=== PATIENT | male | born 1945 | race Caucasian/White ===

== ENCOUNTER → 2017-08-17 11:29 | Outpatient (CLI) | payer MEDICARE, MEDICAID, SELFPAY ==
--- NOTE | 2017-08-17 11:40 | XR_ITS ---
XR foot RT min 3V HISTORY: ITS.REASON: RT FOOT PAIN ORDERING PHYSICIAN: David Seymour MD PATIENT AGE: 72 years COMPARISON: None FINDINGS: There is moderate hallux valgus with first metatarsophalangeal angle of 33 degrees. Osteoarthritic changes are present at the first metatarsophalangeal joint with bony hypertrophic changes of the distal first metatarsal. Flexion deformity involves the second and third toes with mild hypertrophic changes of the distal aspect of the second metatarsal. No fracture or dislocation. No lytic or blastic change. IMPRESSION: 1. Hallux valgus with bunion formation and mild osteoarthritis. 2. Flexion deformity second and third toes
== END ==
PROVIDERS: PCP Internal Medicine Adolescent Medicine; Visit Provider Internal Medicine Adolescent Medicine
DX: M79.671 Pain in right foot (principal)
CPT/HCPCS: 73630

== ENCOUNTER 2017-08-26 13:37 | Outpatient (RCR) | payer MEDICARE, MEDICAID, SELFPAY | END 2017-08-26 14:24 | disposition home or self-care (01) | LOC: PT 13:37 | PROVIDERS: Family Provider Internal Medicine Adolescent Medicine; PCP Internal Medicine Adolescent Medicine; Visit Provider Internal Medicine Adolescent Medicine | DX: M79.671 Pain in right foot (principal) | CPT/HCPCS: 97760 ==

== ENCOUNTER → 2017-10-07 12:42 | Outpatient (CLI) | payer MEDICARE, MEDICAID, SELFPAY ==
--- NOTE | 2017-10-07 12:47 | CA_ITS ---
PROCEDURE: 2-D M-mode and color Doppler study INDICATIONS FOR THE TEST: Chest pain COPD Heart Murmur Tobacco Smoking Palpitations Fatigue Syncope Edema HypertensionXDiabetes MellitusX Rheumatic Fever SOBXDOEXObesityXXHyperlipidemiaX Family History HD Additional History H/O AF,CAD,CABG,STENTS PATIENT INFORMATION HEIGHT: 69 WEIGHT:270 GENDER: Male B/P:130/70 2-D/M-MODE INTERPRETATION: 2-D MEASUREMENTS OBSERVED VALUES IN CMS Right Ventricular Dimension (RVDd) 3.8 Interventricular Septum (Thickness)(IVsd) 1.2 Left Ventricular Internal Dimensions(LVIDd) 5.4 Left Ventricular Posterior Wall (Thickness)(LVPWd) 1.1 Aortic Root 3.4 Aortic Cusp Separation 1.3 Left Atrial Dimensions (LAD) 4.7 2D 1. Technically difficult study because of the patient's factor and poor acoustic windows, repeat study with Definity contrast is recommended. 2. The left atrium is mildly enlarged, left ventricle is normal size, mild concentric left ventricular hypertrophy, visually estimated ejection fraction is approximately 40%, endocardial surface of poorly visualized, there appears to be marked hypokinesis involving the basal septum and inferior wall. A repeat study with definitely contrast is recommended. 3. The aortic valve is thickened and calcified with restriction the leaflet mobility. 4. The mitral and tricuspid valve leaflets are minimally thickened. 5. The pulmonic valve is poorly visualized. 6. No significant pericardial effusion noted. DOPPLER INTERROGATION: Doppler interrogation of the aortic, mitral and tricuspid valvular presence of May gradient across aortic valve of 11 mmHg represents mild aortic stenosis, there is no aortic insufficiency. There is mild mitral and tricuspid regurgitation, diastolic parameters are inconclusive. Tricuspid regurgitant jet velocity insufficient for calculation of the right ventricular systolic pressure. CONCLUSION: 1. Technically difficult study because of the patient's factor and poor acoustic windows 2. Mildly enlarged left atrium, normal left ventricular size, mild concentric left ventricular hypertrophy, estimated ejection fraction 40% with segmental wall motion abnormality described above, repeat study with Definity contrast is recommended. Diastolic parameters are inconclusive. 3. Thickened and calcified aortic valve with mean gradient across valve of 11 mmHg represents mild aortic stenosis, there is no aortic insufficiency. 4. Mild mitral and tricuspid regurgitation 5. No significant pericardial effusion noted.
--- NOTE | 2017-10-07 12:47 | CI_ITS ---
Cerebrovascular Exam Indications: 780.4 Dizziness and giddiness. 785.9 Bruit. IMPRESSIONS 1. The bilateral vertebral arteries are patent with normal antegrade flow. 2. Study suggests 20-49% stenosis involving the right internal carotid artery. 3. Study suggests 20-49%(UPPER END OF SCALE)stenosis involving the left internal carotid artery. History: Coronary artery disease. Stroke. Risk factors: Hypertension. Hyperlipidemia. Carotid duplex study. Complete study and Doppler flow study including spectral analysis, color and alanis scale imaging. Height: Height: 175.3cm. Height: 69in. Weight: Weight: 122.5kg. Weight: 269.4lb. Body mass index: BMI: 39.9kg/m^2. Body surface area: BSA: 2.5m^2. Location: Vascular laboratory. Patient status: Outpatient. Tables: Arterial flow: + +--------+--------+ Location V sys V ed + +--------+--------+ Right CCA - proximal 57.4cm/s 15.7cm/s + +--------+--------+ Right CCA - distal 66cm/s 18.1cm/s + +--------+--------+ Right ECA 112cm/s -------- + +--------+--------+ Right ICA - proximal 64.1cm/s 27cm/s + +--------+--------+ Right ICA - mid 62.9cm/s 30.8cm/s + +--------+--------+ Right ICA - distal 58.5cm/s 23.9cm/s + +--------+--------+ Right vertebral 28.9cm/s -------- + +--------+--------+ Left CCA - proximal 79.2cm/s 13.2cm/s + +--------+--------+ Left CCA - distal 89.3cm/s 20.7cm/s + +--------+--------+ Left ECA 136cm/s -------- + +--------+--------+ Left ICA - proximal 112cm/s 33.5cm/s + +--------+--------+ Left ICA - mid 113cm/s 30cm/s + +--------+--------+ Left ICA - distal 113cm/s 36.3cm/s + +--------+--------+ Left vertebral 30.7cm/s -------- + +--------+--------+ Velocity ratios: + + + + + + Right, V sys Right, V ed Left, V sys Left, V ed + + + + + + Max ICA/dist CCA 0.97 1.7 1.27 1.75 + + + + + + (Report amended ) Electronically signed by: Devonte Salguero [id number]
== END ==
PROVIDERS: Family Provider Internal Medicine Adolescent Medicine; PCP Internal Medicine Adolescent Medicine; Visit Provider Nurse Practitioner Family
DX: R42 Dizziness and giddiness (principal); R09.89 Other specified symptoms and signs involving the circulatory and respiratory systems; I48.0 Paroxysmal atrial fibrillation
CPT/HCPCS: 93225; 93226; 93306; 93880

== ENCOUNTER 2018-02-26 11:45 | Observation (INO) ==
--- NOTE | 2018-02-26 12:17 | Emergency Department Note ---
ED Disposition Clinical Impression: GI bleed Qualifiers: GI bleed type/associated pathology: unspecified gastrointestinal hemorrhage type Qualified Code(s): K92.2 - Gastrointestinal hemorrhage, unspecified Disposition: Still a Patient Condition on Discharge: Good Referrals: David Seymour MD [Primary Care Provider] - - Critical Care Critical Care Time: No Attestation: On , the high probability of a clinically significant, sudden or life threatenin g deterioration of the following system(s) required my full and direct attention, intervention and personal management. The time I documented below is in addition to time spent performing reported procedures but includes the following listed in this critical care notation. Medical Decision Making - Alonso Inquiry Pt receiving controlled substance: No Vital Signs: 02/26/18 11:55 02/26/18 12:29 02/26/18 12:56 Temperature 98.6 F Temperature Source Oral Pulse Rate [Left Radial] 67 66 63 Respiratory Rate 20 Blood Pressure [Right Arm] 130/68 101/58 L 109/54 L Blood Pressure Mean [Right Arm] 88 72 72 Blood Pressure Source [Right Arm] Automatic Cuff Automatic Cuff Blood Pressure Position [Right Arm] Sitting Sitting 02 Sat by Pulse Oximetry 97 99 96 Oxygen Delivery Method Room Air - Lab Data Lab Results 02/26/18 12:10: WBC 10.1, RBC 4.05 L, Hgb 12.3 L, Hct 38.3 L, MCV 94.6 H, MCH 30.3, MCHC 32.0, RDW 14.6, Plt Count 230, MPV 7.8, Neut % (Auto) 60.8, Lymph % (Auto) 29.2, Scott % (Auto) 5.2, Eos % (Auto) 4.3, Baso % (Auto) 0.4, Neut # (Auto) 6.2, Lymph # (Auto) 3.0, Scott # (Auto) 0.5, Eos # (Auto) 0.4, Baso # (Auto) 0.0 02/26/18 12:10: Sodium 139, Potassium 4.3, Chloride 102, Carbon Dioxide 25, Anion Gap 16.3 H, BUN 22 H, Creatinine 1.28, Estimated Creat Clear 51, Estimated GFR 55 L, Est GFR ( Amer) 66, Glucose 98, Calcium 9.3, Total Bilirubin 0.3, AST 15, ALT 30, Alkaline Phosphatase 59, Total Protein 7.3, Albumin 3.4, Globulin 3.9 H, Albumin/Globulin Ratio 0.9 L 02/26/18 12:10: PT 10.4, INR 1.01 02/26/18 12:20: Stool Occult Blood Positive A Result diagrams: 02/26/18 12:10 02/26/18 12:10 Orders (Tests/Meds): ED MEDICATIONS Generic Name Dose Route Start Last Admin Trade Name Freq PRN Reason Stop Dose Admin Sodium Chloride 1,000 mls @ 100 mls/hr 02/26/18 12:30 02/26/18 12:24 Sod Chlor 0.9% 1000ml Bag IV 03/28/18 12:29 100 mls/hr .Q10H YORDY Administration ORDERS Category Date Time Status Occult Blood,Stool Stat Lab 02/26/18 12:20 Ordered - Physician Consults Physician Consulted: Avinash Seymour Time: 12:57 Reason -: Admission Comment/Response: Agrees to admit the patient to the hospital. We discussed the patient's clinical information, including history, exam, laboratory and radiology results and ED course. Per hospital procedure, I will write temporary bridge inpatient orders on the patient. Specific orders requested by the admitting physician: Hold Eliquis and aspirin. They will get a surgery or GI consult in the morning. Additional Consult: Alicia Time: 13:10 Reason -: Surgical Eval/Care Comment/Response: NPO after midnight General Adult HPI - General Chief complaint: GI Bleed Stated complaint: Passing blood through bowels Time Seen by Provider: 02/26/18 12:17 Mode of Arrival: Ambulatory Limitations: No Limitations Description of Symptoms (Recalled from ER Triage Doc. by RN): Pt states that he has been bleeding alot since 0900 Tuesday night, States the blood is bright red and black mixed together. States it had decreased some but still has alot of back. Denies any abdomen pain. - History of Present Illness HPI narrative: Approximately 10 episodes of passing blood per rectum. States that has been orestes th red and black at different times. This morning it was black. No abdominal pain, rectal pain, hematemesis. No history of gastrointestinal bleeding except a small amounts from hemorrhoids. He is on Eliquis for atrial fibrillation and on 81 mg aspirin. He is not nondrinker, quit drinking alcohol 12 years ago. He does not regularly take any other nonsteroidal anti-inflammatories. He says he has had a colonoscopy less than a year ago that was unremarkable. He does not recall whether he has had an EGD in the past. - Related Data Home Medications Medication Instructions Recorded Confirmed Apixaban [Eliquis] 5 mg PO BID 02/26/18 02/26/18 Aspirin 81 mg PO DAILY 02/26/18 02/26/18 Bisoprolol Fumarate [Bisoprolol 10 mg PO BID 02/26/18 02/26/18 10mg Tablet] Cetirizine HCl [Zyrtec] 10 mg PO DAILY 02/26/18 02/26/18 Fluticasone Propionate [Flovent 50 mcg IH DAILY 02/26/18 02/26/18 Diskus] Furosemide [Furosemide 40MG tAB] 20 mg PO DAILY 02/26/18 02/26/18 Insulin Aspart [Novolog Flexpen] 60 unit SQ BID 02/26/18 02/26/18 Lisinopril [Lisinopril 20mg Tab] 20 mg PO DAILY 02/26/18 02/26/18 Metformin HCl [Fortamet] 1,000 mg PO BID 02/26/18 02/26/18 Umeclidinium Brm/Vilanterol Tr 1 each IH DAILY 02/26/18 02/26/18 [Anoro Ellipta 62.5-25 Mcg INH] dilTIAZem HCl [Diltiazem 240mg 240 mg PO BID 02/26/18 02/26/18 24Hr ER Cap] Allergies Allergy/AdvReac Type Severity Reaction Status Date / Time Vydvegl-Hpo-Gdw Reductase Allergy Unknown MUSCLE Verified 02/26/18 12:23 Inhibitor WEAKNESS [[id number]-[id number]-MNX REDUCTASE INHIBITOR] [facility] History I have reviewed the patient's past medical history: Yes Medical History: Reports:: Diabetes Mellitus Type 2 Denies:: Diabetes Mellitus Type 1 - Social History Alcohol Intake: never - Psychiatric History Expresses thoughts of harming self/others: None Suicide Plan Description: No Plan ROS Obtained: Yes All systems reviewed & no additional complaints - Constitutional Constitutional: Denies fever(s) - Cardiovascular Cardiovascular: Denies chest pain - Respiratory Respiratory: No dyspnea - Gastrointestinal Gastrointestingal: Reports: bright red blood in stools, black, tarry stools. Denies: abdominal pain, vomiting blood, vomiting Physical Exam - General General appearance: alert, in no apparent distress - Head Head exam: atraumatic, normocephalic - Eye Eye exam: Present: normal appearance, PERRL, EOMI - ENT ENT exam: Present: mucous membranes moist - Neck Neck exam: Present: normal inspection - Chest Chest inspection: Present: normal inspection, symmetric chest wall rise - Respiratory Respiratory exam: Present: normal lung sounds bilaterally. Absent: respiratory distress - Cardiovascular Cardiovascular exam: Present: regular rate, normal heart sounds - Abdominal Exam Abdominal exam: Present: soft. Absent: distention, tenderness, guarding, rebound - Rectal Exam Rectal exam: Present: hemorrhoids (External), other (Red blood present in the rectum). Absent: fecal impaction, mass, tenderness - Extremities Exam Extremities exam: Present: normal inspection - Neurological Exam Neurological exam: Present: alert, oriented X3, CN II-XII intact. Absent: motor sensory deficit - Psychiatric Psychiatric exam: Present: normal affect, normal mood - Skin Skin exam: Present: warm, dry, normal color. Absent: pallor
[2018-02-26 12:19] LABS: Basophils % 0.4 % (0.1-2.0); Eosinophils # 0.4 K/mm3 (0.0-0.4); Eosinophils % 4.3 % (0.1-12.0); Hematocrit 38.3 % (42.0-52.0); Hemoglobin 12.3 g/dL (14.1-18.0); Lymphocytes % 29.2 K/mm3 (10-50); Mean Corpuscular Hemoglobin 30.3 pg (27.0-31.2); Mean Corpuscular Volume 94.6 fl (80-94); Mean Platelet Volume 7.8 fl (7.4-10.4); Monocytes # 0.5 K/mm3 (0.1-1.0); Monocytes % 5.2 % (1.7-9.3); Neutrophils # 6.2 K/mm3 (1.8-7.8); Neutrophils % 60.8 % (37.0-80.0); Platelet Count 230 K/mm3 (142-424); Red Blood Count 4.05 M/mm3 (4.60-6.20); Red Cell Distribution Width 14.6 % (11.5-17.5); White Blood Count 10.1 K/mm3 (4.8-10.8)
[2018-02-26 12:28] LABS: INR 1.01 (0.9-1.1); Prothrombin Time 10.4 seconds (9.4-11.8)
[2018-02-26 12:32] LABS: Albumin Level 3.4 gm/dL (3.4-5.0); Albumin/Globulin Ratio 0.9 (1.1-1.8); Anion Gap 16.3 mEq/L (5-15); Bilirubin,Total 0.3 mg/dL (0.2-1.0); Calcium 9.3 mg/dL (8.5-10.1); Globulin 3.9 gm/dl (1.3-3.2); Potassium 4.3 mmoL/L (3.5-5.1); Total Protein,Serum 7.3 gm/dL (6.4-8.2)
--- NOTE | 2018-02-26 14:21 | Pharmacy Consult Notes ---
[facility] Pharmacy VTE Monitoring - Patient Demographics Admission date: 02/26/18 Report Date: 02/26/18 Time: 14:21 Allergies/Adverse Reactions: Patient Allergies Fplhbfu-Qdi-Wez Reductase Inhibitor [ZEWCDFO-NIM-XCL REDUCTASE INHIBITOR] Allergy (Unknown, Verified 02/26/18 12:23) MUSCLE WEAKNESS Height: 1.75 m Weight: 127.006 kg Patient Problems: Current Active Problems GI bleed (Acute) - VTE Risk Labs: VTE Related Lab Results Hgb 12.3 g/dL (14.1-18.0) L 02/26/18 12:10 Hct 38.3 % (42.0-52.0) L 02/26/18 12:10 Plt Count 230 K/mm3 (142-424) 02/26/18 12:10 PT 10.4 seconds (9.4-11.8) 02/26/18 12:10 INR 1.01 (0.9-1.1) 02/26/18 12:10 BUN 22 mg/dL (7-18) H 02/26/18 12:10 Creatinine 1.28 mg/dL (0.70-1.30) 02/26/18 12:10 Estimated Creat Clear 51 mL/min (0-300) 02/26/18 12:10 - Prophylaxis Types of VTE Prophylaxis: TEDS Knee High Location of Applied Device: Bilateral Lower Extremeties (DELILAH HOSE ORDERED)
--- NOTE | 2018-02-26 15:48 | History & Physical Report ---
*Admission Date: 02/26/18 *Chief complaint: Bright red blood per rectum *History of present illness: Mr. Leblanc is a 72-year-old male with significant cardiac history status post CABGx5 and stent placement, atrial fibrillation on Eliquis and aspirin, hypertension, morbid obesity, ALICIA, BPH who presents with multiple episodes of bright red blood per rectum. He states that he has had approximately 10 episodes of red blood and black stool since Abelardo evening. He has had a history of some blood over the past several years but nothing as brisk or frequent as this episode. He denies any abdominal pain, rectal pain, hematemesis, nausea or vomiting with his current symptoms. Does not recall history of ever having a colonoscopy or EGD. No known history of diverticulosis. Interestingly per ER documentation patient stated at that time that he had had a colonoscopy less than a year ago that was unremarkable however daughter at bedside does not recall him ever having one to her knowledge and he is unclear at this time once getting to the floor if he is ever had a C scope. Presented to the ER due to his symptoms, patient was admitted for further management. Currently hemodynamically stable, mild anemia compared to baseline of normal hemoglobin. Additionally patient reports that he has had vertigo that waxes and wanes for many years. His daughter is concerned that this may be related to his heart problems. He denies any active worsening dyspnea with exertion, orthopnea, lower extremity edema, uptake [facility] History I have reviewed the patient's past medical history: Yes Medical History: Reports:: Atrial Fibrillation, Diabetes Mellitus Type 2, Hypertension, Myocardial Infarction Denies:: Cancer, Diabetes Mellitus Type 1, MRSA Other Medical History: Reports: Arthritis, Sinus Problems Other Surgeries: Yes: Cardiac Catheterization, Cardiac Surgery, Colonoscopy, Sinus Surgery Amputation: No Fractures: No - *Social History Educational Level: Attended High School Alcohol Intake: never Occupational Status: disabled Housing: house Household Members: none - Psychiatric History Expresses thoughts of harming self/others: None Suicide Plan Description: No Plan Review of Systems - Review of Systems Review of systems:: pertinent systems reviewed and negative unless documented below Meds Home Medications Medication Instructions Recorded Confirmed Type Apixaban [Eliquis] 5 mg PO BID 02/26/18 02/26/18 History Aspirin 81 mg PO DAILY 02/26/18 02/26/18 History Bisoprolol Fumarate [Bisoprolol 5 mg PO BID 02/26/18 02/26/18 History 10mg Tablet] Cetirizine HCl [Zyrtec] 10 mg PO DAILY 02/26/18 02/26/18 History Fluticasone Propionate [Flovent 50 mcg IH DAILY 02/26/18 02/26/18 History Diskus] Furosemide [Furosemide 40MG tAB] 20 mg PO DAILY 02/26/18 02/26/18 History Insulin Aspart [Novolog Flexpen] 0 units SQ ACHS 02/26/18 02/26/18 History Lisinopril [Lisinopril 20mg Tab] 20 mg PO DAILY 02/26/18 02/26/18 History Metformin HCl [Fortamet] 1,000 mg PO BID 02/26/18 02/26/18 History Umeclidinium Brm/Vilanterol Tr 1 each IH DAILY 02/26/18 02/26/18 History [Anoro Ellipta 62.5-25 Mcg INH] dilTIAZem HCl [Diltiazem 240mg 240 mg PO BID 02/26/18 02/26/18 History 24Hr ER Cap] Allergies Allergy/AdvReac Type Severity Reaction Status Date / Time Pjzfvio-Mqe-Hyy Reductase Allergy Unknown MUSCLE Verified 02/26/18 12:23 Inhibitor WEAKNESS [WJNMDIN-VTQ-NSF REDUCTASE INHIBITOR] Exam Vital signs and Labs for Last 24 Hours: Temp Pulse Resp BP Pulse Ox 97.3 F L 67 17 138/63 99 02/26/18 14:45 02/26/18 14:45 02/26/18 14:45 02/26/18 14:45 02/26/18 14:45 Laboratory Results - last 24 hr 02/26/18 12:10: WBC 10.1, RBC 4.05 L, Hgb 12.3 L, Hct 38.3 L, MCV 94.6 H, MCH 30.3, MCHC 32.0, RDW 14.6, Plt Count 230, MPV 7.8, Neut % (Auto) 60.8, Lymph % (Auto) 29.2, Maverick % (Auto) 5.2, Eos % (Auto) 4.3, Baso % (Auto) 0.4, Neut # (Auto) 6.2, Lymph # (Auto) 3.0, Maverick # (Auto) 0.5, Eos # (Auto) 0.4, Baso # (Auto) 0.0 02/26/18 12:10: Sodium 139, Potassium 4.3, Chloride 102, Carbon Dioxide 25, Anion Gap 16.3 H, BUN 22 H, Creatinine 1.28, Estimated Creat Clear 51, Estimated GFR 55 L, Est GFR ( Amer) 66, Glucose 98, Calcium 9.3, Total Bilirubin 0.3, AST 15, ALT 30, Alkaline Phosphatase 59, Total Protein 7.3, Albumin 3.4, Globulin 3.9 H, Albumin/Globulin Ratio 0.9 L 02/26/18 12:10: PT 10.4, INR 1.01 02/26/18 12:20: Stool Occult Blood Positive A I & O for Last 24 hours: Intake & Output 02/23/18 02/24/18 02/25/18 02/26/18 23:59 23:59 23:59 22:59 Weight 124.426 kg - *Routine HEENT Exam Head: Present: normocephalic, atraumatic Eye: Present: EOMI, PERRL ENT: Present: mucous membranes moist - *Routine Neck Exam Present: supple. Absent: JVD - *Routine Respiratory Exam Present: CTA bilaterally. Absent: prolonged expiratory phase, wheezes, crackles - *Routine Cardiovascular Exam Present: Normal S2, murmur, irregular rhythm Comments: Distant heart sounds - *Routine Abdominal Exam Present: soft, normoactive bowel sounds. Absent: tenderness Comments: Protuberant - *Routine Rectal Exam Patient deferred: visual exam - *Routine Exam Patient deferred: penile exam - *Routine Extremities Exam Present: edema. Absent: cyanosis, clubbing - *Routine Skin Exam Present: intact. Absent: cyanosis, erythema - *Routine Neurological Exam Present: alert, oriented X3, CN II-XII intact. Absent: altered mental status, normal speech hearing impairment Assessment and Plan (1) Heart failure with reduced ejection fraction, NYHA class II Current visit: Yes Status: Chronic Category: Medical Code(s): I50.20 - Unspecified systolic (congestive) heart failure Last echo performed in September with EF 40% -Continue home medications -Consider cardiology consult if symptoms worsen -Continues lisinopril for hypertension (2) A-fib Current visit: Yes Status: Chronic Category: Medical Code(s): I48.91 - Unspecified atrial fibrillation On Eliquis and aspirin, hold in setting of GI bleed -Rate controlled at this time diltiazem, continue home medication (3) Anemia Current visit: Yes Status: Acute Qualifiers: Anemia type: other cause Other causes of anemia: acute posthemorrhagic Qualified Code(s): D62 - Acute posthemorrhagic anemia Category: Medical Code(s): D64.9 - Anemia, unspecified Due to GI bleed -Monitor for further bleed -Transfusion goal greater than 7 if has further bleeding -Repeat CBC in the morning, or as needed if has brisk bleed (4) Class 3 severe obesity due to excess calories in adult Current visit: Yes Status: Chronic Qualifiers: Serious obesity comorbidity presence: with serious comorbidity Category: Medical Code(s): E66.01 - Morbid (severe) obesity due to excess calories Complicates all aspects of care (5) Obstructive sleep apnea Current visit: Yes Status: Chronic Category: Medical Code(s): G47.33 - Obstructive sleep apnea (adult) (pediatric) Wears CPAP at home, declined wearing CPAP in the hospital, will take precautions with elevating head of bed and supplemental oxygen if needed if symptomatic in the hospital (6) GI bleed Current visit: Yes Status: Acute Qualifiers: GI bleed type/associated pathology: unspecified gastrointestinal hemorrhage type Qualified Code(s): K92.2 - Gastrointestinal hemorrhage, unspecified Category: Medical Code(s): K92.2 - Gastrointestinal hemorrhage, unspecified Due to suspected reticulosis, hemorrhoids, upper GI bleed, AVMs, cancer. At this time differential is broad given no history of screening colonoscopies. Continue to monitor for further bleeding -Consult surgery for scope in the morning -Holding anti-coag -N.p.o. at midnight with maintenance fluids beginning at that time
[2018-02-26 20:19] LABS: Basophils % 0.4 % (0.1-2.0); Eosinophils # 0.4 K/mm3 (0.0-0.4); Eosinophils % 4.7 % (0.1-12.0); Hemoglobin 11.2 g/dL (14.1-18.0); Lymphocytes # 3.1 K/mm3 (0.7-4.5); Lymphocytes % 33.5 K/mm3 (10-50); Mean Corpuscular HGB Conc 31.8 g/dL (31.8-35.4); Mean Corpuscular Hemoglobin 29.9 pg (27.0-31.2); Mean Corpuscular Volume 93.9 fl (80-94); Mean Platelet Volume 7.5 fl (7.4-10.4); Monocytes # 0.5 K/mm3 (0.1-1.0); Monocytes % 4.9 % (1.7-9.3); Neutrophils # 5.2 K/mm3 (1.8-7.8); Neutrophils % 56.5 % (37.0-80.0); Platelet Count 224 K/mm3 (142-424); Red Blood Count 3.73 M/mm3 (4.60-6.20); Red Cell Distribution Width 14.6 % (11.5-17.5); White Blood Count 9.2 K/mm3 (4.8-10.8)
[2018-02-27 06:45] LABS: Basophils % 0.3 % (0.1-2.0); Eosinophils # 0.5 K/mm3 (0.0-0.4); Eosinophils % 5.8 % (0.1-12.0); Hematocrit 35.9 % (42.0-52.0); Hemoglobin 11.3 g/dL (14.1-18.0); Lymphocytes # 2.9 K/mm3 (0.7-4.5); Lymphocytes % 35.6 K/mm3 (10-50); Mean Corpuscular HGB Conc 31.5 g/dL (31.8-35.4); Mean Corpuscular Hemoglobin 29.8 pg (27.0-31.2); Mean Corpuscular Volume 94.7 fl (80-94); Mean Platelet Volume 7.8 fl (7.4-10.4); Monocytes # 0.4 K/mm3 (0.1-1.0); Monocytes % 4.9 % (1.7-9.3); Neutrophils # 4.4 K/mm3 (1.8-7.8); Neutrophils % 53.5 % (37.0-80.0); Platelet Count 221 K/mm3 (142-424); Red Blood Count 3.79 M/mm3 (4.60-6.20); Red Cell Distribution Width 14.8 % (11.5-17.5); White Blood Count 8.1 K/mm3 (4.8-10.8)
[2018-02-27 06:53] LABS: Anion Gap 12.1 mEq/L (5-15); Potassium 4.1 mmoL/L (3.5-5.1)
--- NOTE | 2018-02-27 08:27 | Progress Note ---
Internal Medicine - PN: Farhad *Date: 02/27/18 *Time: 08:26 Interval history: Overall patient feels fairly well. He has had some gas and a small bowel movement without any blood. He reports no abdominal pain. Reports no vomiting. Exam Vital signs and Labs for Last 24 Hours: Temp Pulse Resp BP Pulse Ox 98.2 F 65 18 118/59 L 97 02/27/18 07:38 02/27/18 07:38 02/27/18 07:38 02/27/18 07:38 02/27/18 07:38 Laboratory Results - last 24 hr 02/26/18 12:10: WBC 10.1, RBC 4.05 L, Hgb 12.3 L, Hct 38.3 L, MCV 94.6 H, MCH 30.3, MCHC 32.0, RDW 14.6, Plt Count 230, MPV 7.8, Neut % (Auto) 60.8, Lymph % (Auto) 29.2, [place] % (Auto) 5.2, Eos % (Auto) 4.3, Baso % (Auto) 0.4, Neut # (Auto) 6.2, Lymph # (Auto) 3.0, [place] # (Auto) 0.5, Eos # (Auto) 0.4, Baso # (Auto) 0.0 02/26/18 12:10: Sodium 139, Potassium 4.3, Chloride 102, Carbon Dioxide 25, Anion Gap 16.3 H, BUN 22 H, Creatinine 1.28, Estimated Creat Clear 51, Estimated GFR 55 L, Est GFR ( Amer) 66, Glucose 98, Calcium 9.3, Total Bilirubin 0.3, AST 15, ALT 30, Alkaline Phosphatase 59, Total Protein 7.3, Albumin 3.4, Globulin 3.9 H, Albumin/Globulin Ratio 0.9 L 02/26/18 12:10: PT 10.4, INR 1.01 02/26/18 12:20: Stool Occult Blood Positive A 02/26/18 16:30: POC Glucose 170 H 02/26/18 20:01: WBC 9.2, RBC 3.73 L, Hgb 11.2 L, Hct 35.0 L, MCV 93.9, MCH 29.9, MCHC 31.8, RDW 14.6, Plt Count 224, MPV 7.5, Neut % (Auto) 56.5, Lymph % (Auto) 33.5, [place] % (Auto) 4.9, Eos % (Auto) 4.7, Baso % (Auto) 0.4, Neut # (Auto) 5.2, Lymph # (Auto) 3.1, [place] # (Auto) 0.5, Eos # (Auto) 0.4, Baso # (Auto) 0.0 02/26/18 20:45: POC Glucose 184 H 02/27/18 05:49: WBC 8.1, RBC 3.79 L, Hgb 11.3 L, Hct 35.9 L, MCV 94.7 H, MCH 29.8, MCHC 31.5 L, RDW 14.8, Plt Count 221, MPV 7.8, Neut % (Auto) 53.5, Lymph % (Auto) 35.6, [place] % (Auto) 4.9, Eos % (Auto) 5.8, Baso % (Auto) 0.3, Neut # (Auto) 4.4, Lymph # (Auto) 2.9, [place] # (Auto) 0.4, Eos # (Auto) 0.5 H, Baso # (Auto) 0.0 02/27/18 05:49: Sodium 139, Potassium 4.1, Chloride 104, Carbon Dioxide 27, Anion Gap 12.1, BUN 15 D, Creatinine 1.04, Estimated Creat Clear 60, Estimated GFR 70, Est GFR ( Amer) 84 D, Glucose 171 H D, Calcium 9.0 02/27/18 06:03: POC Glucose 180 H I & O for Last 24 hours: Intake & Output 02/24/18 02/25/18 02/26/18 02/27/18 12:59 12:59 11:59 11:59 Intake Total 1542 / 1542 Output Total 2300 / 2300 Balance -758 / -758 Weight 275 lb 2 oz Narrative: Patient is awake, alert, oropharynx clear, no JVD. Heart rate rate controlled with occasional ectopic beats. Lungs are clear. Abdomen is soft and nontender. I reviewed labs showing no significant decrease in hemoglobin. Assessment and Plan (1) Heart failure with reduced ejection fraction, NYHA class II Current visit: Yes Status: Chronic Category: Medical Code(s): I50.20 - Unspecified systolic (congestive) heart failure (2) A-fib Current visit: Yes Status: Chronic Category: Medical Code(s): I48.91 - Unspecified atrial fibrillation (3) Anemia Current visit: Yes Status: Acute Qualifiers: Anemia type: other cause Other causes of anemia: acute posthemorrhagic Qualified Code(s): D62 - Acute posthemorrhagic anemia Category: Medical Code(s): D64.9 - Anemia, unspecified (4) Class 3 severe obesity due to excess calories in adult Current visit: Yes Status: Chronic Qualifiers: Serious obesity comorbidity presence: with serious comorbidity Category: Medical Code(s): E66.01 - Morbid (severe) obesity due to excess calories (5) Obstructive sleep apnea Current visit: Yes Status: Chronic Category: Medical Code(s): G47.33 - Obstructive sleep apnea (adult) (pediatric) (6) GI bleed Current visit: Yes Status: Acute Qualifiers: GI bleed type/associated pathology: unspecified gastrointestinal hemorrhage type Qualified Code(s): K92.2 - Gastrointestinal hemorrhage, unspecified Category: Medical Code(s): K92.2 - Gastrointestinal hemorrhage, unspecified - Assessment and plan all Dx Assessment and Plan for all problems:: Patient's heart failure and A. fib are stable. Continue to hold anticoagulation therapy. Patient reports that his bleeding started after he loaded some wood in his fireplace Tuesday night. This sounds to me like hemorrhoidal bleeding. Surgical evaluation to schedule endoscopy. I think patient is safe to discharge while holding anticoagulation after surgical evaluation.
--- NOTE | 2018-02-27 11:28 | Consult Report ---
*Admission Date: 02/26/18 *Chief complaint: Blood in stools *History of present illness: Patient is a pleasant 72-year-old white male on Eliquis for atrial fibrillation. He states that Tuesday he began noticing some passage of bright red blood per rectum. He states that this was mixed in his stools of darker blood. He had multiple bloody bowel movements over the next couple of days and then presented to the emergency department yesterday afternoon. Patient was admitted for inpatient management of GI bleed. Initially it was felt that the patient had a colonoscopy within the past year but it is apparent more likely that he has never had prior colonoscopy or upper endoscopy. He was admitted and had remained stable with essentially stable hemoglobin. Surgical consultation was obtained. Review of Systems - Review of Systems Review of systems:: pertinent systems reviewed and negative unless documented below [facility] History Medical History: Reports:: Atrial Fibrillation, Diabetes Mellitus Type 2, Hypertension, Myocardial Infarction Denies:: Cancer, Diabetes Mellitus Type 1, MRSA Other Medical History: Reports: Arthritis, Sinus Problems Other Surgeries: Yes: Cardiac Catheterization, Cardiac Surgery, Colonoscopy, Sinus Surgery Amputation: No Fractures: No - *Social History Educational Level: Attended High School Alcohol Intake: never Occupational Status: disabled Housing: house Household Members: none - Psychiatric History Expresses thoughts of harming self/others: None Suicide Plan Description: No Plan Meds Home Medications Medication Instructions Recorded Confirmed Type Apixaban [Eliquis] 5 mg PO BID 02/26/18 02/26/18 History Aspirin 81 mg PO DAILY 02/26/18 02/26/18 History Bisoprolol Fumarate [Bisoprolol 5 mg PO BID 02/26/18 02/26/18 History 10mg Tablet] Cetirizine HCl [Zyrtec] 10 mg PO DAILY 02/26/18 02/26/18 History Fluticasone Propionate [Flovent 50 mcg IH DAILY 02/26/18 02/26/18 History Diskus] Furosemide [Furosemide 40MG tAB] 20 mg PO DAILY 02/26/18 02/26/18 History Insulin Aspart [Novolog Flexpen] 0 units SQ ACHS 02/26/18 02/26/18 History Lisinopril [Lisinopril 20mg Tab] 20 mg PO DAILY 02/26/18 02/26/18 History Metformin HCl [Fortamet] 1,000 mg PO BID 02/26/18 02/26/18 History Umeclidinium Brm/Vilanterol Tr 1 each IH DAILY 02/26/18 02/26/18 History [Anoro Ellipta 62.5-25 Mcg INH] dilTIAZem HCl [Diltiazem 240mg 240 mg PO BID 02/26/18 02/26/18 History 24Hr ER Cap] Allergies Allergy/AdvReac Type Severity Reaction Status Date / Time [id number]-Qsb-Kfd Reductase Allergy Unknown MUSCLE Verified 02/26/18 12:23 Inhibitor WEAKNESS [[id number] REDUCTASE INHIBITOR] Exam Vital signs and Labs for Last 24 Hours: Temp Pulse Resp BP Pulse Ox 98.2 F 65 18 118/59 L 97 02/27/18 07:38 02/27/18 09:53 02/27/18 09:53 02/27/18 07:38 02/27/18 09:53 Laboratory Results - last 24 hr 02/26/18 12:10: WBC 10.1, RBC 4.05 L, Hgb 12.3 L, Hct 38.3 L, MCV 94.6 H, MCH 30.3, MCHC 32.0, RDW 14.6, Plt Count 230, MPV 7.8, Neut % (Auto) 60.8, Lymph % (Auto) 29.2, [place] % (Auto) 5.2, Eos % (Auto) 4.3, Baso % (Auto) 0.4, Neut # (Auto) 6.2, Lymph # (Auto) 3.0, [place] # (Auto) 0.5, Eos # (Auto) 0.4, Baso # (Auto) 0.0 02/26/18 12:10: Sodium 139, Potassium 4.3, Chloride 102, Carbon Dioxide 25, Anion Gap 16.3 H, BUN 22 H, Creatinine 1.28, Estimated Creat Clear 51, Estimated GFR 55 L, Est GFR ( Amer) 66, Glucose 98, Calcium 9.3, Total Bilirubin 0.3, AST 15, ALT 30, Alkaline Phosphatase 59, Total Protein 7.3, Albumin 3.4, Globulin 3.9 H, Albumin/Globulin Ratio 0.9 L 02/26/18 12:10: PT 10.4, INR 1.01 02/26/18 12:20: Stool Occult Blood Positive A 02/26/18 16:30: POC Glucose 170 H 02/26/18 20:01: WBC 9.2, RBC 3.73 L, Hgb 11.2 L, Hct 35.0 L, MCV 93.9, MCH 29.9, MCHC 31.8, RDW 14.6, Plt Count 224, MPV 7.5, Neut % (Auto) 56.5, Lymph % (Auto) 33.5, [place] % (Auto) 4.9, Eos % (Auto) 4.7, Baso % (Auto) 0.4, Neut # (Auto) 5.2, Lymph # (Auto) 3.1, [place] # (Auto) 0.5, Eos # (Auto) 0.4, Baso # (Auto) 0.0 02/26/18 20:45: POC Glucose 184 H 02/27/18 05:49: WBC 8.1, RBC 3.79 L, Hgb 11.3 L, Hct 35.9 L, MCV 94.7 H, MCH 29.8, MCHC 31.5 L, RDW 14.8, Plt Count 221, MPV 7.8, Neut % (Auto) 53.5, Lymph % (Auto) 35.6, [place] % (Auto) 4.9, Eos % (Auto) 5.8, Baso % (Auto) 0.3, Neut # (Auto) 4.4, Lymph # (Auto) 2.9, [place] # (Auto) 0.4, Eos # (Auto) 0.5 H, Baso # (Auto) 0.0 02/27/18 05:49: Sodium 139, Potassium 4.1, Chloride 104, Carbon Dioxide 27, Anion Gap 12.1, BUN 15 D, Creatinine 1.04, Estimated Creat Clear 60, Estimated GFR 70, Est GFR ( Amer) 84 D, Glucose 171 H D, Calcium 9.0 02/27/18 06:03: POC Glucose 180 H I & O for Last 24 hours: Intake & Output 02/24/18 02/25/18 02/26/18 02/27/18 12:59 12:59 11:59 11:59 Intake Total 1542 / 1542 Output Total 2300 / 2300 Balance -758 / -758 Weight 275 lb 2 oz - Constitutional no acute distress - *Routine Respiratory Exam Present: CTA bilaterally - *Routine Cardiovascular Exam Present: Normal S1, Normal S2 - *Routine Abdominal Exam Present: soft Results - Labs 02/27/18 05:49 02/27/18 05:49 Laboratory Results - last 24 hr 02/26/18 12:10: WBC 10.1, RBC 4.05 L, Hgb 12.3 L, Hct 38.3 L, MCV 94.6 H, MCH 30.3, MCHC 32.0, RDW 14.6, Plt Count 230, MPV 7.8, Neut % (Auto) 60.8, Lymph % (Auto) 29.2, [place] % (Auto) 5.2, Eos % (Auto) 4.3, Baso % (Auto) 0.4, Neut # (Auto) 6.2, Lymph # (Auto) 3.0, [place] # (Auto) 0.5, Eos # (Auto) 0.4, Baso # (Auto) 0.0 02/26/18 12:10: Sodium 139, Potassium 4.3, Chloride 102, Carbon Dioxide 25, Anion Gap 16.3 H, BUN 22 H, Creatinine 1.28, Estimated Creat Clear 51, Estimated GFR 55 L, Est GFR ( Amer) 66, Glucose 98, Calcium 9.3, Total Bilirubin 0.3, AST 15, ALT 30, Alkaline Phosphatase 59, Total Protein 7.3, Albumin 3.4, Globulin 3.9 H, Albumin/Globulin Ratio 0.9 L 02/26/18 12:10: PT 10.4, INR 1.01 02/26/18 12:20: Stool Occult Blood Positive A 02/26/18 16:30: POC Glucose 170 H 02/26/18 20:01: WBC 9.2, RBC 3.73 L, Hgb 11.2 L, Hct 35.0 L, MCV 93.9, MCH 29.9, MCHC 31.8, RDW 14.6, Plt Count 224, MPV 7.5, Neut % (Auto) 56.5, Lymph % (Auto) 33.5, [place] % (Auto) 4.9, Eos % (Auto) 4.7, Baso % (Auto) 0.4, Neut # (Auto) 5.2, Lymph # (Auto) 3.1, [place] # (Auto) 0.5, Eos # (Auto) 0.4, Baso # (Auto) 0.0 02/26/18 20:45: POC Glucose 184 H 02/27/18 05:49: WBC 8.1, RBC 3.79 L, Hgb 11.3 L, Hct 35.9 L, MCV 94.7 H, MCH 29.8, MCHC 31.5 L, RDW 14.8, Plt Count 221, MPV 7.8, Neut % (Auto) 53.5, Lymph % (Auto) 35.6, [place] % (Auto) 4.9, Eos % (Auto) 5.8, Baso % (Auto) 0.3, Neut # (Auto) 4.4, Lymph # (Auto) 2.9, [place] # (Auto) 0.4, Eos # (Auto) 0.5 H, Baso # (Auto) 0.0 02/27/18 05:49: Sodium 139, Potassium 4.1, Chloride 104, Carbon Dioxide 27, Anion Gap 12.1, BUN 15 D, Creatinine 1.04, Estimated Creat Clear 60, Estimated GFR 70, Est GFR ( Amer) 84 D, Glucose 171 H D, Calcium 9.0 02/27/18 06:03: POC Glucose 180 H Assessment and Plan (1) Heart failure with reduced ejection fraction, NYHA class II Current visit: Yes Status: Chronic Category: Medical Code(s): I50.20 - Unspecified systolic (congestive) heart failure (2) A-fib Current visit: Yes Status: Chronic Category: Medical Code(s): I48.91 - Unspecified atrial fibrillation (3) Anemia Current visit: Yes Status: Acute Qualifiers: Anemia type: other cause Other causes of anemia: acute posthemorrhagic Qualified Code(s): D62 - Acute posthemorrhagic anemia Category: Medical Code(s): D64.9 - Anemia, unspecified (4) Class 3 severe obesity due to excess calories in adult Current visit: Yes Status: Chronic Qualifiers: Serious obesity comorbidity presence: with serious comorbidity Category: Medical Code(s): E66.01 - Morbid (severe) obesity due to excess calories (5) Obstructive sleep apnea Current visit: Yes Status: Chronic Category: Medical Code(s): G47.33 - Obstructive sleep apnea (adult) (pediatric) (6) GI bleed Current visit: Yes Status: Acute Qualifiers: GI bleed type/associated pathology: unspecified gastrointestinal hemorrhage type Qualified Code(s): K92.2 - Gastrointestinal hemorrhage, unspecified Category: Medical Code(s): K92.2 - Gastrointestinal hemorrhage, unspecified - Assessment and plan all Dx Assessment and Plan for all problems:: Clinically this seems to be more of a lower allergy. However, I would advocate upper endoscopy prior to discharge to rule out upper GI source. This will be for diagnostic purposes. If this is unremarkable he may be able to be disc harged and follow-up as an outpatient for scheduling of colonoscopy.
--- NOTE | 2018-02-27 15:05 | Progress Note ---
[facility] Anesthesia Checklist - Patient Identification Patient Identification: Arm Band - Structural Data Admitted From: Home Planned Operative Procedure/s: egd Consent for Planned Operative Procedure(s) Verified: Yes Verified Documents: Surgical Consent, History and Physical - NPO Status Verified Time NPO: 00:00 - Additional verifications Anesthesia Reactions: No - Airway Assessment C-Spine Mobility Assessed: Yes (mp3) TMJ Mobility Assessed: Yes Dentition: Good Dentition - Neurological Assessment Level of Consciousness: Awake, Alert - Anesthesia Plan Anesthesia Risk discussed: Yes Anesthesia Plan: Verified ASA Class: III Anesthesia Type: [facility] History I have reviewed the patient's past medical history: Yes Medical History: Reports:: Atrial Fibrillation, Coronary Artery Disease, Diabetes Mellitus Type 2, Hyperlipidemia, Hypertension, Myocardial Infarction Denies:: Cancer, Diabetes Mellitus Type 1, MRSA Other Medical History: Reports: Arthritis, Sinus Problems Other Surgeries: Yes: Cardiac Catheterization, Cardiac Surgery, Colonoscopy, Sinus Surgery Amputation: No Fractures: No - *Social History Educational Level: Attended High School Alcohol Intake: never Occupational Status: disabled Housing: house Household Members: none - Psychiatric History Expresses thoughts of harming self/others: None Suicide Plan Description: No Plan
--- NOTE | 2018-02-27 15:08 | Procedure Note ---
- Procedure: Date: 02/27/18 Procedure Performed:: Esophagogastroduodenoscopy Indications:: Patient is a 72-year-old white male on Eliquis for atrial fibrillation. He had several days what he describes as bloody bowel movements. The mostly bright fresh blood but occasionally dark and characterized as "black". He presented to the emergency department yesterday afternoon and was admitted for inpatient management. His hemoglobin did remain stable. Surgical consultation was obtained for outpatient colonoscopy. It was felt that this was most likely a self-limited lower GI source. However, prior to discharge, plan was made for upper endoscopy to evaluate for potential upper GI etiology which could rebleed. Performing Provider:: Hemal Vargas MD Referring Provider:: David Seymour MD Sedation:: Propofol Procedure:: Consent was obtained and patient was taken to endoscopy procedure room. He was positioned in a lateral decubitus position. Adequate intravenous sedation was achieved. Olympus endoscope was inserted via the oropharynx and advanced through the esophagus. There was some minor findings of chronic nonerosive esophagitis. At the gastroesophageal junction there were the beginnings of a Schatzki's ring. Biopsies were not performed due to the patient being on Eliquis until yesterday. Stomach was cannulated and insufflated. Retroflexion revealed a moderate sliding hiatal hernia. There is very minor nonerosive diffuse gastritis. Pylorus was traversed. Duodenal bulb and duodenal sweep appeared unremarkable. There was no evidence of any appreciable source for GI blood loss on this upper endoscopy. Stomach was desufflated and the endoscope was withdrawn. Findings:: Hiatal hernia Beginnings of Schatzki's ring Scant nonerosive gastritis Recommendations:: Patient may be able to be discharged home to follow-up as an outpatient to schedule colonoscopy. Complications:: None Estimated blood obtained (mL): 0
--- NOTE | 2018-02-27 16:20 | Discharge Summary ---
General - General Admission date:: 02/26/18 Discharge date: 02/27/18 HPI HPI: Mr. Leblanc is a 72-year-old male with significant cardiac history status post CABGx5 and stent placement, atrial fibrillation on Eliquis and aspirin, hypertension, morbid obesity, ALICIA, BPH who presents with multiple episodes of bright red blood per rectum. He states that he has had approximately 10 episodes of red blood and black stool since Tuesday evening. He has had a history of some blood over the past several years but nothing as brisk or frequent as this episode. He denies any abdominal pain, rectal pain, hematemesis, nausea or vomiting with his current symptoms. Does not recall history of ever having a colonoscopy or EGD. No known history of diverticulosis. Interestingly per ER documentation patient stated at that time that he had had a colonoscopy less than a year ago that was unremarkable however daughter at bedside does not recall him ever having one to her knowledge and he is unclear at this time once getting to the floor if he is ever had a C scope. Presented to the ER due to his symptoms, patient was admitted for further management. Currently hemodynamically stable, mild anemia compared to baseline of normal hemoglobin. Additionally patient reports that he has had vertigo that waxes and wanes for many years. His daughter is concerned that this may be related to his heart problems. He denies any active worsening dyspnea with exertion, orthopnea, lower extremity edema, uptake Hospital Course Hospital Course: Patient was admitted. Serial H/H levels remained stable. Patient underwent endoscopy - results and recs copied and pasted as below: "Procedure:: Consent was obtained and patient was taken to endoscopy procedure room. He was positioned in a lateral decubitus position. Adequate intravenous sedation was achieved. Olympus endoscope was inserted via the oropharynx and advanced through the esophagus. There was some minor findings of chronic nonerosive esophagitis. At the gastroesophageal junction there were the beginnings of a Schatzki's ring. Biopsies were not performed due to the patient being on Eliquis until yesterday. Stomach was cannulated and insufflated. Retroflexion revealed a moderate sliding hiatal hernia. There is very minor nonerosive diffuse gastritis. Pylorus was traversed. Duodenal bulb and duodenal sweep appeared unremarkable. There was no evidence of any appreciable source for GI blood loss on this upper endoscopy. Stomach was desufflated and the endoscope was withdrawn. Findings:: Hiatal hernia Beginnings of Schatzki's ring Scant nonerosive gastritis Recommendations:: Patient may be able to be discharged home to follow-up as an outpatient to sched ule colonoscopy. Complications:: None Patient ate well after the procedure.... He'll be dcd home to f/u as an outpatient. Hold NOAC until that visit. Objective Vital signs: Temp Pulse Resp BP Pulse Ox 99 F 68 16 136/74 97 02/27/18 15:20 02/27/18 15:44 02/27/18 15:44 02/27/18 15:44 02/27/18 15:44 Narrative: See progress note from earlier today. Results Labs on day of discharge: Labs from last 24 hours 02/27/18 02/27/18 02/27/18 11:30 06:03 05:49 WBC RBC Hgb Hct MCV MCH MCHC RDW Plt Count MPV Neut % (Auto) Lymph % (Auto) [place] % (Auto) Eos % (Auto) Baso % (Auto) Neut # (Auto) Lymph # (Auto) [place] # (Auto) Eos # (Auto) Baso # (Auto) Sodium 139 Potassium 4.1 Chloride 104 Carbon Dioxide 27 Anion Gap 12.1 BUN 15 D Creatinine 1.04 Estimated Creat Clear 60 Estimated GFR 70 Est GFR ( Amer) 84 D Glucose 171 H D POC Glucose 231 H 180 H Calcium 9.0 02/27/18 02/26/18 02/26/18 05:49 20:45 20:01 WBC 8.1 9.2 RBC 3.79 L 3.73 L Hgb 11.3 L 11.2 L Hct 35.9 L 35.0 L MCV 94.7 H 93.9 MCH 29.8 29.9 MCHC 31.5 L 31.8 RDW 14.8 14.6 Plt Count 221 224 MPV 7.8 7.5 Neut % (Auto) 53.5 56.5 Lymph % (Auto) 35.6 33.5 [place] % (Auto) 4.9 4.9 Eos % (Auto) 5.8 4.7 Baso % (Auto) 0.3 0.4 Neut # (Auto) 4.4 5.2 Lymph # (Auto) 2.9 3.1 [place] # (Auto) 0.4 0.5 Eos # (Auto) 0.5 H 0.4 Baso # (Auto) 0.0 0.0 Sodium Potassium Chloride Carbon Dioxide Anion Gap BUN Creatinine Estimated Creat Clear Estimated GFR Est GFR ( Amer) Glucose POC Glucose 184 H Calcium 02/26/18 16:30 WBC RBC Hgb Hct MCV MCH MCHC RDW Plt Count MPV Neut % (Auto) Lymph % (Auto) [place] % (Auto) Eos % (Auto) Baso % (Auto) Neut # (Auto) Lymph # (Auto) [place] # (Auto) Eos # (Auto) Baso # (Auto) Sodium Potassium Chloride Carbon Dioxide Anion Gap BUN Creatinine Estimated Creat Clear Estimated GFR Est GFR ( Amer) Glucose POC Glucose 170 H Calcium DS: Diagnosis - Discharge Diagnosis (1) Heart failure with reduced ejection fraction, NYHA class II Status: Chronic (2) A-fib Status: Chronic (3) Anemia Status: Ruled-out (4) Class 3 severe obesity due to excess calories in adult Status: Chronic (5) Obstructive sleep apnea Status: Chronic (6) GI bleed Status: Resolved Discharge Plan - Patient Discharge Instructions ACTIVITY: Continue current activity Patient Instructions: Gastrointestinal Bleeding - Follow up Plan Follow up with: Juan Pablo Da Silva MD [Staff Physician] - 03/02/18 Hemal Vargas MD [Staff Physician] - 1 week Disposition: Home, Self-Nursing Home Medications: Home Medications Medication Instructions Recorded Confirmed Type Apixaban [Eliquis] 5 mg PO BID 02/26/18 02/26/18 History Aspirin 81 mg PO DAILY 02/26/18 02/26/18 History Bisoprolol Fumarate [Bisoprolol 5 mg PO BID 02/26/18 02/26/18 History 10mg Tablet] Cetirizine HCl [Zyrtec] 10 mg PO DAILY 02/26/18 02/26/18 History Fluticasone Propionate [Flovent 50 mcg IH DAILY 02/26/18 02/26/18 History Diskus] Furosemide [Furosemide 40MG tAB] 20 mg PO DAILY 02/26/18 02/26/18 History Insulin Aspart [Novolog Flexpen] 0 units SQ ACHS 02/26/18 02/26/18 History Lisinopril [Lisinopril 20mg Tab] 20 mg PO DAILY 02/26/18 02/26/18 History Metformin HCl [Fortamet] 1,000 mg PO BID 02/26/18 02/26/18 History Umeclidinium Brm/Vilanterol Tr 1 each IH DAILY 02/26/18 02/26/18 History [Anoro Ellipta 62.5-25 Mcg INH] dilTIAZem HCl [Diltiazem 240mg 240 mg PO BID 02/26/18 02/26/18 History 24Hr ER Cap] Prescriptions/Medication Reconciliation: Continue Fluticasone Propionate [Flovent Diskus] 50 mcg IH DAILY Umeclidinium Brm/Vilanterol Tr [Anoro Ellipta 62.5-25 Mcg INH] 1 each IH DAILY Cetirizine HCl [Zyrtec] 10 mg PO DAILY Aspirin 81 mg PO DAILY Lisinopril [Lisinopril 20mg Tab] 20 mg PO DAILY Furosemide [Furosemide 40MG tAB] 20 mg PO DAILY Metformin HCl [Fortamet] 1,000 mg PO BID Bisoprolol Fumarate [Bisoprolol 10mg Tablet] 5 mg PO BID dilTIAZem HCl [Diltiazem 240mg 24Hr ER Cap] 240 mg PO BID Insulin Aspart [Novolog Flexpen] 0 units SQ ACHS Discontinued Apixaban [Eliquis] 5 mg PO BID
[2018-02-27 17:04] VITALS: BP 145/67
== END 2018-02-27 17:10 | disposition home or self-care (01) ==
LOC: 2ND 11:45 → ER 11:45 → 2ND 14:36
PROVIDERS: ADMIT Internal Medicine Adolescent Medicine; ATTEND Internal Medicine Adolescent Medicine
CPT/HCPCS: 36415; 80048; 80053; 82272; 82962; 85025; 85610; 94640; 96365; 99284; G0328; G0378

== ENCOUNTER → 2018-03-31 12:11 | Outpatient (CLI) | payer MEDICARE, SELFPAY ==
--- NOTE | 2018-03-31 12:17 | XR_ITS ---
XR chest 2V HISTORY: Right-sided chest pain when breathing, previous smoker ITS.REASON: PLEURISY,RESP. TRACT INFECTION ORDERING PHYSICIAN: Liane Barnett PATIENT AGE: 72 years COMPARISON: None FINDINGS: Unremarkable heart size. There has been a prior median sternotomy. Consolidation is present in the right upper lobe and right lower lobe pneumonia. The left lung is clear. No acute bony anomalies. IMPRESSION: Right upper and right lower lobe pneumonia
== END ==
PROVIDERS: PCP Internal Medicine Adolescent Medicine; Visit Provider Nurse Practitioner Family
DX: J22 Unspecified acute lower respiratory infection (principal); R09.1 Pleurisy
CPT/HCPCS: 71046

== ENCOUNTER → 2018-04-20 10:16 | Outpatient (CLI) | payer MEDICARE, SELFPAY ==
--- NOTE | 2018-04-20 10:20 | XR_ITS ---
XR chest 2V HISTORY: Follow-up pneumonia ITS.REASON: SOB ORDERING PHYSICIAN: Juan Pablo Da Silva MD PATIENT AGE: 73 years COMPARISON: PA and lateral chest 03/31/2018 FINDINGS: The cardiomediastinal silhouette and pulmonary vascularity are within normal limits. Sternal wire sutures and surgical clips are seen from previous CABG. There is been slight and partial resolution of the ill-defined right upper lobe pneumonia, minimal ill-defined opacities remains at the right base and there may be some minimal transbronchial spread to left lower lobe. There Is no pleural fluid. No acute bony abnormalities. IMPRESSION: Slowly resolving right upper lobe pneumonia with minimal bilateral basilar infiltrate remaining
== END ==
PROVIDERS: PCP Internal Medicine Adolescent Medicine; Visit Provider Internal Medicine Adolescent Medicine
DX: R06.02 Shortness of breath (principal)
CPT/HCPCS: 71046

== ENCOUNTER → 2018-05-16 15:30 | Outpatient (CLI) | payer MEDICARE, SELFPAY ==
--- NOTE | 2018-05-16 | NVE_ITS ---
Venous Exam Indications: 729.5 Pain in limb. Eliqus and ASA was stopped in February due to bleeding. IMPRESSIONS Deep vein thrombosis involving the right common femoral vein, right femoral vein, right popliteal vein, right posterior tib, right gastrocnemius, and right soleal Right lower extremity venous duplex evaluation. Doppler flow study including spectral analysis, color and alanis scale imaging. Location: Vascular laboratory. Patient status: Outpatient. CRITICAL FINDINGS - Reported to: Dr. Seymour - Read back and verified. - 05/16/18 - 1600 - + DVT CFV, SFV,POP, PT Tables: Venous flow and imaging: + + + + + Location Overall Flow properties Comments + + + + + Right common Likely Absent; not femoral occluded spontaneous; no augmentation; noncompressible + + + + + Right Likely Compressible saphenofemoral occluded junction + + + + + Right profunda Likely Compressible femoral occluded + + + + + Right femoral Likely Absent; not occluded spontaneous; no augmentation; noncompressible + + + + + Right greater Likely absent Harvested saphenous + + + + + Right popliteal Likely Absent; not occluded spontaneous ; no augmentation; noncompressible + + + + + Right posterior Likely Noncompressible tibial occluded + + + + + Right peroneal Not visualized Not visualized. + + + + + Right gastrocnemius Likely Noncompressible occluded + + + + + Right soleal Likely Noncompressible occluded + + + + + (Report amended ) Electronically signed by: Devonte Salguero [id number]
--- NOTE | 2018-05-16 16:08 | XR_ITS ---
XR chest 2V HISTORY: Shortness of breath ITS.REASON: COMMUNITY ACQUIRED PNEUMONIA ORDERING PHYSICIAN: David Seymour MD PATIENT AGE: 73 years COMPARISON: 04/20/2018 FINDINGS: Prior CABG. Normal heart size.. Right upper lobe consolidation once again noted showing slight continued improvement. Suggest follow-up until clear. Patchy infiltrate in the left upper lobe slightly improved. No effusions. No acute bony anomalies. IMPRESSION: Persistent but improving bilateral upper lobe pneumonia. Suggest follow-up until clear
== END ==
PROVIDERS: PCP Internal Medicine Adolescent Medicine; Visit Provider Internal Medicine Adolescent Medicine
DX: M25.571 Pain in right ankle and joints of right foot (principal); R60.0 Localized edema; J18.9 Pneumonia, unspecified organism
CPT/HCPCS: 71046; 93971

== ENCOUNTER → 2018-09-08 13:49 | Outpatient (CLI) | payer MEDICARE, SELFPAY ==
--- NOTE | 2018-09-08 13:59 | XR_ITS ---
XR chest 2V HISTORY: Cough Follow-up abnormal chest x-ray ITS.REASON: ABN CXR ORDERING PHYSICIAN: Tami Cueva APRN PATIENT AGE: 73 years COMPARISON: 05/16/2018 FINDINGS: Cardiomegaly without failure. Prior CABG. No change in the opacification in the right upper lobe. Patchy infiltrate in the left upper lobe no longer apparent. There are chronic changes in the lung bases. IMPRESSION: Persistent opacification in the right upper lobe which may be due to chronic infiltrate, scarring, or subtle mass. Consider chest CT for further evaluation..
== END ==
PROVIDERS: PCP Internal Medicine Adolescent Medicine; Visit Provider Nurse Practitioner Family
DX: R93.89 Abnormal findings on diagnostic imaging of other specified body structures (principal)
CPT/HCPCS: 71046

== ENCOUNTER 2018-12-27 19:05 | Observation (INO) ==
--- NOTE | 2018-12-27 19:42 | Emergency Department Note ---
ED Disposition Clinical Impression: Near syncope, Sick sinus syndrome Disposition: Admitted as Observation Condition on Discharge: Good Referrals: David Seymour MD [Primary Care Provider] - Time of Disposition: 21:24 - Critical Care Critical Care Time: No Attestation: On 12/27/18, the high probability of a clinically significant, sudden or life threatening deterioration of the following system(s) required my full and direct attention, intervention and personal management. The time I documented below is in addition to time spent performing reported procedures but includes the following listed in this critical care notation. Medical Decision Making - Medical Records Medical records reviewed: Yes: I reviewed the patient's medical records. - Alonso Inquiry Pt receiving controlled substance: No Alonso was queried for this patient: No Vital Signs: 12/27/18 19:16 12/27/18 20:36 Temperature 98.1 F Temperature Source Oral Pulse Rate [Right] 45 L 63 Respiratory Rate 24 18 Blood Pressure [Right Arm] 132/55 L 119/61 Blood Pressure Mean [Right Arm] 80 80 02 Sat by Pulse Oximetry 98 97 Oxygen Delivery Method Room Air - Lab Data Lab results reviewed: Yes: I reviewed the patient's lab results. Lab Results 12/27/18 19:20: WBC 10.4, RBC 4.63, Hgb 14.1, Hct 43.3, MCV 93.6, MCH 30.4, MCHC 32.4, RDW 14.5, Plt Count 263, MPV 7.4, Neut % (Auto) 60.6, Lymph % (Auto) 32.4, Starr % (Auto) 5.1, Eos % (Auto) 1.6, Baso % (Auto) 0.3, Neut # (Auto) 6.3, Lymph # (Auto) 3.4, Starr # (Auto) 0.5, Eos # (Auto) 0.2, Baso # (Auto) 0.0 12/27/18 19:20: Sodium 139, Potassium 4.6, Chloride 102, Carbon Dioxide 23, Anion Gap 18.6 H, BUN 22 H, Creatinine 1.75 H, Estimated Creat Clear 35, Estimated GFR 38 L, Est GFR ( Amer) 46 L, Glucose 218 H, Calcium 9.1, Total Bilirubin 0.3, AST 19, ALT 38, Alkaline Phosphatase 65, Troponin I < 0.02, C-Reactive Protein 0.9, Total Protein 7.2, Albumin 3.4, Globulin 3.8 H, Albumin/Globulin Ratio 0.9 L 12/27/18 19:20: Lactate 4.3 H 12/27/18 19:20: ESR 54 H Result diagrams: 12/27/18 19:20 12/27/18 19:20 Orders (Tests/Meds): ED MEDICATIONS Generic Name Dose Route Start Last Admin Trade Name Freq PRN Reason Stop Dose Admin Sodium Chloride 1,000 mls @ 999 mls/hr 12/27/18 20:30 12/27/18 20:25 Sod Chlor 0.9% 1000ml Bag IV 12/27/18 21:30 999 mls/hr .Q1H1M YORDY Administration Discontinued Medications Generic Name Dose Route Start Last Admin Trade Name Freq PRN Reason Stop Dose Admin Glucagon 1 mg 12/27/18 19:38 12/27/18 19:42 Glucagen 1mg/Ml Vial IV 12/27/18 19:39 1 mg ONCE ONE Administration ORDERS Category Date Time Status Blood Culture Stat Micro 12/27/18 19:20 Received ECG Request by /Gael Stat Y 12/27/18 19:23 Ordered - Physician Consults Physician Consulted: geremias Time: 21:25 Reason -: Admission, Pt condition Additional Consult: mehrdad Time: 21:25 Reason -: Pt condition, Cardiology Eval/Care Comment/Response: will see patient in am General Adult HPI - General Chief complaint: Arrhythmia/Palpitations Stated complaint: SOB,Heart Rate Drop Time Seen by Provider: 12/27/18 19:42 Mode of Arrival: Wheelchair Limitations: No Limitations Description of Symptoms (Recalled from ER Triage Doc. by RN): Pt states this evening when he went to take his b/p medications he took his heart rate and it was 42 on his portable pulse ox. Pt states he has also has been increasingly soa than normally and has had a cough. - Related Data Home Medications Medication Instructions Recorded Confirmed Bisoprolol Fumarate [Bisoprolol 10 mg PO BID 02/26/18 12/27/18 10mg Tablet] Furosemide [Furosemide 40MG tAB] 40 mg PO DAILY 02/26/18 12/27/18 Insulin Aspart [Novolog Flexpen] 0 units SQ ACHS 02/26/18 12/27/18 Lisinopril [Lisinopril 20mg Tab] 20 mg PO DAILY 02/26/18 12/27/18 Metformin HCl [Fortamet] 1,000 mg PO BID 02/26/18 12/27/18 Umeclidinium Brm/Vilanterol Tr 1 each IH DAILY 02/26/18 12/27/18 [Anoro Ellipta 62.5-25 Mcg INH] Montelukast Sodium [Montelukast 10 mg PO DAILY 09/13/18 12/27/18 10mg Tab] Rivaroxaban [Xarelto 20mg Tablet] 20 mg PO DAILY 09/13/18 12/27/18 dilTIAZem HCl [Dilt-Xr] 240 mg PO BID 09/13/18 12/27/18 Allergies Allergy/AdvReac Type Severity Reaction Status Date / Time Clgutnm-Ous-Gql Reductase Allergy Unknown MUSCLE Verified 02/26/18 12:23 Inhibitor WEAKNESS [[id number]-JBZ-FXJ REDUCTASE INHIBITOR] [facility] History - Hepatitis A Screen Drug use history?: No High risk sexual behaviors?: No History of sexually transmitted infection?: No Currently employed?: No Childcare worker?: No Do you have indoor plumbing?: Yes Do you have electricity?: Yes Attestation statement:: This patient has been screened for Hepatitis A risk factors. I have reviewed the patient's past medical history: Yes Medical History: Reports:: Atrial Fibrillation, Coronary Artery Disease, Diabetes Mellitus Type 2, Hyperlipidemia, Hypertension, Myocardial Infarction Denies:: Cancer, Diabetes Mellitus Type 1, MRSA Other Medical History: Reports: Arthritis, Sinus Problems Other Surgeries: Yes: Cardiac Catheterization, Cardiac Surgery, Colonoscopy, Sinus Surgery Amputation: No Fractures: No - Social History Smoking Status: Former smoker Alcohol Intake: never Occupational Status: disabled Housing: house Household Members: none ROS Obtained: Yes All systems reviewed & no additional complaints - Cardiovascular Cardiovascular: Reports diaphoresis, Reports lightheadedness, Reports palpitations - Respiratory Respiratory: Yes chest congestion, Yes cough - Gastrointestinal Gastrointestingal: Denies: abdominal pain - Genitourinary Male Genitourinary: Reports hematuria - Musculoskeletal Musculoskeletal: Denies joint stiffness, Denies joint swelling, Denies limited range of motion - Neurologic Neurologic: Reports weakness, Reports other (near syncope) - Hematologic/Lymphatic Henatologic/Lymphatic: Denies easy bleeding, Denies easy bruising Physical Exam - General General appearance: alert, in no apparent distress - Head Head exam: atraumatic, normocephalic, normal inspection - Eye Eye exam: Present: normal appearance, PERRL, EOMI - ENT ENT exam: Present: normal exam, normal oropharynx, mucous membranes moist, TM's normal bilaterally, normal external ear exam - Neck Neck exam: Present: normal inspection, full ROM, trachea midline. Absent: menin gismus, lymphadenopathy - Chest Chest inspection: Present: normal inspection, symmetric chest wall rise. Absent: tenderness - Respiratory Respiratory exam: Present: normal lung sounds bilaterally. Absent: respiratory distress - Cardiovascular Cardiovascular exam: Present: regular rate, normal rhythm. Absent: JVD - Abdominal Exam Abdominal exam: Present: soft, normal bowel sounds. Absent: distention, tenderness, guarding - Extremities Exam Extremities exam: Present: normal inspection, full ROM, normal capillary refill. Absent: calf tenderness - Back Exam Back exam: Present: normal inspection. Absent: tenderness - Neurological Exam Neurological exam: Present: alert, oriented X3 - Psychiatric Psychiatric exam: Present: normal affect, normal mood - Skin Skin exam: Present: warm, dry, intact, normal color
[2018-12-27 19:51] LABS: Basophils % 0.3 % (0.1-2.0); Eosinophils # 0.2 K/mm3 (0.0-0.4); Eosinophils % 1.6 % (0.1-12.0); Hematocrit 43.3 % (42.0-52.0); Hemoglobin 14.1 g/dL (14.1-18.0); Lymphocytes # 3.4 K/mm3 (0.7-4.5); Lymphocytes % 32.4 % (10-50); Mean Corpuscular HGB Conc 32.4 g/dL (31.8-35.4); Mean Corpuscular Volume 93.6 fl (80-94); Mean Platelet Volume 7.4 fl (7.4-10.4); Monocytes # 0.5 K/mm3 (0.1-1.0); Monocytes % 5.1 % (1.7-9.3); Neutrophils # 6.3 K/mm3 (1.8-7.8); Neutrophils % 60.6 % (37.0-80.0); Platelet Count 263 K/mm3 (142-424); Red Blood Count 4.63 M/mm3 (4.60-6.20); Red Cell Distribution Width 14.5 % (11.5-17.5); White Blood Count 10.4 K/mm3 (4.8-10.8)
[2018-12-27 20:08] LABS: Alanine Aminotransferase 38 U/L (12-78); Albumin Level 3.4 gm/dL (3.4-5.0); Albumin/Globulin Ratio 0.9 (1.1-1.8); Alkaline Phosphatase 65 U/L (46-116); Anion Gap 18.6 mEq/L (5-15); Aspartate Amino Transferase 19 U/L (15-37); Bilirubin,Total 0.3 mg/dL (0.2-1.0); Blood Urea Nitrogen 22 mg/dL (7-18); C-Reactive Protein 0.9 mg/dL (0.0-0.9); Calcium 9.1 mg/dL (8.5-10.1); Carbon Dioxide 23 mmol/L (21.0-32.0); Chloride 102 mmol/L (98-107); Globulin 3.8 gm/dl (1.3-3.2); Glucose 218 mg/dL (74-106); Sodium 139 mmol/L (136-145); Total Protein,Serum 7.2 gm/dL (6.4-8.2)
[2018-12-28 04:38] LABS: Anion Gap 15.9 mEq/L (5-15); Basophils % 0.3 % (0.1-2.0); Calcium 8.9 mg/dL (8.5-10.1); Eosinophils # 0.2 K/mm3 (0.0-0.4); Eosinophils % 1.9 % (0.1-12.0); Hematocrit 43.3 % (42.0-52.0); Hemoglobin 14.1 g/dL (14.1-18.0); Lymphocytes # 3.1 K/mm3 (0.7-4.5); Lymphocytes % 31.6 % (10-50); Mean Corpuscular HGB Conc 32.5 g/dL (31.8-35.4); Mean Corpuscular Volume 92.7 fl (80-94); Mean Platelet Volume 7.5 fl (7.4-10.4); Monocytes # 0.6 K/mm3 (0.1-1.0); Monocytes % 5.9 % (1.7-9.3); Neutrophils # 5.9 K/mm3 (1.8-7.8); Neutrophils % 60.3 % (37.0-80.0); Platelet Count 246 K/mm3 (142-424); Red Blood Count 4.67 M/mm3 (4.60-6.20); Red Cell Distribution Width 14.3 % (11.5-17.5); White Blood Count 9.8 K/mm3 (4.8-10.8)
--- NOTE | 2018-12-28 07:38 | Pharmacy Consult Notes ---
[facility] Pharmacy VTE Monitoring - Patient Demographics Admission date: 12/27/18 Report Date: 12/28/18 Time: 07:38 Allergies/Adverse Reactions: Patient Allergies Erospbp-Ldh-Jde Reductase Inhibitor [ZTMTEOZ-PAT-HWD REDUCTASE INHIBITOR] Allergy (Unknown, Verified 02/26/18 12:23) MUSCLE WEAKNESS Height: 1.73 m Weight: 127.063 kg Patient Problems: Current Active Problems Near syncope (Acute) Sick sinus syndrome (Acute) - VTE Risk Labs: VTE Related Lab Results Hgb 14.1 g/dL (14.1-18.0) 12/28/18 03:50 Hct 43.3 % (42.0-52.0) 12/28/18 03:50 Plt Count 246 K/mm3 (142-424) 12/28/18 03:50 BUN 19 mg/dL (7-18) H 12/28/18 03:50 Creatinine 1.12 mg/dL (0.70-1.30) D 12/28/18 03:50 Estimated Creat Clear 55 mL/min (50-200) 12/28/18 03:50 Was VTE Risk Assessment Performed: Yes VTE Score: 6 VTE Risk Level: Moderate Risk - Prophylaxis VTE Prophylaxis Ordered?: Yes Types of VTE Prophylaxis: Pharmacological Pharmacologic Type: Other (XARELTO) - VTE Diagnosis Confirmed Treatment or plan recommended: Continue Current Treatment
--- NOTE | 2018-12-28 07:49 | History & Physical Report ---
*Admission Date: 12/27/18 *Chief complaint: Bradycardia, shortness of breath *History of present illness: Kevon is a pleasant 73-year-old male with history of CABG, CAD, obesity, chronic sinusitis, hearing impairment who presents with symptomatic bradycardia. Patient states that his heart rate yesterday was in the 40s and he was feeling short of breath. He did not take his nighttime medications which include bisoprolol 5 mg and diltiazem 240 mg extended release. He is on an aggressive regimen of calcium channel blockade and beta-blockade consisting of bisoprolol 5 twice daily and diltiazem XR 240 mg twice daily. He states his heart rate usually does pretty well and is in the 60s but had noticed worsening symptoms over the past 24 hours. It concerned him and so he came to the emergency room. Denies mikey syncope, nausea or vomiting, chest pain. Does complain of some worsening lower extremity edema. Was recently diagnosed with a recurrent blood clot in his right lower extremity and restarted on blood thinners. Patient otherwise at baseline. Admitted to medicine for further management Overnight received IV fluids with aggressive rehydration due to an BALDO on admission. Labs show improvement in kidney function this morning. Of note patient did not wear his CPAP last night while admitted. Otherwise states today he is feeling better, heart rate improved with holding of medications [facility] History I have reviewed the patient's past medical history: Yes Medical History: Reports:: Atrial Fibrillation, Coronary Artery Disease, Diabetes Mellitus Type 2, Hyperlipidemia, Hypertension, Myocardial Infarction Denies:: Cancer, Diabetes Mellitus Type 1, MRSA *Have you ever received a pneumonia vaccine?: Yes *Have you received a flu vaccine this season?: No Other Medical History: Reports: Arthritis, Sinus Problems Other Surgeries: Yes: Cardiac Catheterization, Cardiac Surgery, Colonoscopy, Coronary Stent, Open Heart Surgery, Sinus Surgery Amputation: No Fractures: No - *Social History Educational Level: Attended High School Smoking Status: Former smoker Tobacco Type: cigarettes # Packs/Day (cigarettes): 2 #Yrs smoked (if former smoker): 15 Alcohol Intake: never *Occupational Status:: retired, disabled Housing: house Household Members: none *Travel in the last 8 weeks: None Family Hx:: Coronary Artery Disease, Diabetes Review of Systems - Review of Systems Review of systems:: pertinent systems reviewed and negative unless documented below - *Neurologic Reports weakness, Reports other (near syncope) Meds Home Medications Medication Instructions Recorded Confirmed Type Bisoprolol Fumarate [Bisoprolol 10 mg PO BID 02/26/18 12/28/18 History 10mg Tablet] Furosemide [Furosemide 40MG tAB] 40 mg PO DAILY 02/26/18 12/28/18 History Insulin Aspart [Novolog Flexpen] 0 units SQ ACHS 02/26/18 12/28/18 History Lisinopril [Lisinopril 20mg Tab] 20 mg PO DAILY 02/26/18 12/28/18 History Metformin HCl [Fortamet] 1,000 mg PO BID 02/26/18 12/28/18 History Umeclidinium Brm/Vilanterol Tr 1 each IH DAILY 02/26/18 12/27/18 History [Anoro Ellipta 62.5-25 Mcg INH] Montelukast Sodium [Montelukast 10 mg PO DAILY 09/13/18 12/28/18 History 10mg Tab] Rivaroxaban [Xarelto 20mg Tablet] 20 mg PO DAILY 09/13/18 12/28/18 History dilTIAZem HCl [Dilt-Xr] 240 mg PO BID 09/13/18 12/28/18 History Allergies Allergy/AdvReac Type Severity Reaction Status Date / Time Htrwuci-Voj-Gpu Reductase Allergy Unknown MUSCLE Verified 02/26/18 12:23 Inhibitor WEAKNESS [MVSEBRZ-OXD-UXO REDUCTASE INHIBITOR] Exam Vital signs and Labs for Last 24 Hours: Temp Pulse Resp BP Pulse Ox 97.7 F 62 20 126/61 96 12/28/18 04:00 12/28/18 04:00 12/28/18 04:00 12/28/18 04:00 12/28/18 04:00 Laboratory Results - last 24 hr 12/27/18 19:20: WBC 10.4, RBC 4.63, Hgb 14.1, Hct 43.3, MCV 93.6, MCH 30.4, MCHC 32.4, RDW 14.5, Plt Count 263, MPV 7.4, Neut % (Auto) 60.6, Lymph % (Auto) 32.4, Riley % (Auto) 5.1, Eos % (Auto) 1.6, Baso % (Auto) 0.3, Neut # (Auto) 6.3, Lymph # (Auto) 3.4, Riley # (Auto) 0.5, Eos # (Auto) 0.2, Baso # (Auto) 0.0 12/27/18 19:20: Sodium 139, Potassium 4.6, Chloride 102, Carbon Dioxide 23, Anion Gap 18.6 H, BUN 22 H, Creatinine 1.75 H, Estimated Creat Clear 35, Brit mated GFR 38 L, Est GFR ( Amer) 46 L, Glucose 218 H, Calcium 9.1, Total Bilirubin 0.3, AST 19, ALT 38, Alkaline Phosphatase 65, Troponin I < 0.02, C- Reactive Protein 0.9, Total Protein 7.2, Albumin 3.4, Globulin 3.8 H, Albumin/Globulin Ratio 0.9 L 12/27/18 19:20: Lactate 4.3 H 12/27/18 19:20: ESR 54 H 12/27/18 23:30: Lactate 2.7 H 12/28/18 01:10: Troponin I < 0.02 12/28/18 01:10: Lactate 2.4 H 12/28/18 03:50: Troponin I < 0.02 12/28/18 03:50: WBC 9.8, RBC 4.67, Hgb 14.1, Hct 43.3, MCV 92.7, MCH 30.2, MCHC 32.5, RDW 14.3, Plt Count 246, MPV 7.5, Neut % (Auto) 60.3, Lymph % (Auto) 31.6, Riley % (Auto) 5.9, Eos % (Auto) 1.9, Baso % (Auto) 0.3, Neut # (Auto) 5.9, Lymph # (Auto) 3.1, Riley # (Auto) 0.6, Eos # (Auto) 0.2, Baso # (Auto) 0.0 12/28/18 03:50: Sodium 140, Potassium 3.9, Chloride 104, Carbon Dioxide 24, Anion Gap 15.9 H, BUN 19 H, Creatinine 1.12 D, Estimated Creat Clear 55, Estimated GFR 64, Est GFR ( Amer) 77 D, Glucose 81 D, Calcium 8.9 12/28/18 06:36: POC Glucose 157 H I & O for Last 24 hours: Intake & Output 12/25/18 12/26/18 12/27/18 12/28/18 23:59 23:59 23:59 23:59 Intake Total 1000 / 1000 1401 / 1401 Output Total 1600 / 1600 Balance 1000 / 1000 -199 / -199 Weight 127.148 kg 127.063 kg - Constitutional no acute distress, morbidly obese - *Routine HEENT Exam Head: Present: normocephalic, atraumatic Eye: Present: EOMI, PERRL ENT: Present: mucous membranes moist Comments: Hearing aids bilaterally, nasally voice due to chronic sinusitis - *Routine Neck Exam Present: supple. Absent: JVD - *Routine Respiratory Exam Present: CTA bilaterally. Absent: prolonged expiratory phase, crackles - *Routine Cardiovascular Exam Present: RRR, bradycardia. Absent: murmur - *Routine Abdominal Exam Present: soft, normoactive bowel sounds Comments: Protuberant - *Routine Rectal Exam Patient deferred: visual exam - *Routine Exam Patient deferred: penile exam - *Routine Extremities Exam Present: edema (2+ bilaterally to knees). Absent: cyanosis, clubbing - *Routine Skin Exam Present: intact, pallor. Absent: cyanosis, erythema Comments: Scabs right lower leg on scar from saphenous vein harvest. 2 cm blister right anterior jovel clear fluid-filled - *Routine Neurological Exam Present: alert, oriented X3. Absent: altered mental status Assessment and Plan (1) BALDO (acute kidney injury) Current visit: Yes Status: Acute Category: Medical Code(s): N17.9 - Acute kidney failure, unspecified Improved after fluid resuscitation. (2) Sick sinus syndrome Current visit: Yes Status: Acute Category: Medical Code(s): I49.5 - Sick sinus syndrome Currently on 240 mg diltiazem extended release twice daily and bisoprolol 5 mg twice daily. Suspect bradycardia related to medication over administration. Patient has been on this regimen to some degree for greater than 6 months. Consult cardiology. Potential for pacemaker however heart rate better with holding medications. (3) A-fib Current visit: No Status: Chronic Qualifiers: Atrial fibrillation type: chronic Qualified Code(s): I48.2 - Chronic atrial fibrillation Category: Medical Code(s): I48.91 - Unspecified atrial fibrillation Intended to monitor heart rate. Holding jaleesa blockade medications at this time. Continue anticoagulation. (4) Class 3 severe obesity due to excess calories in adult Current visit: No Status: Chronic Qualifiers: Serious obesity comorbidity presence: with serious comorbidity Body mass index: BMI 40.0-44.9 Qualified Code(s): E66.01 - Morbid (severe) obesity due to excess calories; Z68.41 - Body mass index (BMI) 40.0-44.9, adult Category: Medical Code(s): E66.01 - Morbid (severe) obesity due to excess calories Complicates all aspects of his care (5) Heart failure with reduced ejection fraction, NYHA class II Current visit: No Status: Chronic Category: Medical Code(s): I50.20 - Unspecified systolic (congestive) heart failure (6) Obstructive sleep apnea Current visit: No Status: Chronic Category: Medical Code(s): G47.33 - Obstructive sleep apnea (adult) (pediatric) Resume CPAP - Assessment and plan all Dx Assessment and Plan for all problems:: 73-year-old with symptom medic bradycardia. Suspect medication overdose blocking jaleesa transmission. Pending cardiology consult. Patient continues to require inpatient management at this time.
--- NOTE | 2018-12-28 10:22 | Consult Report ---
History of Present Illness Consult date: 12/28/18 Requesting physician: David Seymour Consult reason: shortness of breath Chief complaint: Shortness of breath Additional Medical History:: 1. Coronary artery disease 2. Atrial fibrillation 3. Diabetes mellitus 4. Hypertension 5. Hyperlipidemia 6. Myocardial infarction History of present illness: Mr. jennifer Mistry is a 73-year-old white male who presented to the emergency department with complaints of shortness of breath and bradycardia. He does have a known history of coronary artery disease with CABG, atrial fibrillation, obesity, diabetes, hypertension and hyperlipidemia. The patient states that for about approximately 24 hours prior to his arrival to the emergency department he had not felt well. The patient reports that he was bradycardic with a heart rate around 41. He states when his heart rate dropped he got profoundly short of breath. He denies any dizziness, weakness or syncope. He states that he is always somewhat fatigued and this did not worsen. The patient states that when his heart rate was in the 40s he was profoundly short of breath. This is worse with exertion. Nothing was really helping to improve his shortness of breath. The patient states that he did not take his nighttime dose of bisoprolol or diltiazem because of the bradycardia. It did not improve and decided to come into the emergency department. He denies any chest pain or pressure. He denies any syncope. He denies any fever, chills, nausea, vomiting, diarrhea, PND or orthopnea. The patient was recently diagnosed with a recurrent blood clot in his right lower extremity and was restarted on blood thinners. The patient was also found to have an acute kidney injury for which he has been getting fluids. This morning the patient states that he does feel much better. His heart rate is now in the 80s after stopping his bisoprolol and diltiazem. [facility] History I have reviewed the patient's past medical history: Yes Medical History: Reports:: Atrial Fibrillation, Coronary Artery Disease, Diabetes Mellitus Type 2, Hyperlipidemia, Hypertension, Myocardial Infarction Denies:: Cancer, Diabetes Mellitus Type 1, MRSA *Have you ever received a pneumonia vaccine?: Yes *Have you received a flu vaccine this season?: No Other Medical History: Reports: Arthritis, Sinus Problems Other Surgeries: Yes: Cardiac Catheterization, Cardiac Surgery, Colonoscopy, Coronary Stent, Open Heart Surgery, Sinus Surgery Amputation: No Fractures: No - *Social History Educational Level: Attended High School Smoking Status: Former smoker Tobacco Type: cigarettes # Packs/Day (cigarettes): 2 #Yrs smoked (if former smoker): 15 Alcohol Intake: never *Occupational Status:: retired, disabled Housing: house Household Members: none *Travel in the last 8 weeks: None Family Hx:: Coronary Artery Disease, Diabetes Meds Home Medications Medication Instructions Recorded Confirmed Type Furosemide [Furosemide 40MG tAB] 20 mg PO DAILY 02/26/18 12/28/18 History Insulin Aspart [Novolog Flexpen] 0 units SQ ACHS 02/26/18 12/28/18 History Lisinopril [Lisinopril 20mg Tab] 20 mg PO DAILY 02/26/18 12/28/18 History Metformin HCl [Fortamet] 1,000 mg PO BID 02/26/18 12/28/18 History Umeclidinium Brm/Vilanterol Tr 1 each IH DAILY 02/26/18 12/27/18 History [Anoro Ellipta 62.5-25 Mcg INH] Montelukast Sodium [Montelukast 10 mg PO DAILY 09/13/18 12/28/18 History 10mg Tab] Rivaroxaban [Xarelto 20mg Tablet] 20 mg PO DAILY 09/13/18 12/28/18 History dilTIAZem HCl [Dilt-Xr] 240 mg PO BID 09/13/18 12/28/18 History Bisoprolol Fumarate [Bisoprolol 5 mg PO BID 12/28/18 12/28/18 History 5mg Tablet] Allergies Allergy/AdvReac Type Severity Reaction Status Date / Time Kvfaleq-Qve-Mua Reductase Allergy Unknown MUSCLE Verified 02/26/18 12:23 Inhibitor WEAKNESS [[id number] REDUCTASE INHIBITOR] Review of Systems - Review of Systems Review of systems:: pertinent systems reviewed and negative unless documented below - Constitutional Reports lack of energy, Reports weakness - *Respiratory Reports shortness of breath, Reports shortness of breath with activity - *Neurologic Reports weakness Exam Vital signs and Labs for Last 24 Hours: Temp Pulse Resp BP Pulse Ox 98.2 F 69 17 154/76 H 96 12/28/18 08:00 12/28/18 08:00 12/28/18 08:00 12/28/18 08:00 12/28/18 04:00 Laboratory Results - last 24 hr 12/27/18 19:20: WBC 10.4, RBC 4.63, Hgb 14.1, Hct 43.3, MCV 93.6, MCH 30.4, MCHC 32.4, RDW 14.5, Plt Count 263, MPV 7.4, Neut % (Auto) 60.6, Lymph % (Auto) 32.4, [place] % (Auto) 5.1, Eos % (Auto) 1.6, Baso % (Auto) 0.3, Neut # (Auto) 6.3, Lymph # (Auto) 3.4, [place] # (Auto) 0.5, Eos # (Auto) 0.2, Baso # (Auto) 0.0 12/27/18 19:20: Sodium 139, Potassium 4.6, Chloride 102, Carbon Dioxide 23, Anion Gap 18.6 H, BUN 22 H, Creatinine 1.75 H, Estimated Creat Clear 35, Estimated GFR 38 L, Est GFR ( Amer) 46 L, Glucose 218 H, Calcium 9.1, Total Bilirubin 0.3, AST 19, ALT 38, Alkaline Phosphatase 65, Troponin I < 0.02, C-Reactive Protein 0.9, Total Protein 7.2, Albumin 3.4, Globulin 3.8 H, Albumin/Globulin Ratio 0.9 L 12/27/18 19:20: Lactate 4.3 H 12/27/18 19:20: ESR 54 H 12/27/18 23:30: Lactate 2.7 H 12/28/18 01:10: Troponin I < 0.02 12/28/18 01:10: Lactate 2.4 H 12/28/18 03:50: Troponin I < 0.02 12/28/18 03:50: WBC 9.8, RBC 4.67, Hgb 14.1, Hct 43.3, MCV 92.7, MCH 30.2, MCHC 32.5, RDW 14.3, Plt Count 246, MPV 7.5, Neut % (Auto) 60.3, Lymph % (Auto) 31.6, [place] % (Auto) 5.9, Eos % (Auto) 1.9, Baso % (Auto) 0.3, Neut # (Auto) 5.9, Lymph # (Auto) 3.1, [place] # (Auto) 0.6, Eos # (Auto) 0.2, Baso # (Auto) 0.0 12/28/18 03:50: Sodium 140, Potassium 3.9, Chloride 104, Carbon Dioxide 24, Anion Gap 15.9 H, BUN 19 H, Creatinine 1.12 D, Estimated Creat Clear 55, Estimated GFR 64, Est GFR ( Amer) 77 D, Glucose 81 D, Calcium 8.9 12/28/18 06:36: POC Glucose 157 H I & O for Last 24 hours: Intake & Output 12/25/18 12/26/18 12/27/18 12/28/18 23:59 23:59 23:59 23:59 Intake Total 1000 / 1000 1401 / 1401 Output Total 1600 / 1600 Balance 1000 / 1000 -199 / -199 Weight 280 lb 5 oz 280 lb 2 oz Narrative: His EKG is atrial fibrillation with a rate of 57 and right bundle branch block. - Constitutional no acute distress, obese - *Routine HEENT Exam Head: Present: normocephalic, atraumatic Eye: Present: EOMI, PERRL ENT: Present: mucous membranes moist - *Routine Neck Exam Present: supple, full ROM, normal carotid upstroke. Absent: JVD, carotid bruit, lymphadenopathy - *Routine Respiratory Exam Present: CTA bilaterally - *Routine Cardiovascular Exam Present: Normal S1, Normal S2, irregularly irregular - *Routine Abdominal Exam Present: soft, normoactive bowel sounds. Absent: tenderness, distended - *Routine Extremities Exam Present: full ROM, pulses intact, normal capillary refill. Absent: cyanosis, clubbing, edema - *Routine Skin Exam Present: intact, warm. Absent: erythema, rash - *Routine Neurological Exam Present: alert, oriented X3, CN II-XII intact. Absent: sensory deficit, motor deficit - Routine Psychiatric Exam Present: normal affect, normal thought process - Detailed Eye Exam Eyelids: Left normal inspection Assessment and Plan (1) Symptomatic bradycardia Current visit: Yes Status: Acute Category: Medical Code(s): R00.1 - Bradycardia, unspecified (2) A-fib Current visit: No Status: Chronic Qualifiers: Atrial fibrillation type: chronic Qualified Code(s): I48.2 - Chronic atrial fibrillation Category: Medical Code(s): I48.91 - Unspecified atrial fibrillation (3) BALDO (acute kidney injury) Current visit: Yes Status: Acute Category: Medical Code(s): N17.9 - Acute kidney failure, unspecified (4) Class 3 severe obesity due to excess calories in adult Current visit: No Status: Chronic Qualifiers: Serious obesity comorbidity presence: with serious comorbidity Body mass index: BMI 40.0-44.9 Qualified Code(s): E66.01 - Morbid (severe) obesity due to excess calories; Z68.41 - Body mass index (BMI) 40.0-44.9, adult Category: Medical Code(s): E66.01 - Morbid (severe) obesity due to excess calories (5) Heart failure with reduced ejection fraction, NYHA class II Current visit: No Status: Chronic Category: Medical Code(s): I50.20 - Unspecified systolic (congestive) heart failure (6) Obstructive sleep apnea Current visit: No Status: Chronic Category: Medical Code(s): G47.33 - Obstructive sleep apnea (adult) (pediatric) (7) Coronary artery disease Current visit: Yes Status: Chronic Category: Medical Code(s): I25.10 - Atherosclerotic heart disease of [place] coronary artery without angina pectoris (8) Hypertension Current visit: Yes Status: Chronic Category: Medical Code(s): I10 - Essential (primary) hypertension (9) Hyperlipidemia Current visit: Yes Status: Chronic Category: Medical Code(s): E78.5 - Hyperlipidemia, unspecified (10) Diabetes Current visit: Yes Status: Chronic Category: Medical Code(s): E11.9 - Type 2 diabetes mellitus without complications - Assessment and plan all Dx Assessment and Plan for all problems:: Plan: 1. The patient was admitted to the hospital with shortness of breath and bradycardia. He states that he has been bradycardic for about 24 hours prior to admission. He states that when he became bradycardic with a heart rate around 41 bpm he became profoundly short of breath. The patient states that he held his nighttime dose of bisoprolol and diltiazem because of the bradycardia. He states that he was still really short of breath so he decided to come into the emergency department. Once here at the emergency department his heart rate was in the 50s. His diltiazem and bisoprolol have continued to be on hold. This morning his heart rate is around 83 and the patient remains in atrial fibrillation. 2. The patient was having symptomatic bradycardia. He was likely receiving too much of his beta-araseli and calcium channel araseli. These medications have been stopped and now his heart rate is back up to 83. Given his underlying atrial fibrillation he needs to be on some antiarrhythmic medication to prevent him going into atrial fibrillation with RVR. We will continue to hold his beta- araseli at this time. We will restart him on a lower dose of diltiazem CD at 180 mg once a day for her fibrillation. 3. He is on anticoagulation with Xarelto 20 mg daily. 4. The patient does have a history of coronary artery disease. He denies any chest pain or chest pressure. 5. His echocardiogram is currently pending. 6. His blood pressure is elevated this morning. The addition of the diltiazem will help to improve his blood pressure as well. 7. His LDL goal is less than 55. 8. He does have a history of diabetes. He does need aggressive control of his diabetes. Will defer management of this to his primary care provider. 9. No further recognitions at this time from a cardiovascular standpoint. As mentioned above we will restart the patient on a lower dose of diltiazem CD at 180 mg once daily. Patient can be discharged home from a cardiovascular standpoint whenever his primary care provider feels it is acceptable to discharge the patient. He does need to follow-up in 1 to 2 weeks on an outpatient basis. Thank you for the opportunity to help participate in the care of this patient.
--- NOTE | 2018-12-28 13:38 | Discharge Summary ---
General - General Admission date:: 12/27/18 Discharge date: 12/28/18 [facility] HPI: Kevon is a pleasant 73-year-old male with history of CABG, CAD, obesity, chronic sinusitis, hearing impairment who presents with symptomatic bradycardia. Patient states that his heart rate yesterday was in the 40s and he was feeling short of breath. He did not take his nighttime medications which include bisoprolol 5 mg and diltiazem 240 mg extended release. He is on an aggressive regimen of calcium channel blockade and beta-blockade consisting of bisoprolol 5 twice daily and diltiazem XR 240 mg twice daily. He states his heart rate usually does pretty well and is in the 60s but had noticed worsening symptoms over the past 24 hours. It concerned him and so he came to the emergency room. Denies mikey syncope, nausea or vomiting, chest pain. Does complain of some worsening lower extremity edema. Was recently diagnosed with a recurrent blood clot in his right lower extremity and restarted on blood thinners. Patient otherwise at baseline. Admitted to medicine for further management Overnight received IV fluids with aggressive rehydration due to an BALDO on admission. Labs show improvement in kidney function this morning. Of note patient did not wear his CPAP last night while admitted. Otherwise states today he is feeling better, heart rate improved with holding of medications Hospital Course Hospital Course: Admitted for symptom medic bradycardia and BALDO. Kidney injury resolved with fluid resuscitation. Patient's beta blockers and calcium channel blockers were held with improvement in his heart rate. Blood pressure was more elevated morning after admission so a lower dose of calcium channel araseli was restarted after cardiology consult. From cardiology standpoint, felt patient was over blocked and recommended only calcium channel araseli at this time at lower dose. Patient asymptomatic and feeling back to baseline. Medically stable for discharge home. Plan to have close follow-up next week. Counseled to call us over the weekend as I am clinical documentation specialist if he has tachyarrhythmias so we can make adjustments prior to follow-up next week. Patient stated understanding. Objective Vital signs: Temp Pulse Resp BP Pulse Ox 98.0 F 76 19 151/85 H 96 12/28/18 12:00 12/28/18 12:00 12/28/18 12:00 12/28/18 12:00 12/28/18 12:00 Narrative: See physical exam from [facility] as it was performed today Results Labs on day of discharge: Labs from last 24 hours 12/28/18 12/28/18 12/28/18 10:55 06:36 03:50 WBC RBC Hgb Hct MCV MCH MCHC RDW Plt Count MPV Neut % (Auto) Lymph % (Auto) [place] % (Auto) Eos % (Auto) Baso % (Auto) Neut # (Auto) Lymph # (Auto) [place] # (Auto) Eos # (Auto) Baso # (Auto) ESR Sodium 140 Potassium 3.9 Chloride 104 Carbon Dioxide 24 Anion Gap 15.9 H BUN 19 H Creatinine 1.12 D Estimated Creat Clear 55 Estimated GFR 64 Est GFR ( Amer) 77 D Glucose 81 D POC Glucose 213 H 157 H Lactate Calcium 8.9 Total Bilirubin AST ALT Alkaline Phosphatase Troponin I C-Reactive Protein Total Protein Albumin Globulin Albumin/Globulin Ratio 12/28/18 12/28/18 12/28/18 03:50 03:50 01:10 WBC 9.8 RBC 4.67 Hgb 14.1 Hct 43.3 MCV 92.7 MCH 30.2 MCHC 32.5 RDW 14.3 Plt Count 246 MPV 7.5 Neut % (Auto) 60.3 Lymph % (Auto) 31.6 [place] % (Auto) 5.9 Eos % (Auto) 1.9 Baso % (Auto) 0.3 Neut # (Auto) 5.9 Lymph # (Auto) 3.1 [place] # (Auto) 0.6 Eos # (Auto) 0.2 Baso # (Auto) 0.0 ESR Sodium Potassium Chloride Carbon Dioxide Anion Gap BUN Creatinine Estimated Creat Clear Estimated GFR Est GFR ( Amer) Glucose POC Glucose Lactate 2.4 H Calcium Total Bilirubin AST ALT Alkaline Phosphatase Troponin I < 0.02 C-Reactive Protein Total Protein Albumin Globulin Albumin/Globulin Ratio 12/28/18 12/27/18 12/27/18 01:10 23:30 19:20 WBC RBC Hgb Hct MCV MCH MCHC RDW Plt Count MPV Neut % (Auto) Lymph % (Auto) [place] % (Auto) Eos % (Auto) Baso % (Auto) Neut # (Auto) Lymph # (Auto) [place] # (Auto) Eos # (Auto) Baso # (Auto) ESR 54 H Sodium Potassium Chloride Carbon Dioxide Anion Gap BUN Creatinine Estimated Creat Clear Estimated GFR Est GFR ( Amer) Glucose POC Glucose Lactate 2.7 H Calcium Total Bilirubin AST ALT Alkaline Phosphatase Troponin I < 0.02 C-Reactive Protein Total Protein Albumin Globulin Albumin/Globulin Ratio 12/27/18 12/27/18 12/27/18 19:20 19:20 19:20 WBC 10.4 RBC 4.63 Hgb 14.1 Hct 43.3 MCV 93.6 MCH 30.4 MCHC 32.4 RDW 14.5 Plt Count 263 MPV 7.4 Neut % (Auto) 60.6 Lymph % (Auto) 32.4 [place] % (Auto) 5.1 Eos % (Auto) 1.6 Baso % (Auto) 0.3 Neut # (Auto) 6.3 Lymph # (Auto) 3.4 [place] # (Auto) 0.5 Eos # (Auto) 0.2 Baso # (Auto) 0.0 ESR Sodium 139 Potassium 4.6 Chloride 102 Carbon Dioxide 23 Anion Gap 18.6 H BUN 22 H Creatinine 1.75 H Estimated Creat Clear 35 Estimated GFR 38 L Est GFR ( Amer) 46 L Glucose 218 H POC Glucose Lactate 4.3 H Calcium 9.1 Total Bilirubin 0.3 AST 19 ALT 38 Alkaline Phosphatase 65 Troponin I < 0.02 C-Reactive Protein 0.9 Total Protein 7.2 Albumin 3.4 Globulin 3.8 H Albumin/Globulin Ratio 0.9 L DS: Diagnosis - Discharge Diagnosis (1) Symptomatic bradycardia Status: Resolved (2) A-fib Status: Chronic (3) BALDO (acute kidney injury) Status: Resolved (4) Class 3 severe obesity due to excess calories in adult Status: Chronic (5) Heart failure with reduced ejection fraction, NYHA class II Status: Chronic (6) Obstructive sleep apnea Status: Chronic (7) Coronary artery disease Status: Chronic (8) Hypertension Status: Chronic (9) Hyperlipidemia Status: Chronic (10) Diabetes Status: Chronic Discharge Plan - Patient Discharge Instructions ACTIVITY: Continue current activity DIET: continue same diet Patient Instructions: DI for Syncope in Adults (Fainting), Fainting, Sick Sinus Syndrome, DI for Sick Sinus Syndrome - Follow up Plan Follow up with: David Seymour MD [Primary Care Provider] - Disposition: Home, Self-Prison Medications: Home Medications Medication Instructions Recorded Confirmed Type Furosemide [Furosemide 40MG tAB] 20 mg PO DAILY 02/26/18 12/28/18 History Insulin Aspart [Novolog Flexpen] 0 units SQ ACHS 02/26/18 12/28/18 History Lisinopril [Lisinopril 20mg Tab] 20 mg PO DAILY 02/26/18 12/28/18 History Metformin HCl [Fortamet] 1,000 mg PO BID 02/26/18 12/28/18 History Umeclidinium Brm/Vilanterol Tr 1 each IH DAILY 02/26/18 12/27/18 History [Anoro Ellipta 62.5-25 Mcg INH] Montelukast Sodium [Montelukast 10 mg PO DAILY 09/13/18 12/28/18 History 10mg Tab] Rivaroxaban [Xarelto 20mg Tablet] 20 mg PO DAILY 09/13/18 12/28/18 History dilTIAZem HCl [Dilt-Xr] 240 mg PO BID 09/13/18 12/28/18 History Bisoprolol Fumarate [Bisoprolol 5 mg PO BID 12/28/18 12/28/18 History 5mg Tablet] dilTIAZem HCl [Cardizem 180mg ER 180 mg PO DAILY 30 Days #30 12/28/18 Rx Cap] capsule.er Prescriptions/Medication Reconciliation: New dilTIAZem HCl [Cardizem 180mg ER Cap] 180 mg PO DAILY 30 Days #30 capsule.er Continued Umeclidinium Brm/Vilanterol Tr [Anoro Ellipta 62.5-25 Mcg INH] 1 each IH DAILY Lisinopril [Lisinopril 20mg Tab] 20 mg PO DAILY Furosemide [Furosemide 40MG tAB] 20 mg PO DAILY Metformin HCl [Fortamet] 1,000 mg PO BID Montelukast Sodium [Montelukast 10mg Tab] 10 mg PO DAILY Insulin Aspart [Novolog Flexpen] 0 units SQ ACHS Rivaroxaban [Xarelto 20mg Tablet] 20 mg PO DAILY Discontinued dilTIAZem HCl [Dilt-Xr] 240 mg PO BID Bisoprolol Fumarate [Bisoprolol 5mg Tablet] 5 mg PO BID - Problem Reconciliation Problems Reviewed?: Yes
--- NOTE | 2018-12-28 18:06 | Electrocardiograph Report ---
APPROVED REPORT Exam: Resting ECG HR:57 bpm ECG Measurements Heart Rate 57 AXES QRSd 148 QRS 102 QT 480 T78 QTc 467 <Conclusion> Atrial fibrillation with slow ventricular response Right bundle branch block Abnormal ECG Electronically signed by : Vimal Gamboa, 12/28/2018 18:06:17
== END 2018-12-28 14:25 | disposition home or self-care (01) ==
LOC: 2ND 19:05 → ER 19:05 → 2ND 22:39
PROVIDERS: ADMIT Emergency Medicine; ATTEND Internal Medicine Adolescent Medicine
CPT/HCPCS: 36415; 71020; 71046; 80048; 80053; 82962; 83605; 84484; 85025; 85651; 86140; 87040; 93005; 96365; 96375; 99284; G0378; J1610

== ENCOUNTER 2019-04-11 09:31 | Observation (INO) ==
--- NOTE | 2019-04-11 09:40 | Emergency Department Note ---
ED Disposition Clinical Impression: Dehydration GI bleed Qualifiers: GI bleed type/associated pathology: unspecified gastrointestinal hemorrhage type Qualified Code(s): K92.2 - Gastrointestinal hemorrhage, unspecified Disposition: Admitted As Inpatient Condition on Discharge: Fair - Critical Care Critical Care Time: No Attestation: On , the high probability of a clinically significant, sudden or life threatening deterioration of the following system(s) required my full and direct attention, intervention and personal management. The time I documented below is in addition to time spent performing reported procedures but includes the following listed in this critical care notation. Medical Decision Making - Medical Records Medical records reviewed: Yes: I reviewed the patient's medical records. - Alonso Inquiry Pt receiving controlled substance: No Vital Signs: 04/11/19 09:38 Temperature 98.6 F Temperature Source Oral Pulse Rate [Right Brachial] 110 H Respiratory Rate 18 Blood Pressure [Right Arm] 117/65 Blood Pressure Mean [Right Arm] 82 02 Sat by Pulse Oximetry 97 Oxygen Delivery Method Room Air - Lab Data Lab Results 04/11/19 09:40: WBC 10.4, RBC 4.15 L, Hgb 12.9 L, Hct 40.0 L, MCV 96.5 H, MCH 31.1, MCHC 32.3, RDW 14.0, Plt Count 277, MPV 8.6, Neut % (Auto) 66.5, Lymph % (Auto) 27.0, [place] % (Auto) 4.5, Eos % (Auto) 1.7, Baso % (Auto) 0.2, Neut # (Auto) 7.0, Lymph # (Auto) 2.8, [place] # (Auto) 0.5, Eos # (Auto) 0.2, Baso # (Auto) 0.0 04/11/19 09:40: PT 12.5 H, INR 1.21 H, APTT 31.3 04/11/19 09:40: Sodium 137, Potassium 4.7, Chloride 102, Carbon Dioxide 20 L, Anion Gap 19.7 H, BUN 22 H, Creatinine 1.43 H, Estimated Creat Clear 77, Estimated GFR 48 L, Est GFR ( Amer) 58 L, Glucose 254 H, Calcium 8.9, Total Bilirubin 0.4, AST 14 L, ALT 32, Alkaline Phosphatase 66, Total Protein 6.8, Albumin 3.2 L, Globulin 3.6 H, Albumin/Globulin Ratio 0.9 L 04/11/19 09:55: Blood Type O Positive, Antibody Screen Negative Result diagrams: 04/11/19 09:40 04/11/19 09:40 Orders (Tests/Meds): ED MEDICATIONS Generic Name Dose Route Start Last Admin Trade Name Peyton PRN Reason Stop Dose Admin Sodium Chloride 1,000 mls @ 999 mls/hr 04/11/19 10:45 04/11/19 10:42 Sod Chlor 0.9% 1000ml Bag IV 04/11/19 11:45 999 mls/hr .Q1H1M YORDY Administration Medical Decision Narrative: Patient with melanotic stool He was able to provide a sample. Suspect this is secondary to his anticoagulant use which has happened before. He has no abdominal pain, no recent illnesses, fevers, vomiting. His hemoglobin is appropriate at this time, but I do fear that he will continue to drop given his pulse of 110. His blood pressures currently stable. Type and screen sent and hemoglobin will be repeated every 4 hours. He does have a significant anion gap, fluids are started as well. I discussed this case with Dr. Seymour who accepts the patient for further admission. GI Bleed HPI - General Stated complaint: blood in stool11 Time Seen by Provider: 04/11/19 09:40 Mode of Arrival: Ambulatory Source of Information: Patient Limitations: No Limitations - History of Present Illness HPI Narrative: This is a 73-year-old male with a past medical history significant for hypertension, hyperlipidemia, CVA, atrial fibrillation on Xarelto who presents to the emergency department for evaluation of GI bleed that started at 10:00 last night. He has not had any vomiting. He has had several bowel movements with dark red blood and black-colored blood. This happened to him before when he was on Eliquis. However when he was taken off the anticoagulant he had a DVT in the right leg, so was placed back on Xarelto 2 to 3 months ago. During his previous episode of GI bleed, a colonoscopy was unremarkable. He denies any abdominal pain, fevers. No exacerbating or alleviating factors. - Related Data Home Medications Medication Instructions Recorded Confirmed Furosemide [Furosemide 40MG tAB] 20 mg PO DAILY 02/26/18 12/28/18 Insulin Aspart [Novolog Flexpen] 0 units SQ ACHS 02/26/18 12/28/18 Metformin HCl [Fortamet] 1,000 mg PO BID 02/26/18 12/28/18 Umeclidinium Brm/Vilanterol Tr 1 each IH DAILY 02/26/18 12/27/18 [Anoro Ellipta 62.5-25 Mcg INH] lisinopriL [Lisinopril 20mg Tab] 20 mg PO DAILY 02/26/18 12/28/18 Montelukast Sodium [Montelukast 10 mg PO DAILY 09/13/18 12/28/18 10mg Tab] Rivaroxaban [Xarelto 20mg Tablet*] 20 mg PO DAILY 09/13/18 12/28/18 Previous Rx's Medication Instructions Recorded dilTIAZem HCL [Cardizem 180mg ER 180 mg PO DAILY 30 Days #30 12/28/18 Cap] capsule.er Allergies Allergy/AdvReac Type Severity Reaction Status Date / Time Hqaksrm-Lkp-Tfv Reductase Allergy Unknown MUSCLE Verified 04/11/19 09:42 Inhibitor WEAKNESS [LSZGOLH-QUU-SGK REDUCTASE INHIBITOR] atorvastatin [From Lipitor] Allergy Verified 04/11/19 09:42 [facility] History - Hepatitis A Screen Attestation statement:: This patient has been screened for Hepatitis A risk factors. I have reviewed the patient's past medical history: Yes Medical History: Reports:: Atrial Fibrillation, Coronary Artery Disease, Diabetes Mellitus Type 2, Hyperlipidemia, Hypertension, Myocardial Infarction Denies:: Cancer, Diabetes Mellitus Type 1, MRSA Other Medical History: Reports: Arthritis, Sinus Problems Other Surgeries: Yes: Cardiac Catheterization, Cardiac Surgery, Colonoscopy, Coronary Stent, Open Heart Surgery, Sinus Surgery Amputation: No Fractures: No - Social History Smoking Status: Former smoker Tobacco Type: cigarettes # Packs/Day (cigarettes): 2 #Yrs smoked (if former smoker): 15 Alcohol Intake: never Occupational Status: retired, disabled Housing: house Household Members: none Family Hx:: Coronary Artery Disease, Diabetes ROS Obtained: Yes All systems reviewed & no additional complaints Physical Exam - General General appearance: alert, in no apparent distress - Head Head exam: atraumatic, normocephalic - ENT ENT exam: Present: normal oropharynx, mucous membranes moist - Neck Neck exam: Present: normal inspection, full ROM, trachea midline - Chest Chest inspection: Present: normal inspection, symmetric chest wall rise. Absent: tenderness - Respiratory Respiratory exam: Present: normal lung sounds bilaterally. Absent: respiratory distress - Cardiovascular Cardiovascular exam: Present: regular rate, normal rhythm. Absent: JVD - Abdominal Exam Abdominal exam: Present: soft, normal bowel sounds. Absent: distention, tenderness, guarding - Neurological Exam Neurological exam: Present: alert, oriented X3 - Psychiatric Psychiatric exam: Present: normal affect, normal mood - Skin Skin exam: Present: warm, dry, intact, normal color
[2019-04-11 09:55] LABS: Basophils % 0.2 % (0.1-2.0); Eosinophils # 0.2 K/mm3 (0.0-0.4); Eosinophils % 1.7 % (0.1-12.0); Hemoglobin 12.9 g/dL (14.1-18.0); Lymphocytes # 2.8 K/mm3 (0.7-4.5); Mean Corpuscular HGB Conc 32.3 g/dL (31.8-35.4); Mean Corpuscular Volume 96.5 fl (80-94); Mean Platelet Volume 8.6 fl (7.4-10.4); Monocytes # 0.5 K/mm3 (0.1-1.0); Monocytes % 4.5 % (1.7-9.3); Neutrophils % 66.5 % (37.0-80.0); Platelet Count 277 K/mm3 (142-424); Red Blood Count 4.15 M/mm3 (4.60-6.20); White Blood Count 10.4 K/mm3 (4.8-10.8)
[2019-04-11 09:59] LABS: Activated Partial Thrombo Time 31.3 seconds (23.6-34.0); INR 1.21 (0.9-1.1); Prothrombin Time 12.5 seconds (9.4-11.8)
[2019-04-11 10:00] LABS: Albumin Level 3.2 gm/dL (3.4-5.0); Albumin/Globulin Ratio 0.9 (1.1-1.8); Anion Gap 19.7 mEq/L (5-15); Bilirubin,Total 0.4 mg/dL (0.2-1.0); Calcium 8.9 mg/dL (8.5-10.1); Globulin 3.6 gm/dl (1.3-3.2); Total Protein,Serum 6.8 gm/dL (6.4-8.2)
[2019-04-11 10:58] LABS: Microscopic, Urine URINE MICROSCOPIC (MICROSCOPIC)
[2019-04-11 11:01] LABS: Appearance,Urine CLEAR (Clear); Bilirubin,Urine Negative (Negative); Blood, Urine Negative (Negative); Color,Urine YELLOW (Yellow); Glucose,Urine (UA) 2+ (Negative); Ketones,Urine Negative (Negative); Leukocyte Esterase,Urine Negative (Negative); PH,Urine 5.5 (5.0-8.5); Protein,Urine Negative (Negative); Specific Gravity, Urine >= 1.030 (1.005-1.030); Urobilinogen,Urine 0.2 EU/dl (0.2)
[2019-04-11 11:26] LABS: Hematocrit 37.3 % (42.0-52.0); Hemoglobin 12.2 g/dL (14.1-18.0)
[2019-04-11 11:31] LABS: Bacteria,Urine 2+ /lpf; Mucus,Urine 2+ /lpf
--- NOTE | 2019-04-11 13:26 | Pharmacy Consult Notes ---
[facility] Pharmacy VTE Monitoring - Patient Demographics Admission date: 04/11/19 Report Date: 04/11/19 Time: 13:26 Allergies/Adverse Reactions: Patient Allergies Avkpqsk-Klb-Wso Reductase Inhibitor [OBLKAEA-YKH-FLB REDUCTASE INHIBITOR] Allergy (Unknown, Verified 04/11/19 09:42) MUSCLE WEAKNESS atorvastatin [From Lipitor] Allergy (Verified 04/11/19 09:42) Height: 1.75 m Weight: 126.184 kg Patient Problems: Current Active Problems GI bleed (Acute) Dehydration (Acute) - VTE Risk Labs: VTE Related Lab Results Hgb 12.2 g/dL (14.1-18.0) L 04/11/19 11:05 Hct 37.3 % (42.0-52.0) L 04/11/19 11:05 Plt Count 277 K/mm3 (142-424) 04/11/19 09:40 PT 12.5 seconds (9.4-11.8) H 04/11/19 09:40 INR 1.21 (0.9-1.1) H 04/11/19 09:40 APTT 31.3 seconds (23.6-34.0) 04/11/19 09:40 BUN 22 mg/dL (7-18) H 04/11/19 09:40 Creatinine 1.43 mg/dL (0.70-1.30) H 04/11/19 09:40 Estimated Creat Clear 77 mL/min (50-200) 04/11/19 09:40 VTE Score: 6 VTE Risk Level: Moderate Risk - Prophylaxis VTE Prophylaxis Ordered?: Yes Types of VTE Prophylaxis: TEDS Knee High Location of Applied Device: Bilateral Lower Extremeties
[2019-04-11 17:28] LABS: Hematocrit 33.8 % (42.0-52.0); Hemoglobin 11.1 g/dL (14.1-18.0)
--- NOTE | 2019-04-11 17:42 | History & Physical Report ---
*Admission Date: 04/11/19 *Chief complaint: Rectal bleeding *History of present illness: 73-year-old white male with extensive and complex past medical history including multiple myocardial infarctions with CABG procedure x2, most recently in 2016, complicated by CVA and stay at the [facility]. He was discharged home on Eliquis therapy and in February 2018 had bleeding from this therapy. He had EGD that was done, negative, and bleeding stopped, and it was decided to forego colonoscopy because of his extensive medical history and perform a Cologuard test which was unremarkable. Patient remains in atrial fibrillation but the decision was made to hold Eliquis at that time because of the bleeding. In April 2018 patient suffered a massive DVT from the femoral vein all the way down the leg, and Eliquis was restarted. He has done well since that time except for an admission in December 2018 for significant bradycardia that resolved after beta-blockers were stopped and he was placed on a lower dose of calcium channel araseli. He is done fairly well since that time until the last couple of days when he is noticed maroon-red clots in his bowel movements. Denies melena, denies bright red blood, and denies upper GI bleeding symptoms. In fact he is hungry, denies nausea or vomiting. Came to the emergency department. Hemoglobin stable, minimally tachycardic but blood pressure stable with no orthostasis. Continued to have maroon stools and was admitted to hospital for serial blood counts and further decision-making. [facility] History I have reviewed the patient's past medical history: Yes Medical History: Reports:: Atrial Fibrillation, Coronary Artery Disease, Diabetes Mellitus Type 2, Hyperlipidemia, Hypertension, Myocardial Infarction Denies:: Cancer, Diabetes Mellitus Type 1, MRSA *Have you ever received a pneumonia vaccine?: No *Have you received a flu vaccine this season?: No Other Medical History: Reports: Arthritis, Sinus Problems Other Surgeries: Yes: Cardiac Catheterization, Cardiac Surgery, Colonoscopy, Coronary Stent, Open Heart Surgery, Sinus Surgery Amputation: No Fractures: No - *Social History Educational Level: Attended High School Smoking Status: Former smoker Tobacco Type: cigarettes # Packs/Day (cigarettes): 2 #Yrs smoked (if former smoker): 15 Alcohol Intake: never *Occupational Status:: retired, disabled Housing: house Household Members: none *Travel in the last 8 weeks: None Family Hx:: Coronary Artery Disease, Diabetes Review of Systems - Review of Systems Review of systems:: pertinent systems reviewed and negative unless documented below - Constitutional Reports fatigue, Denies anorexia, Denies fever(s), Denies headache(s) - Eyes Denies blind spots, Denies blurry vision - ENT Reports dizziness, Denies abnormal hearing, Denies poor balance - *Cardiovascular Reports excessive sweating, Reports shortness of breath, Reports shortness of breath with activity, Reports irregular heart rhythm, Reports leg swelling, Denies chest pain - *Respiratory Denies change in phlegm color, Denies chest congestion, Denies shortness of breath with activity, Denies excessive phlegm production - *Gastrointestinal Reports change in stools, Denies abdominal pain, Denies coffee ground vomit, Denies constipation, Denies black, tarry stools - *Genitourinary Denies difficulty urinating, Denies painful urination - *Musculoskeletal Denies abnormal walking, Denies joint swelling - Integumentary/Breasts Denies acne, Denies hair loss - *Neurologic Reports dizziness, Denies abnormal walking, Denies behavioral changes, Denies unsteadiness Meds Home Medications Medication Instructions Recorded Confirmed Type Furosemide [Furosemide 40MG tAB] 20 mg PO DAILY 02/26/18 04/11/19 History Insulin Aspart [Novolog Flexpen] 0 units SQ ACHS 02/26/18 04/11/19 History Metformin HCl [Fortamet] 1,000 mg PO BID 02/26/18 04/11/19 History Umeclidinium Brm/Vilanterol Tr 1 each IH DAILY 02/26/18 04/11/19 History [Anoro Ellipta 62.5-25 Mcg INH] lisinopriL [Lisinopril 20mg Tab] 20 mg PO BID 02/26/18 04/11/19 History Montelukast Sodium [Montelukast 10 mg PO DAILY 09/13/18 04/11/19 History 10mg Tab] Rivaroxaban [Xarelto 20mg Tablet*] 20 mg PO HS 09/13/18 04/11/19 History dilTIAZem HCL [Cardizem 180mg ER 180 mg PO BID 04/11/19 04/11/19 History Cap] Allergies Allergy/AdvReac Type Severity Reaction Status Date / Time Ukvqybe-Lia-Iae Reductase Allergy Unknown MUSCLE Verified 04/11/19 09:42 Inhibitor WEAKNESS [UTRKCGP-TRL-MQP REDUCTASE INHIBITOR] atorvastatin [From Lipitor] Allergy Verified 04/11/19 09:42 Exam Vital signs and Labs for Last 24 Hours: Temp Pulse Resp BP Pulse Ox 98.1 F 77 19 127/72 99 04/11/19 15:34 04/11/19 15:34 04/11/19 15:34 04/11/19 15:34 04/11/19 15:34 Laboratory Results - last 24 hr 04/11/19 09:40: WBC 10.4, RBC 4.15 L, Hgb 12.9 L, Hct 40.0 L, MCV 96.5 H, MCH 31.1, MCHC 32.3, RDW 14.0, Plt Count 277, MPV 8.6, Neut % (Auto) 66.5, Lymph % (Auto) 27.0, [place] % (Auto) 4.5, Eos % (Auto) 1.7, Baso % (Auto) 0.2, Neut # (Auto) 7.0, Lymph # (Auto) 2.8, [place] # (Auto) 0.5, Eos # (Auto) 0.2, Baso # (Auto) 0.0 04/11/19 09:40: PT 12.5 H, INR 1.21 H, APTT 31.3 04/11/19 09:40: Sodium 137, Potassium 4.7, Chloride 102, Carbon Dioxide 20 L, Anion Gap 19.7 H, BUN 22 H, Creatinine 1.43 H, Estimated Creat Clear 77, Estimated GFR 48 L, Est GFR ( Amer) 58 L, Glucose 254 H, Calcium 8.9, Total Bilirubin 0.4, AST 14 L, ALT 32, Alkaline Phosphatase 66, Total Protein 6.8, Albumin 3.2 L, Globulin 3.6 H, Albumin/Globulin Ratio 0.9 L 04/11/19 09:55: Blood Type O Positive, Antibody Screen Negative 04/11/19 10:45: Urine Color Yellow, Urine Appearance Clear, Urine pH 5.5, Ur Specific [place] >= 1.030, Urine Protein Negative, Urine Glucose (UA) 2+, Urine Ketones Negative, Urine Blood Negative, Urine Nitrate Negative, Urine Bilirubin Negative, Urine Urobilinogen 0.2, Ur Leukocyte Esterase Negative, Urine WBC 3-5, Urine Bacteria 2+, Hyaline Casts 5-10, Urine Mucus 2+ 04/11/19 10:45: Stool Occult Blood Positive A 04/11/19 11:05: Hgb 12.2 L, Hct 37.3 L 04/11/19 13:57: POC Glucose 139 H 04/11/19 17:11: Hgb 11.1 L, Hct 33.8 L 04/11/19 17:12: POC Glucose 164 H I & O for Last 24 hours: Intake & Output 04/09/19 04/10/19 04/11/19 04/12/19 11:59 11:59 11:59 11:59 Weight 270 lb 278 lb 3 oz Narrative: Patient is talkative, oriented x3. Morbid obesity noted, complicates care and limits exam accuracy. Patient alert, sitting on the side of the bed. Lungs have diminished air entry secondary to obesity but otherwise clear. Heart rate irregular. Abdomen soft, obese. Wearing Moustapha hose. Some puffiness as previously noted in his hands and feet. Mo ves all extremities well. Neurologic deficits. Assessment and Plan (1) History of DVT (deep vein thrombosis) Current visit: Yes Status: Acute Category: Medical Code(s): Z86.718 - Personal history of other venous thrombosis and embolism Significant history, MOUSTAPHA hose for now, hold blood thinners (2) GI bleed Current visit: Yes Status: Acute Qualifiers: GI bleed type/associated pathology: unspecified gastrointestinal hemorrhage type Qualified Code(s): K92.2 - Gastrointestinal hemorrhage, unspecified Category: Medical Code(s): K92.2 - Gastrointestinal hemorrhage, unspecified Assess for ongoing bleeding, serial CBC, surgical consultation tomorrow. History of negative Cologuard test is reassuring. Hold Eliquis for now (3) Near syncope Current visit: No Status: Acute Category: Medical Code(s): R55 - Syncope and collapse (4) A-fib Current visit: No Status: Chronic Qualifiers: Atrial fibrillation type: chronic Category: Medical Code(s): I48.91 - Unspecified atrial fibrillation Complicates care. Indication for anticoagulation but now complex with rectal bleeding (5) Class 3 severe obesity due to excess calories in adult Current visit: No Status: Chronic Qualifiers: Serious obesity comorbidity presence: with serious comorbidity Body mass index: BMI 40.0-44.9 Qualified Code(s): E66.01 - Morbid (severe) obesity due to excess calories; Z68.41 - Body mass index (BMI) 40.0-44.9, adult Category: Medical Code(s): E66.01 - Morbid (severe) obesity due to excess calories Complicates all aspects of his care (6) Coronary artery disease Current visit: No Status: Chronic Category: Medical Code(s): I25.10 - Atherosclerotic heart disease of [place] coronary artery without angina pectoris Elevates risk from GI bleeding secondary to possible ischemic issues. (7) Diabetes Current visit: No Status: Chronic Category: Medical Code(s): E11.9 - Type 2 diabetes mellitus without complications Hold metformin given mild BALDO. Sliding scale insulin (8) Heart failure with reduced ejection fraction, NYHA class II Current visit: No Status: Chronic Category: Medical Code(s): I50.20 - Unspecified systolic (congestive) heart failure Currently euvolemic. Watch volume status carefully. Continue blood pressure control Echocardiogram last year showed 40% ejection fraction, evidence of ischemic cardiomyopathy. (9) BALDO (acute kidney injury) Current visit: No Status: Resolved Category: Medical Code(s): N17.9 - Acute kidney failure, unspecified Watch carefully. Mild at this point
[2019-04-12 00:19] LABS: Basophils % 0.3 % (0.1-2.0); Eosinophils # 0.2 K/mm3 (0.0-0.4); Eosinophils % 2.3 % (0.1-12.0); Hematocrit 30.9 % (42.0-52.0); Lymphocytes # 3.3 K/mm3 (0.7-4.5); Lymphocytes % 31.8 % (10-50); Mean Corpuscular HGB Conc 32.1 g/dL (31.8-35.4); Mean Corpuscular Volume 93.9 fl (80-94); Mean Platelet Volume 8.7 fl (7.4-10.4); Monocytes # 0.6 K/mm3 (0.1-1.0); Monocytes % 5.9 % (1.7-9.3); Neutrophils # 6.1 K/mm3 (1.8-7.8); Neutrophils % 59.6 % (37.0-80.0); Platelet Count 226 K/mm3 (142-424); Red Cell Distribution Width 14.1 % (11.5-17.5); White Blood Count 10.2 K/mm3 (4.8-10.8)
[2019-04-12 06:44] LABS: Anion Gap 15.5 mEq/L (5-15); Bilirubin,Total 0.4 mg/dL (0.2-1.0); Calcium 8.1 mg/dL (8.5-10.1); Globulin 3.1 gm/dl (1.3-3.2); Total Protein,Serum 6.1 gm/dL (6.4-8.2)
--- NOTE | 2019-04-12 07:51 | Progress Note ---
Internal Medicine - PN: Subj *Date: 04/12/19 *Time: 07:49 Interval history: Overall patient feels good, he is hungry. He reports brown stools without blood this morning. Hemoglobin this morning 10 g. Exam Vital signs and Labs for Last 24 Hours: Temp Pulse Resp BP Pulse Ox 98.6 F 104 H 20 114/70 100 04/12/19 04:00 04/12/19 04:00 04/12/19 04:00 04/12/19 04:00 04/12/19 04:00 Laboratory Results - last 24 hr 04/11/19 09:40: WBC 10.4, RBC 4.15 L, Hgb 12.9 L, Hct 40.0 L, MCV 96.5 H, MCH 31.1, MCHC 32.3, RDW 14.0, Plt Count 277, MPV 8.6, Neut % (Auto) 66.5, Lymph % (Auto) 27.0, [place] % (Auto) 4.5, Eos % (Auto) 1.7, Baso % (Auto) 0.2, Neut # (Auto) 7.0, Lymph # (Auto) 2.8, [place] # (Auto) 0.5, Eos # (Auto) 0.2, Baso # (Auto) 0.0 04/11/19 09:40: PT 12.5 H, INR 1.21 H, APTT 31.3 04/11/19 09:40: Sodium 137, Potassium 4.7, Chloride 102, Carbon Dioxide 20 L, Anion Gap 19.7 H, BUN 22 H, Creatinine 1.43 H, Estimated Creat Clear 77, Estimated GFR 48 L, Est GFR ( Amer) 58 L, Glucose 254 H, Calcium 8.9, Total Bilirubin 0.4, AST 14 L, ALT 32, Alkaline Phosphatase 66, Total Protein 6.8, Albumin 3.2 L, Globulin 3.6 H, Albumin/Globulin Ratio 0.9 L 04/11/19 09:55: Blood Type O Positive, Antibody Screen Negative 04/11/19 10:45: Urine Color Yellow, Urine Appearance Clear, Urine pH 5.5, Ur Specific [place] >= 1.030, Urine Protein Negative, Urine Glucose (UA) 2+, Urine Ketones Negative, Urine Blood Negative, Urine Nitrate Negative, Urine Bilirubin Negative, Urine Urobilinogen 0.2, Ur Leukocyte Esterase Negative, Urine WBC 3-5, Urine Bacteria 2+, Hyaline Casts 5-10, Urine Mucus 2+ 04/11/19 10:45: Stool Occult Blood Positive A 04/11/19 11:05: Hgb 12.2 L, Hct 37.3 L 04/11/19 13:57: POC Glucose 139 H 04/11/19 17:11: Hgb 11.1 L, Hct 33.8 L 04/11/19 17:12: POC Glucose 164 H 04/11/19 20:30: POC Glucose 267 H 04/12/19 00:07: WBC 10.2, RBC 3.30 L, Hgb 10.0 L, Hct 30.9 L, MCV 93.9, MCH 30.1, MCHC 32.1, RDW 14.1, Plt Count 226, MPV 8.7, Neut % (Auto) 59.6, Lymph % (Auto) 31.8, [place] % (Auto) 5.9, Eos % (Auto) 2.3, Baso % (Auto) 0.3, Neut # (Auto) 6.1, Lymph # (Auto) 3.3, [place] # (Auto) 0.6, Eos # (Auto) 0.2, Baso # (Auto) 0.0 04/12/19 05:41: POC Glucose 219 H 04/12/19 06:13: Sodium 139, Potassium 4.5, Chloride 105, Carbon Dioxide 23, Anion Gap 15.5 H, BUN 16 D, Creatinine 1.17, Estimated Creat Clear 55, Estimated GFR 61, Est GFR ( Amer) 74 D, Glucose 212 H, Calcium 8.1 L, Total Bilirubin 0.4, AST 12 L, ALT 28, Alkaline Phosphatase 57, Total Protein 6.1 L, Albumin 3.0 L, Globulin 3.1, Albumin/Globulin Ratio 1.0 L I & O for Last 24 hours: Intake & Output 04/09/19 04/10/19 04/11/19 04/12/19 11:59 11:59 11:59 11:59 Intake Total 240 / 240 Balance 240 / 240 Weight 270 lb 280 lb 4 oz Narrative: Abdomen soft and nontender. Heart rate regular. Anterior lung daniels clear. No edema noted. And compression stockings. Alert, oriented x3. Assessment and Plan (1) History of DVT (deep vein thrombosis) Current visit: Yes Status: Acute Category: Medical Code(s): Z86.718 - Personal history of other venous thrombosis and embolism (2) GI bleed Current visit: Yes Status: Acute Qualifiers: GI bleed type/associated pathology: unspecified gastrointestinal hemorrhage type Qualified Code(s): K92.2 - Gastrointestinal hemorrhage, unspecified Category: Medical Code(s): K92.2 - Gastrointestinal hemorrhage, unspecified (3) Near syncope Current visit: No Status: Acute Category: Medical Code(s): R55 - Syncope and collapse (4) A-fib Current visit: No Status: Chronic Qualifiers: Atrial fibrillation type: chronic Category: Medical Code(s): I48.91 - Unspecified atrial fibrillation (5) Class 3 severe obesity due to excess calories in adult Current visit: No Status: Chronic Qualifiers: Serious obesity comorbidity presence: with serious comorbidity Body mass index: BMI 40.0-44.9 Qualified Code(s): E66.01 - Morbid (severe) obesity due to excess calories; Z68.41 - Body mass index (BMI) 40.0-44.9, adult Category: Medical Code(s): E66.01 - Morbid (severe) obesity due to excess calories (6) Coronary artery disease Current visit: No Status: Chronic Category: Medical Code(s): I25.10 - At herosclerotic heart disease of [place] coronary artery without angina pectoris (7) Diabetes Current visit: No Status: Chronic Category: Medical Code(s): E11.9 - Type 2 diabetes mellitus without complications (8) Heart failure with reduced ejection fraction, NYHA class II Current visit: No Status: Chronic Category: Medical Code(s): I50.20 - Unspecified systolic (congestive) heart failure (9) BALDO (acute kidney injury) Current visit: No Status: Resolved Category: Medical Code(s): N17.9 - Acute kidney failure, unspecified - Assessment and plan all Dx Assessment and Plan for all problems:: Creatinine improved. Continue clear liquids. Surgical consultation today. Patient will probably need IVC filter given his recent DVT. I will investigate referral for this.
--- NOTE | 2019-04-12 09:11 | Discharge Summary ---
General - General Admission date:: 04/11/19 Discharge date: 04/12/19 HPI HPI: 73-year-old white male with extensive and complex past medical history including multiple myocardial infarctions with CABG procedure x2, most recently in 2016, complicated by CVA and stay at the [facility]. He was discharged home on Eliquis therapy and in February 2018 had bleeding from this therapy. He had EGD that was done, negative, and bleeding stopped, and it was decided to forego colonoscopy because of his extensive medical history and perform a Cologuard test which was unremarkable. Patient remains in atrial fibrillation but the decision was made to hold Eliquis at that time because of the bleeding. In April 2018 patient suffered a massive DVT from the femoral vein all the way down the leg, and Xarelto was started. He has done well since that time except for an admission in December 2018 for significant bradycardia that resolved after beta-blockers were stopped and he was placed on a lower dose of calcium channel araseli. He is done fairly well since that time until the last couple of days when he is noticed maroon-red clots in his bowel movements. Denies melena, denies bright red blood, and denies upper GI bleeding symptoms. In fact he is hungry, denies nausea or vomiting. Came to the emergency department. Hemoglobin stable, minimally tachycardic but blood pressure stable with no orthostasis. Continued to have maroon stools and was admitted to hospital for serial blood counts and further decision-making. Hospital Course Hospital Course: Admitted to [facility] - several more maroon stools - changed to brown with no visible blood today. Hgb down to 10 this am.. No cp or SOA. Exam unchanged. Given need for IVC filter - recent large DVT - patient will be transferred to [facility] for IR, Cards and surgery eval. Objective Vital signs: Temp Pulse Resp BP Pulse Ox 98.4 F 108 H 20 115/71 98 04/12/19 08:00 04/12/19 08:00 04/12/19 08:00 04/12/19 08:00 04/12/19 08:00 Narrative: NAD no acute distress, morbidly obese - *Routine HEENT Exam Head: Present: normocephalic Eye: Present: EOMI - *Routine Neck Exam Present: supple - *Routine Respiratory Exam Present: CTA bilaterally - *Routine Cardiovascular Exam Present: irregular rhythm - *Routine Abdominal Exam Present: soft, obese - *Routine Extremities Exam Present: edema, full ROM - *Routine Neurological Exam Present: alert, oriented X3, CN II-XII intact Results Labs on day of discharge: Labs from last 24 hours 04/12/19 04/12/19 04/12/19 06:13 05:41 00:07 WBC 10.2 RBC 3.30 L Hgb 10.0 L Hct 30.9 L MCV 93.9 MCH 30.1 MCHC 32.1 RDW 14.1 Plt Count 226 MPV 8.7 Neut % (Auto) 59.6 Lymph % (Auto) 31.8 [place] % (Auto) 5.9 Eos % (Auto) 2.3 Baso % (Auto) 0.3 Neut # (Auto) 6.1 Lymph # (Auto) 3.3 [place] # (Auto) 0.6 Eos # (Auto) 0.2 Baso # (Auto) 0.0 PT INR APTT Sodium 139 Potassium 4.5 Chloride 105 Carbon Dioxide 23 Anion Gap 15.5 H BUN 16 D Creatinine 1.17 Estimated Creat Clear 55 Estimated GFR 61 Est GFR ( Amer) 74 D Glucose 212 H POC Glucose 219 H Calcium 8.1 L Total Bilirubin 0.4 AST 12 L ALT 28 Alkaline Phosphatase 57 Total Protein 6.1 L Albumin 3.0 L Globulin 3.1 Albumin/Globulin Ratio 1.0 L Urine Color Urine Appearance Urine pH Ur Specific [place] Urine Protein Urine Glucose (UA) Urine Ketones Urine Blood Urine Nitrate Urine Bilirubin Urine Urobilinogen Ur Leukocyte Esterase Urine WBC Urine Bacteria Hyaline Casts Urine Mucus Stool Occult Blood Blood Type Antibody Screen 04/11/19 04/11/19 04/11/19 20:30 17:12 17:11 WBC RBC Hgb 11.1 L Hct 33.8 L MCV MCH MCHC RDW Plt Count MPV Neut % (Auto) Lymph % (Auto) [place] % (Auto) Eos % (Auto) Baso % (Auto) Neut # (Auto) Lymph # (Auto) [place] # (Auto) Eos # (Auto) Baso # (Auto) PT INR APTT Sodium Potassium Chloride Carbon Dioxide Anion Gap BUN Creatinine Estimated Creat Clear Estimated GFR Est GFR ( Amer) Glucose POC Glucose 267 H 164 H Calcium Total Bilirubin AST ALT Alkaline Phosphatase Total Protein Albumin Globulin Albumin/Globulin Ratio Urine Color Urine Appearance Urine pH Ur Specific [place] Urine Protein Urine Glucose (UA) Urine Ketones Urine Blood Urine Nitrate Urine Bilirubin Urine Urobilinogen Ur Leukocyte Esterase Urine WBC Urine Bacteria Hyaline Casts Urine Mucus Stool Occult Blood Blood Type Antibody Screen 04/11/19 04/11/19 04/11/19 13:57 11:05 10:45 WBC RBC Hgb 12.2 L Hct 37.3 L MCV MCH MCHC RDW Plt Count MPV Neut % (Auto) Lymph % (Auto) [place] % (Auto) Eos % (Auto) Baso % (Auto) Neut # (Auto) Lymph # (Auto) [place] # (Auto) Eos # (Auto) Baso # (Auto) PT INR APTT Sodium Potassium Chloride Carbon Dioxide Anion Gap BUN Creatinine Estimated Creat Clear Estimated GFR Est GFR ( Amer) Glucose POC Glucose 139 H Calcium Total Bilirubin AST ALT Alkaline Phosphatase Total Protein Albumin Globulin Albumin/Globulin Ratio Urine Color Urine Appearance Urine pH Ur Specific [place] Urine Protein Urine Glucose (UA) Urine Ketones Urine Blood Urine Nitrate Urine Bilirubin Urine Urobilinogen Ur Leukocyte Esterase Urine WBC Urine Bacteria Hyaline Casts Urine Mucus Stool Occult Blood Positive A Blood Type Antibody Screen 04/11/19 04/11/19 04/11/19 10:45 09:55 09:40 WBC RBC Hgb Hct MCV MCH MCHC RDW Plt Count MPV Neut % (Auto) Lymph % (Auto) [place] % (Auto) Eos % (Auto) Baso % (Auto) Neut # (Auto) Lymph # (Auto) [place] # (Auto) Eos # (Auto) Baso # (Auto) PT INR APTT Sodium 137 Potassium 4.7 Chloride 102 Carbon Dioxide 20 L Anion Gap 19.7 H BUN 22 H Creatinine 1.43 H Estimated Creat Clear 77 Estimated GFR 48 L Est GFR ( Amer) 58 L Glucose 254 H POC Glucose Calcium 8.9 Total Bilirubin 0.4 AST 14 L ALT 32 Alkaline Phosphatase 66 Total Protein 6.8 Albumin 3.2 L Globulin 3.6 H Albumin/Globulin Ratio 0.9 L Urine Color Yellow Urine Appearance Clear Urine pH 5.5 Ur Specific [place] >= 1.030 Urine Protein Negative Urine Glucose (UA) 2+ Urine Ketones Negative Urine Blood Negative Urine Nitrate Negative Urine Bilirubin Negative Urine Urobilinogen 0.2 Ur Leukocyte Esterase Negative Urine WBC 3-5 Urine Bacteria 2+ Hyaline Casts 5-10 Urine Mucus 2+ Stool Occult Blood Blood Type O Positive Antibody Screen Negative 04/11/19 04/11/19 09:40 09:40 WBC 10.4 RBC 4.15 L Hgb 12.9 L Hct 40.0 L MCV 96.5 H MCH 31.1 MCHC 32.3 RDW 14.0 Plt Count 277 MPV 8.6 Neut % (Auto) 66.5 Lymph % (Auto) 27.0 [place] % (Auto) 4.5 Eos % (Auto) 1.7 Baso % (Auto) 0.2 Neut # (Auto) 7.0 Lymph # (Auto) 2.8 [place] # (Auto) 0.5 Eos # (Auto) 0.2 Baso # (Auto) 0.0 PT 12.5 H INR 1.21 H APTT 31.3 Sodium Potassium Chloride Carbon Dioxide Anion Gap BUN Creatinine Estimated Creat Clear Estimated GFR Est GFR ( Amer) Glucose POC Glucose Calcium Total Bilirubin AST ALT Alkaline Phosphatase Total Protein Albumin Globulin Albumin/Globulin Ratio Urine Color Urine Appearance Urine pH Ur Specific [place] Urine Protein Urine Glucose (UA) Urine Ketones Urine Blood Urine Nitrate Urine Bilirubin Urine Urobilinogen Ur Leukocyte Esterase Urine WBC Urine Bacteria Hyaline Casts Urine Mucus Stool Occult Blood Blood Type Antibody Screen Preliminary micro results at discharge 04/11/19 10:45 Urine Culture - Preliminary Urine,Clean Catch DS: Diagnosis - Discharge Diagnosis (1) History of DVT (deep vein thrombosis) Status: Chronic (2) GI bleed Status: Acute (3) Near syncope Status: Acute (4) A-fib Status: Chronic (5) Class 3 severe obesity due to excess calories in adult Status: Chronic (6) Coronary artery disease Status: Chronic (7) Diabetes Status: Chronic (8) Heart failure with reduced ejection fraction, NYHA class II Status: Chronic (9) BALDO (acute kidney injury) Status: Resolved Discharge Plan - Patient Discharge Instructions ACTIVITY: Continue current activity DIET: NPO Patient Instructions: DI for Acute Abdomen - Follow up Plan Disposition: Xfer Short-Term Hosp Home Medications: Home Medications Medication Instructions Recorded Confirmed Type Furosemide [Furosemide 40MG tAB] 20 mg PO DAILY 02/26/18 04/11/19 History Insulin Aspart [Novolog Flexpen] 0 units SQ ACHS 02/26/18 04/11/19 History Metformin HCl [Fortamet] 1,000 mg PO BID 02/26/18 04/11/19 History Umeclidinium Brm/Vilanterol Tr 1 each IH DAILY 02/26/18 04/11/19 History [Anoro Ellipta 62.5-25 Mcg INH] lisinopriL [Lisinopril 20mg Tab] 20 mg PO BID 02/26/18 04/11/19 History Montelukast Sodium [Montelukast 10 mg PO DAILY 09/13/18 04/11/19 History 10mg Tab] Rivaroxaban [Xarelto 20mg Tablet*] 20 mg PO HS 09/13/18 04/11/19 History dilTIAZem HCL [Cardizem 180mg ER 180 mg PO BID 04/11/19 04/11/19 History Cap] Prescriptions/Medication Reconciliation: Continued Umeclidinium Brm/Vilanterol Tr [Anoro Ellipta 62.5-25 Mcg INH] 1 each IH DAILY lisinopriL [Lisinopril 20mg Tab] 20 mg PO BID Montelukast Sodium [Montelukast 10mg Tab] 10 mg PO DAILY dilTIAZem HCL [Cardizem 180mg ER Cap] 180 mg PO BID Insulin Aspart [Novolog Flexpen] 0 units SQ ACHS Discontinued Furosemide [Furosemide 40MG tAB] 20 mg PO DAILY Metformin HCl [Fortamet] 1,000 mg PO BID Rivaroxaban [Xarelto 20mg Tablet*] 20 mg PO HS - Problem Reconciliation Problems Reviewed?: Yes
== END 2019-04-12 11:51 | disposition short-term general hospital (02) ==
LOC: ER 09:31 → 2ND 09:31
PROVIDERS: ADMIT Internal Medicine Adolescent Medicine; ATTEND Internal Medicine Adolescent Medicine
CPT/HCPCS: 36415; 80053; 81001; 82272; 82962; 85014; 85018; 85025; 85610; 85730; 86850; 87086; 96365; 99284; G0328; G0378

== ENCOUNTER → 2019-04-20 12:47 | Outpatient (CLI) | payer MEDICARE, SELFPAY ==
--- NOTE | 2019-04-20 12:55 | XR_ITS ---
PROCEDURE: XR ANKLE RT MIN 3V CLINICAL INDICATION: RT FOOT PAIN AND SWELLING COMPARISON: No exams were available for comparison FINDINGS: Bone density, joint spaces and alignment are normal. There are medial subcutaneous surgical clips. There appears to be some mild prominence of the anterior lateral subcutaneous soft tissues without radiopaque foreign body. IMPRESSION: Lateral and anterior mild soft tissue edema. No acute fracture. Dictated by: Alfonso Dobbins 04/20/2019 13:45 Electronically signed by Alfonso Dobbins in [place] 04/20/2019 13:45
--- NOTE | 2019-04-20 12:55 | XR_ITS ---
PROCEDURE: XR FOOT RT MIN 3V CLINICAL INDICATION: RT FOOT PAIN AND SWELLING COMPARISON: [id number] XR foot RT min 3V from 08/17/2017 FINDINGS: Bone density is normal. There are posterior and plantar small calcaneal spurs. There is narrowing of the 1st MTP joint with hallux valgus angulation. There is narrowing of the 2nd MTP joint. No evidence of acute fracture. Surgical clip is in the medial soft tissues at the ankle. IMPRESSION: No acute fracture. Calcaneal spurs. Osteoarthritic changes at the 1st and 2nd MTP joints. Dictated by: Alfonso Dobbins 04/20/2019 13:44 Electronically signed by Alfonso Dobbins in [place] 04/20/2019 13:44
[2019-04-20 15:18] LABS: Uric Acid 9.9 mg/dL (2.6-7.2)
== END ==
PROVIDERS: PCP Internal Medicine Adolescent Medicine; Visit Provider Nurse Practitioner Family
DX: M79.671 Pain in right foot (principal); M79.89 Other specified soft tissue disorders; M25.571 Pain in right ankle and joints of right foot
CPT/HCPCS: 36415; 73610; 73630; 84550

== ENCOUNTER 2019-05-28 09:45 | Inpatient (IN) ==
--- NOTE | 2019-05-28 10:59 | Pharmacy Consult Notes ---
[facility] Pharmacy VTE Monitoring - Patient Demographics Admission date: 05/28/19 Report Date: 05/28/19 Time: 10:58 Allergies/Adverse Reactions: Patient Allergies Hqhnpef-Zco-Nwz Reductase Inhibitor [[id number]-IGD-YVM REDUCTASE INHIBITOR] Allergy (Unknown, Verified 04/11/19 09:42) MUSCLE WEAKNESS atorvastatin [From Lipitor] Allergy (Verified 04/11/19 09:42) Height: 1.75 m Weight: 132.08 kg - VTE Risk Was VTE Risk Assessment Performed: Yes VTE Score: 6 VTE Risk Level: Moderate Risk - Prophylaxis VTE Prophylaxis Ordered?: Yes Types of VTE Prophylaxis: TEDS Knee High Location of Applied Device: Bilateral Lower Extremeties Pharmacologic Type: Enoxaparin (LOVENOX ORDERED BUT PENDING)
[2019-05-28 11:04] LABS: Basophils # 0.1 K/mm3 (0-0.2); Basophils % 0.3 % (0.1-2.0); Eosinophils # 0.4 K/mm3 (0.0-0.4); Eosinophils % 2.8 % (0.1-12.0); Hematocrit 37.9 % (42.0-52.0); Hemoglobin 11.8 g/dL (14.1-18.0); Lymphocytes # 2.6 K/mm3 (0.7-4.5); Lymphocytes % 18.4 % (10-50); Mean Corpuscular HGB Conc 31.2 g/dL (31.8-35.4); Mean Corpuscular Volume 89.5 fl (80-94); Mean Platelet Volume 8.3 fl (7.4-10.4); Monocytes # 0.6 K/mm3 (0.1-1.0); Monocytes % 4.5 % (1.7-9.3); Neutrophils # 10.4 K/mm3 (1.8-7.8); Platelet Count 371 K/mm3 (142-424); Red Blood Count 4.24 M/mm3 (4.60-6.20); Red Cell Distribution Width 14.1 % (11.5-17.5); White Blood Count 14.1 K/mm3 (4.8-10.8)
[2019-05-28 11:20] LABS: Albumin Level 3.4 gm/dL (3.4-5.0); Albumin/Globulin Ratio 0.9 (1.1-1.8); Anion Gap 18.2 mEq/L (5-15); Bilirubin,Total 0.2 mg/dL (0.2-1.0); Calcium 8.8 mg/dL (8.5-10.1); Globulin 3.6 gm/dl (1.3-3.2)
--- NOTE | 2019-05-28 13:30 | Consult Report ---
History of Present Illness Consult date: 05/28/19 Requesting physician: Juan Pablo Da Silva Consult reason: atrial fibrillation Chief complaint: SOA Additional Medical History:: 1. Coronary artery disease with old SC A. History of CABG, about 1999 B. History of coronary stents since CABG 2. Atrial fibrillation A. Chronic anticoagulation stopped due to GI bleed (colonoscopy 2018 showed diverticulosis) 3. Diabetes mellitus, insulin treated 4. Hypertension A. Echo, 09/2017, 1. Technically difficult study because of the patient's factor and poor acoustic windows, repeat study with Definity contrast is recommended. 2. The left atrium is mildly enlarged, left ventricle is normal size, mild concentric left ventricular hypertrophy, visually estimated ejection fraction is approximately 40%, endocardial surface of poorly visualized, there appears to be marked hypokinesis involving the basal septum and inferior wall. A repeat study with definitely contrast is recommended. 3. The aortic valve is thickened and calcified with restriction the leaflet mobility. 4. The mitral and tricuspid valve leaflets are minimally thickened. 5. The pulmonic valve is poorly visualized. 6. No significant pericardial effusion noted. DOPPLER INTERROGATION: Doppler interrogation of the aortic, mitral and tricuspid valvular presence of May gradient across aortic valve of 11 mmHg represents mild aortic stenosis, there is no aortic insufficiency. There is mild mitral and tricuspid regurgitation, diastolic parameters are inconclusive. Tricuspid regurgitant jet velocity insufficient for calculation of the right ventricular systolic pressure. CONCLUSION: 1. Technically difficult study because of the patient's factor and poor acoustic windows 2. Mildly enlarged left atrium, normal left ventricular size, mild concentric left ventricular hypertrophy, estimated ejection fraction 40% with segmental wall motion abnormality described above, repeat study with Definity contrast is recommended. Diastolic parameters are inconclusive. 3. Thickened and calcified aortic valve with mean gradient across valve of 11 mmHg represents mild aortic stenosis, there is no aortic insufficiency. 4. Mild mitral and tricuspid regurgitation 5. No significant pericardial effusion noted. 5. Hyperlipidemia 6. CVA during cardiac cath, approx 2014 A. On ASA therapy 7. ALICIA, CPAP therapy 8. Obesity 9. History of DVT right leg, 04/2018 A. S/P IVC filter placed, [facility], late 2018 10. PE by CTA, 05/2019 11. Pulmonary HTN by CT of chest, 08/2018 12. RUL mass on CT of chest, 08/2018 History of present illness: 74-year-old white male with multiple medical problems as noted above presented to Dr. Da Silva's office today for evaluation of increasing shortness of breath and rapid heart rate. Patient was felt to be in congestive heart failure with atrial fibrillation and rapid ventricular response and was subsequently admitted to the hospital for further evaluation. Patient describes multiple medical issues recently including GI bleeding which has prompted discontinuation of anticoagulation for his atrial fibrillation and colonoscopy which has revealed diverticular disease. Patient has a history of recurrent DVT as well for which an IVC filter has been recently placed. Patient's atrial fibrillation has gradually become uncontrolled with a recent admission last year for significant bradycardia that resolved with holding his beta-araseli and reducing Cardizem dosing. Patient does have a cardiomyopathy by echocardiogram last year with an ejection fraction of approximately 40% with wall motion abnormalities consistent with prior SC and bypass surgery. The patient states his CPAP machine has been out of order over the last week and he has noticed increasing episodes of fast heart rate with increased lower extremity edema and increased shortness of breath. Patient did receive 80 of Lasix IV upon arrival to his room with significant diuresis and some improvement in his symptoms. Patient continues in a rapid atrial fibrillation despite Cardizem IV at 15 mg/hr. [facility] History Medical History: Reports:: Atrial Fibrillation, Congestive Heart Failure, Coronary Artery Disease, Deep Vein Thrombosis, Diabetes Mellitus Type 2, Hyperlipidemia, Hypertension, Myocardial Infarction Denies:: Cancer, Diabetes Mellitus Type 1, MRSA *Have you ever received a pneumonia vaccine?: Yes *Have you received a flu vaccine this season?: Yes Other Medical History: Reports: Arthritis, Sinus Problems Other Surgeries: Yes: Cardiac Catheterization, Cardiac Surgery, Colonoscopy, Coronary Stent, Open Heart Surgery, Sinus Surgery Amputation: No Fractures: No - *Social History Educational Level: Completed High School Smoking Status: Former smoker Tobacco Type: cigarettes # Packs/Day (cigarettes): 2 #Yrs smoked (if former smoker): 15 Alcohol Intake: never *Occupational Status:: disabled Housing: house Household Members: none *Travel in the last 8 weeks: None Family Hx:: No significant family history Meds Home Medications Medication Instructions Recorded Confirmed Type Insulin Aspart [Novolog Flexpen] 0 units SQ ACHS 02/26/18 05/28/19 History Umeclidinium Brm/Vilanterol Tr 1 each IH DAILY 02/26/18 05/28/19 History [Anoro Ellipta 62.5-25 Mcg INH] lisinopriL [Lisinopril 20mg Tab] 20 mg PO BID 02/26/18 05/28/19 History Montelukast Sodium [Montelukast 10 mg PO DAILY 09/13/18 05/28/19 History 10mg Tab] dilTIAZem HCL [Cardizem 180mg ER 180 mg PO BID 04/11/19 05/28/19 History Cap] Aspirin [Aspir 81] 81 mg PO DAILY 05/28/19 05/28/19 History Azelastine HCl [Azelastine Nasal 137 mcg NS BID 05/28/19 05/28/19 History [place] 30mL Bottle] Fluticasone Furoate [Flonase 1 spray NS BID 05/28/19 05/28/19 History Sensimist] Furosemide [Furosemide 40MG tAB] 40 mg PO DAILY 05/28/19 05/28/19 History Metformin HCl [Metformin 1000mg 1,000 mg PO BID 05/28/19 05/28/19 History Tablets] [place]-3 Fatty Acids [Fish Oil] 300 mg PO TID 05/28/19 05/28/19 History allopurinoL [Allopurinol 100mg 100 mg PO BID 05/28/19 05/28/19 History tablet] Allergies Allergy/AdvReac Type Severity Reaction Status Date / Time Xvqmzrs-Use-Rxu Reductase Allergy Unknown MUSCLE Verified 04/11/19 09:42 Inhibitor WEAKNESS [ULIDZUI-QSA-UNP REDUCTASE INHIBITOR] atorvastatin [From Lipitor] Allergy Verified 04/11/19 09:42 Review of Systems - Review of Systems Review of systems:: pertinent systems reviewed and negative unless documented below - *Cardiovascular Reports leg swelling, Reports fast heart rate, Denies chest pain - *Respiratory Reports cough, Reports shortness of breath - *Gastrointestinal Denies loose stools, Denies nausea, Denies vomiting - *Genitourinary Denies blood in urine - *Musculoskeletal Denies joint pain, Denies back pain - *Neurologic Reports weakness, Denies dizziness Exam Vital signs and Labs for Last 24 Hours: Temp Pulse Resp BP Pulse Ox 97.8 F 132 H 24 153/81 H 96 05/28/19 10:31 05/28/19 12:36 05/28/19 12:36 05/28/19 12:36 05/28/19 12:36 Laboratory Results - last 24 hr 05/28/19 10:50: WBC 14.1 H, RBC 4.24 L, Hgb 11.8 L, Hct 37.9 L, MCV 89.5, MCH 28.0, MCHC 31.2 L, RDW 14.1, Plt Count 371, MPV 8.3, Neut % (Auto) 74.0, Lymph % (Auto) 18.4, [place] % (Auto) 4.5, Eos % (Auto) 2.8, Baso % (Auto) 0.3, Neut # (Auto) 10.4 H, Lymph # (Auto) 2.6, [place] # (Auto) 0.6, Eos # (Auto) 0.4, Baso # (Auto) 0.1 05/28/19 10:50: Sodium 141, Potassium 4.2, Chloride 104, Carbon Dioxide 23, Anion Gap 18.2 H, BUN 19 H, Creatinine 1.11, Estimated Creat Clear 57, Estimated GFR 64, Est GFR ( Amer) 78, Glucose 75, Calcium 8.8, Magnesium 1.7, Total Bilirubin 0.2, AST 26, ALT 48, Alkaline Phosphatase 73, Total Protein 7.0, Albumin 3.4, Globulin 3.6 H, Albumin/Globulin Ratio 0.9 L 05/28/19 10:50: Troponin I < 0.02 05/28/19 10:50: Troponin I Cancelled 05/28/19 10:50: B-Natriuretic Peptide 250 H 05/28/19 12:12: Lactate 2.1 H 05/28/19 12:24: POC Glucose 98 I & O for Last 24 hours: Intake & Output 05/26/19 05/27/19 05/28/19 05/29/19 11:59 11:59 11:59 11:59 Weight 291 lb 3 oz - *Routine HEENT Exam Head: Present: normocephalic Eye: Present: EOMI, PERRL ENT: Present: mucous membranes moist - *Routine Neck Exam Present: supple. Absent: JVD, carotid bruit - *Routine Respiratory Exam Present: CTA bilaterally, rales. Absent: accessory muscle use, rhonchi, wheezes - *Routine Cardiovascular Exam Present: tachycardia, irregularly irregular. Absent: murmur, gallop, rubs - *Routine Abdominal Exam Present: soft, obese. Absent: tenderness, distended, guarding - *Routine Extremities Exam Present: edema. Absent: calf tenderness - *Routine Neurological Exam Present: alert, oriented X3, moving all extremities Assessment and Plan (1) CHF (congestive heart failure), NYHA class IV Current visit: Yes Status: Acute Qualifiers: Congestive heart failure type: combined Congestive heart failure chronicity: acute on chronic Qualified Code(s): I50.43 - Acute on chronic combined systolic (congestive) and diastolic (congestive) heart failure Category: Medical Code(s): I50.9 - Heart failure, unspecified 1. Continue IV Lasix 80 mg twice daily and monitor renal status closely 2. We will try to wean off Cardizem as CHF improves as it is contraindicated in cardiomyopathy. Switch to beta-araseli therapy 3. Add digoxin 4. Continue lisinopril (2) A-fib Current visit: No Status: Chronic Qualifiers: Atrial fibrillation type: chronic Category: Medical Code(s): I48.91 - Unspecified atrial fibrillation 1. Try to gain rate control with combination of beta-araseli and digoxin therapy 2. If patient is unable to take anticoagulation due to recurrent GI bleed and anemia, then would recommend referral for watchman device (3) Coronary artery disease Current visit: No Status: Chronic Category: Medical Code(s): I25.10 - Atherosclerotic heart disease of [place] coronary artery without angina pectoris initial troponin normal consider further evaluation once rate controlled and PE adequately treated (4) Diabetes Current visit: No Status: Chronic Category: Medical Code(s): E11.9 - Type 2 diabetes mellitus without complications (5) History of DVT (deep vein thrombosis) Current visit: No Status: Chronic Category: Medical Code(s): Z86.718 - Personal history of other venous thrombosis and embolism (6) Hyperlipidemia Current visit: No Status: Chronic Category: Medical Code(s): E78.5 - Hyperlipidemia, unspecified (7) Hypertension Current visit: No Status: Chronic Category: Medical Code(s): I10 - Essential (primary) hypertension (8) Obstructive sleep apnea Current visit: No Status: Chronic Category: Medical Code(s): G47.33 - Obs tructive sleep apnea (adult) (pediatric) (9) Anemia Current visit: No Status: Ruled-out Qualifiers: Anemia type: other cause Other causes of anemia: acute posthemorrhagic Qualified Code(s): D62 - Acute posthemorrhagic anemia Category: Medical Code(s): D64.9 - Anemia, unspecified (10) Presence of IVC filter Current visit: Yes Status: Acute Category: Medical Code(s): Z95.828 - Presence of other vascular implants and grafts (11) Pulmonary embolus Current visit: Yes Status: Acute Category: Medical Code(s): I26.99 - Other pulmonary embolism without acute cor pulmonale Unsure if this is new or old but pt has IVC filter in place. Will change lovenox to therapeutic dosing for now. - Assessment and plan all Dx Assessment and Plan for all problems:: 1. Start IV digoxin loading 2. Start bisoprolol for rate control in setting of A. fib with RVR, CAD/CABG/Cardiomyopathy and wean off cardizem as able. 3. Therapeutic lovenox dosing due to PE. IVC filter in place. 4. Check Echo once HR <100 bpm consistently 5. Continue IV lasix with renal monitoring 6. Bilateral venous dopplers to assess for DVT in setting of PE on CTA. Prior CT of chest last year was concerning for RUL mass ?Cancer.
--- NOTE | 2019-05-28 13:52 | History & Physical Report ---
*Admission Date: 05/28/19 *Chief complaint: SOA, orthopnea *History of present illness: Mr. Lynch once a 74-year-old male who initially presented to clinic this morning with worsening shortness of breath and palpitations over the past 1 to 2 weeks. Assessment in clinic showed concern for irregularly irregular tachycardia with EKG concerning for A. fib with RVR. Given dyspnea, report orthopnea, and tachyarrhythmia, ambulance was called to transport patient for direct admission to the hospital for further management. Cardiology was consulted to assist with further treatment. Of note patient has multiple comorbidities, per history, including recent GI bleeds necessitating cessation of his anticoagulation for A. fib, placement of an IVC filter, and status post colonoscopy revealing diverticulosis. Patient's atrial fibrillation has gradually become uncontrolled with a recent admission last year for significant bradycardia that resolved with holding his beta- araseli and reducing Cardizem dosing. Patient does have a cardiomyopathy by echocardiogram last year with an ejection fraction of approximately 40% with wall motion abnormalities consistent with prior [place] and bypass surgery. The patient states his CPAP machine has been out of order over the last week and he has noticed increasing episodes of fast heart rate with increased lower extremity edema and increased shortness of breath, significantly worse with laying flat necessitating use of multiple pillows to sleep comfortably. On admission he was initiated on diuretics with significant diuresis of approximately a liter and initial improvement in respiratory status. He was also started on Cardizem to treat his A. fib with RVR. Upon assessment this afternoon, patient appears more comfortable and no longer in extremis. Was sitting comfortably in bedside chair with son in the room. Both were updated on the plan. [facility] History I have reviewed the patient's past medical history: Yes Medical History: Reports:: Atrial Fibrillation, Congestive Heart Failure, Coronary Artery Disease, Deep Vein Thrombosis, Diabetes Mellitus Type 2, Hyperlipidemia, Hypertension, Myocardial Infarction Denies:: Cancer, Diabetes Mellitus Type 1, MRSA *Have you ever received a pneumonia vaccine?: Yes *Have you received a flu vaccine this season?: Yes Other Medical History: Reports: Arthritis, Sinus Problems Other Surgeries: Yes: Cardiac Catheterization, Cardiac Surgery, Colonoscopy, Coronary Stent, Open Heart Surgery, Sinus Surgery Amputation: No Fractures: No - *Social History Educational Level: Completed High School Smoking Status: Former smoker Tobacco Type: cigarettes # Packs/Day (cigarettes): 2 #Yrs smoked (if former smoker): 15 Alcohol Intake: never *Occupational Status:: disabled Housing: house Household Members: none *Travel in the last 8 weeks: None Family Hx:: No significant family history Review of Systems - Review of Systems Review of systems:: pertinent systems reviewed and negative unless documented below (14 point review of systems performed, pertinent positives and negatives as per HPI) - *Neurologic Reports weakness, Denies dizziness Meds Home Medications Medication Instructions Recorded Confirmed Type Insulin Aspart [Novolog Flexpen] 0 units SQ ACHS 02/26/18 05/28/19 History Umeclidinium Brm/Vilanterol Tr 1 each IH DAILY 02/26/18 05/28/19 History [Anoro Ellipta 62.5-25 Mcg INH] lisinopriL [Lisinopril 20mg Tab] 20 mg PO BID 02/26/18 05/28/19 History Montelukast Sodium [Montelukast 10 mg PO DAILY 09/13/18 05/28/19 History 10mg Tab] dilTIAZem HCL [Cardizem 180mg ER 180 mg PO BID 04/11/19 05/28/19 History Cap] Aspirin [Aspir 81] 81 mg PO DAILY 05/28/19 05/28/19 History Azelastine HCl [Azelastine Nasal 137 mcg NS BID 05/28/19 05/28/19 History [place] 30mL Bottle] Fluticasone Furoate [Flonase 1 spray NS BID 05/28/19 05/28/19 History Sensimist] Furosemide [Furosemide 40MG tAB] 40 mg PO DAILY 05/28/19 05/28/19 History Metformin HCl [Metformin 1000mg 1,000 mg PO BID 05/28/19 05/28/19 History Tablets] [place]-3 Fatty Acids [Fish Oil] 300 mg PO TID 05/28/19 05/28/19 History allopurinoL [Allopurinol 100mg 100 mg PO BID 05/28/19 05/28/19 History tablet] Allergies Allergy/AdvReac Type Severity Reaction Status Date / Time Ayztdxw-Nst-Lma Reductase Allergy Unknown MUSCLE Verified 04/11/19 09:42 Inhibitor WEAKNESS [[id number] REDUCTASE INHIBITOR] atorvastatin [From Lipitor] Allergy Verified 04/11/19 09:42 Exam Vital signs and Labs for Last 24 Hours: Temp Pulse Resp BP Pulse Ox 97.8 F 132 H 24 153/81 H 96 05/28/19 10:31 05/28/19 12:36 05/28/19 12:36 05/28/19 12:36 05/28/19 12:36 Laboratory Results - last 24 hr 05/28/19 10:50: WBC 14.1 H, RBC 4.24 L, Hgb 11.8 L, Hct 37.9 L, MCV 89.5, MCH 28.0, MCHC 31.2 L, RDW 14.1, Plt Count 371, MPV 8.3, Neut % (Auto) 74.0, Lymph % (Auto) 18.4, Giles % (Auto) 4.5, Eos % (Auto) 2.8, Baso % (Auto) 0.3, Neut # (Auto) 10.4 H, Lymph # (Auto) 2.6, [place]iles # (Auto) 0.6, Eos # (Auto) 0.4, Baso # (Auto) 0.1 05/28/19 10:50: Sodium 141, Potassium 4.2, Chloride 104, Carbon Dioxide 23, Anion Gap 18.2 H, BUN 19 H, Creatinine 1.11, Estimated Creat Clear 57, Estimated GFR 64, Est GFR ( Amer) 78, Glucose 75, Calcium 8.8, Magnesium 1.7, Total Bilirubin 0.2, AST 26, ALT 48, Alkaline Phosphatase 73, Total Protein 7.0, Albumin 3.4, Globulin 3.6 H, Albumin/Globulin Ratio 0.9 L 05/28/19 10:50: Troponin I < 0.02 05/28/19 10:50: Troponin I Cancelled 05/28/19 10:50: B-Natriuretic Peptide 250 H 05/28/19 12:12: Lactate 2.1 H 05/28/19 12:24: POC Glucose 98 I & O for Last 24 hours: Intake & Output 05/25/19 05/26/19 05/27/19 05/28/19 23:59 23:59 23:59 23:59 Output Total 1000 / 1000 Balance -1000 / -1000 Weight 132.08 kg - Constitutional mild distress, morbidly obese - *Routine HEENT Exam Head: Present: normocephalic Eye: Present: EOMI, PERRL ENT: Present: mucous membranes moist Comments: Occlusion of left nasal passage - *Routine Neck Exam Present: supple, JVD. Absent: lymphadenopathy - *Routine Respiratory Exam Present: accessory muscle use, crackles (Bilateral posterior lung daniels in the bases). Absent: wheezes - *Routine Cardiovascular Exam Present: tachycardia, irregularly irregular, JVD. Absent: murmur - *Routine Abdominal Exam Present: soft (Protuberant), normoactive bowel sounds. Absent: tenderness - *Routine Extremities Exam Present: edema (3+ edema right lower extremity to his knee with well-healed scar from vein graft harvest, left leg with 2+ edema to the knee). Absent: cyanosis, clubbing - *Routine Skin Exam Present: pallor, warm. Absent: rash - *Routine Neurological Exam Present: alert, oriented X3, normal speech (Patient speech at baseline, nasally voice consistent with his chronic sinus issues) Assessment and Plan (1) CHF (congestive heart failure), NYHA class IV Current visit: Yes Status: Acute Qualifiers: Congestive heart failure type: combined Congestive heart failure chronicity: acute on chronic Qualified Code(s): I50.43 - Acute on chronic combined systolic (congestive) and diastolic (congestive) heart failure Category: Medical Code(s): I50.9 - Heart failure, unspecified (2) A-fib Current visit: No Status: Chronic Qualifiers: Atrial fibrillation type: chronic Category: Medical Code(s): I48.91 - Unspecified atrial fibrillation (3) Coronary artery disease Current visit: No Status: Chronic Category: Medical Code(s): I25.10 - Atherosclerotic heart disease of [place] coronary artery without angina pectoris (4) Diabetes Current visit: No Status: Chronic Qualifiers: Diabetes mellitus type: type 2 Category: Medical Code(s): E11.9 - Type 2 diabetes mellitus without complications Sliding scale insulin with fingersticks before meals and at bedtime. (5) History of DVT (deep vein thrombosis) Current visit: No Status: Chronic Category: Medical Code(s): Z86.718 - Personal history of other venous thrombosis and embolism (6) Hyperlipidemia Current visit: No Status: Chronic Category: Medical Code(s): E78.5 - Hyperlipidemia, unspecified (7) Hypertension Current visit: No Status: Chronic Category: Medical Code(s): I10 - Essential (primary) hypertension (8) Obstructive sleep apnea Current visit: No Status: Chronic Category: Medical Code(s): G47.33 - Obstructive sleep apnea (adult) (pediatric) (9) Anemia Current visit: No Status: Ruled-out Qualifiers: Anemia type: other cause Other causes of anemia: acute posthemorrhagic Qualified Code(s): D62 - Acute posthemorrhagic anemia Category: Medical Code(s): D64.9 - Anemia, unspecified (10) Presence of IVC filter Current visit: Yes Status: Acute Category: Medical Code(s): Z95.828 - Presence of other vascular implants and grafts (11) Class 3 severe obesity due to excess calories in adult Current visit: Yes Status: Chronic Qualifiers: Serious obesity comorbidity presence: with serious comorbidity Body mass index: BMI 40.0-44.9 Qualified Code(s): E66.01 - Morbid (severe) obesity due to excess calories; Z68.41 - Body mass index (BMI) 40.0-44.9, adult Category: Medical Code(s): E66.01 - Morbid (severe) obesity due to excess calories Complicates all aspects of his care (12) Lower extremity edema Start date: 05/28/19 Current visit: Yes Status: Acute Category: Medical Code(s): R60.0 - Localized edema (13) Pulmonary embolus Current visit: Yes Status: Acute Qualifiers: Pulmonary embolism type: single subsegmental (without acute cor pulmonale) Qualified Code(s): I26.93 - Single subsegmental pulmonary embolism without acute cor pulmonale Category: Medical Code(s): I26.99 - Other pulmonary embolism without acute cor pulmonale Suspected on CT angiogram, initiate Lovenox. Has Riya filter in place, f urther assessment with echo to look for heart strain. - Assessment and plan all Dx Assessment and Plan for all problems:: 74-year-old male who presents from clinic with concern for CHF exacerbation and A. fib with RVR. Significant volume overload apparent on chest x-ray with cephalization of vasculature, fluid in fissure, and bilateral lower lobe opacification. Aggressive diuresis. Initiated on Cardizem drip and digoxin. Cardiology consulted, appreciate recommendations. Echocardiogram delayed at this time pending improvement in heart rate control. Repeat labs this evening to assess for electrolyte abnormalities given aggressive diuresis. Additionally will assess thyroid function as patient is hypothyroid per history. Patient critically ill, prognosis poor. Full code. Diabetic diet. Further management pending response to rate control and diuresis. Additionally, met criteria on admission for suspected sepsis with tachycardia, elevated white count, and abnormal chest x-ray in the setting of elevated lactate however patient's heart rate can be explained by his A. fib with RVR and suspected abnormalities due to CHF exacerbation not infection. Initiated empirically on antibiotics with cultures obtained however anticipate 48 hours of empiric coverage with de- escalation pending culture results and improvement in symptoms with treatment of CHF.
--- NOTE | 2019-05-28 14:27 | Consult Report ---
*Admission Date: 05/28/19 <Alice Elizabeth - 05/28/19 16:22> *Reason for consult:: Diabetic foot evalualtion and nail trim <Alice Elizabeth 05/28/19 16:22> *History of present illness: 74- year old male admitted Tuesday, May 28, 2019 for SOA and orthopnea. The patient was originally on our Podiatry schedule for a new patient routine diabetic foot evaluation and nail trimming when he felt short of breath and decided to cancel our appointment and follow up with his PCP. [facility] History I have reviewed the patient's past medical history: Yes Medical History: Reports:: Atrial Fibrillation, Congestive Heart Failure, Coronary Artery Disease, Deep Vein Thrombosis, Diabetes Mellitus Type 2, Hyperlipidemia, Hypertension, Myocardial Infarction Denies:: Cancer, Diabetes Mellitus Type 1, MRSA *Have you ever received a pneumonia vaccine?: Yes *Have you received a flu vaccine this season?: Yes Other Medical History: Reports: Arthritis, Sinus Problems Other Surgeries: Yes: Cardiac Catheterization, Cardiac Surgery, Colonoscopy, Coronary Stent, Open Heart Surgery, Sinus Surgery Amputation: No Fractures: No - *Social History Educational Level: Completed High School Smoking Status: Former smoker Tobacco Type: cigarettes # Packs/Day (cigarettes): 2 #Yrs smoked (if former smoker): 15 Alcohol Intake: never *Occupational Status:: disabled Housing: house Household Members: none *Travel in the last 8 weeks: None Family Hx:: No significant family history <Alice Elizabeth 05/28/19 16:22> Review of Systems - Constitutional Reports lack of energy, Reports weakness <JacobdelmisAlice Morgan 05/28/19 16:22> - Eyes Denies blurry vision <JacobdelmisAlice Morgan 05/28/19 16:22> - ENT Denies abnormal hearing <ClaraAlice Morgan 05/28/19 16:22> - *Cardiovascular Reports leg swelling, Reports shortness of breath when lying down <ClaraAlice L 05/28/19 16:22> - *Respiratory Reports shortness of breath with activity <Alice Elizabeth 05/28/19 16:22> - *Gastrointestinal Denies abdominal pain <Alice Elizabeth 05/28/19 16:22> - *Genitourinary Denies difficulty urinating <Alice Elizabeth 05/28/19 16:22> - *Musculoskeletal Denies numbness, Denies tingling <Alice Elizabeth 05/28/19 16:22> - *Neurologic Reports weakness, Denies dizziness <Alice Elizabeth 05/28/19 16:22> - Psychiatric Denies anxiety <Alice Elizabeth 05/28/19 16:22> [facility] History I have reviewed the patient's past medical history: Yes <Alice Elizabeth 05/28/19 16:22> Medical History: Reports:: Atrial Fibrillation, Congestive Heart Failure, Coronary Artery Disease, Deep Vein Thrombosis, Diabetes Mellitus Type 2, Hyperlipidemia, Hypertension, Myocardial Infarction Denies:: Cancer, Diabetes Mellitus Type 1, MRSA <Alice Elizabeth 05/28/19 16:22> *Have you ever received a pneumonia vaccine?: Yes <Alice Elizabeth 05/28/19 16:22> *Have you received a flu vaccine this season?: Yes <Alice Elizabeth 05/28/19 16:22> Other Medical History: Reports: Arthritis, Sinus Problems <Alice Elizabeth 05/28/19 16:22> Other Surgeries: Yes: Cardiac Catheterization, Cardiac Surgery, Colonoscopy, Coronary Stent, Open Heart Surgery, Sinus Surgery <Alice Elizabeth 05/28/19 16:22> Amputation: No <Alice Elizabeth 05/28/19 16:22> Fractures: No <Alice Elizabeth 05/28/19 16:22> - *Social History Educational Level: Completed High School <Alice Elizabeth 05/28/19 16:22> Smoking Status: Former smoker <Alice Elizabeth 05/28/19 16:22> Tobacco Type: cigarettes <Alice Elizabeth 05/28/19 16:22> # Packs/Day (cigarettes): 2 <Alice Elizabeth 05/28/19 16:22> #Yrs smoked (if former smoker): 15 <Alice Elizabeth 05/28/19 16:22> Alcohol Intake: never <Alice Elizabeth Morgan 05/28/19 16:22> *Occupational Status:: disabled <Alice Elizabeth Morgan 05/28/19 16:22> Housing: house <Alice Elizabeth Morgan 05/28/19 16:22> Household Members: none <Alice Elizabeth Morgan 05/28/19 16:22> *Travel in the last 8 weeks: None <Alice Elizabeth Morgan 05/28/19 16:22> Family Hx:: No significant family history <Alice Elizabeth Morgan 05/28/19 16:22> Meds Home Medications Medication Instructions Recorded Confirmed Type Insulin Aspart [Novolog Flexpen] 0 units SQ ACHS 02/26/18 05/28/19 History Umeclidinium Brm/Vilanterol Tr 1 each IH DAILY 02/26/18 05/28/19 History [Anoro Ellipta 62.5-25 Mcg INH] lisinopriL [Lisinopril 20mg Tab] 20 mg PO BID 02/26/18 05/28/19 History Montelukast Sodium [Montelukast 10 mg PO DAILY 09/13/18 05/28/19 History 10mg Tab] dilTIAZem HCL [Cardizem 180mg ER 180 mg PO BID 04/11/19 05/28/19 History Cap] Aspirin [Aspir 81] 81 mg PO DAILY 05/28/19 05/28/19 History Azelastine HCl [Azelastine Nasal 137 mcg NS BID 05/28/19 05/28/19 History [place] 30mL Bottle] Fluticasone Furoate [Flonase 1 spray NS BID 05/28/19 05/28/19 History Sensimist] Furosemide [Furosemide 40MG tAB] 40 mg PO DAILY 05/28/19 05/28/19 History Metformin HCl [Metformin 1000mg 1,000 mg PO BID 05/28/19 05/28/19 History Tablets] [place]-3 Fatty Acids [Fish Oil] 300 mg PO TID 05/28/19 05/28/19 History allopurinoL [Allopurinol 100mg 100 mg PO BID 05/28/19 05/28/19 History tablet] <SusanBirgit - 05/28/19 17:04> Allergies Allergy/AdvReac Type Severity Reaction Status Date / Time Wpwkmom-Bpx-Beo Reductase Allergy Unknown MUSCLE Verified 04/11/19 09:42 Inhibitor WEAKNESS [[id number] REDUCTASE INHIBITOR] atorvastatin [From Lipitor] Allergy Verified 04/11/19 09:42 <Birgit Davis - 05/28/19 17:04> Exam Vital signs and Labs for Last 24 Hours: Temp Pulse Resp BP Pulse Ox 98.6 F 89 23 142/83 H 94 L 05/28/19 16:00 05/28/19 16:00 05/28/19 16:00 05/28/19 16:00 05/28/19 16:00 Laboratory Results - last 24 hr 05/28/19 10:50: WBC 14.1 H, RBC 4.24 L, Hgb 11.8 L, Hct 37.9 L, MCV 89.5, MCH 28.0, MCHC 31.2 L, RDW 14.1, Plt Count 371, MPV 8.3, Neut % (Auto) 74.0, Lymph % (Auto) 18.4, Hall % (Auto) 4.5, Eos % (Auto) 2.8, Baso % (Auto) 0.3, Neut # (Auto) 10.4 H, Lymph # (Auto) 2.6, Hall # (Auto) 0.6, Eos # (Auto) 0.4, Baso # (Auto) 0.1 05/28/19 10:50: Sodium 141, Potassium 4.2, Chloride 104, Carbon Dioxide 23, Anion Gap 18.2 H, BUN 19 H, Creatinine 1.11, Estimated Creat Clear 57, Estimated GFR 64, Est GFR ( Amer) 78, Glucose 75, Calcium 8.8, Magnesium 1.7, Total Bilirubin 0.2, AST 26, ALT 48, Alkaline Phosphatase 73, Total Protein 7.0, Albumin 3.4, Globulin 3.6 H, Albumin/Globulin Ratio 0.9 L 05/28/19 10:50: Troponin I < 0.02 05/28/19 10:50: Troponin I Cancelled 05/28/19 10:50: B-Natriuretic Peptide 250 H 05/28/19 10:50: TSH 0.26 L, Free T4 Index 3.2 L, Thyroxine (T4) 8.3, T3 Uptake 39 05/28/19 12:12: Lactate 2.1 H 05/28/19 12:24: POC Glucose 98 05/28/19 16:07: Troponin I 0.13 H 05/28/19 16:33: Lactate 1.8 <Birgit Davis - 05/28/19 17:04> Temp Pulse Resp BP Pulse Ox 97.8 F 117 H 24 153/81 H 96 05/28/19 10:31 05/28/19 13:57 05/28/19 12:36 05/28/19 12:36 05/28/19 12:36 Laboratory Results - last 24 hr 05/28/19 10:50: WBC 14.1 H, RBC 4.24 L, Hgb 11.8 L, Hct 37.9 L, MCV 89.5, MCH 28.0, MCHC 31.2 L, RDW 14.1, Plt Count 371, MPV 8.3, Neut % (Auto) 74.0, Lymph % (Auto) 18.4, Hall % (Auto) 4.5, Eos % (Auto) 2.8, Baso % (Auto) 0.3, Neut # (Auto) 10.4 H, Lymph # (Auto) 2.6, Hall # (Auto) 0.6, Eos # (Auto) 0.4, Baso # (Auto) 0.1 05/28/19 10:50: Sodium 141, Potassium 4.2, Chloride 104, Carbon Dioxide 23, Anion Gap 18.2 H, BUN 19 H, Creatinine 1.11, Estimated Creat Clear 57, Estimated GFR 64, Est GFR ( Amer) 78, Glucose 75, Calcium 8.8, Magnesium 1.7, Total Bilirubin 0.2, AST 26, ALT 48, Alkaline Phosphatase 73, Total Protein 7.0, [place] min 3.4, Globulin 3.6 H, Albumin/Globulin Ratio 0.9 L 05/28/19 10:50: Troponin I < 0.02 05/28/19 10:50: Troponin I Cancelled 05/28/19 10:50: B-Natriuretic Peptide 250 H 05/28/19 12:12: Lactate 2.1 H 05/28/19 12:24: POC Glucose 98 <Alice Elizabeth - 05/28/19 16:22> I & O for Last 24 hours: Intake & Output 05/26/19 05/27/19 05/28/19 05/29/19 11:59 11:59 11:59 11:59 Intake Total 480 / 480 Output Total 1350 / 1350 Balance -870 / -870 Weight 291 lb 3 oz <Birgit Davis - 05/28/19 17:04> Intake & Output 05/25/19 05/26/19 05/27/19 05/28/19 23:59 23:59 23:59 23:59 Intake Total 240 / 240 Output Total 1000 / 1000 Balance -760 / -760 Weight 291 lb 3 oz <Alice Elizabeth - 05/28/19 16:22> - *Routine Neck Exam Present: supple. Absent: lymphadenopathy <Alice Elizabeth - 05/28/19 16:22> - *Routine Respiratory Exam Present: CTA bilaterally. Absent: accessory muscle use, respiratory distress <Alice Elizabeth - 05/28/19 16:22> - *Routine Cardiovascular Exam Present: tachycardia. Absent: JVD <Alice Elizabeth - 05/28/19 16:22> - *Routine Abdominal Exam Absent: guarding <Alice Elizabeth - 05/28/19 16:22> - *Routine Extremities Exam Present: edema, pulses intact. Absent: cyanosis, calf tenderness <Alice Elizabeth - 05/28/19 16:22> - *Routine Skin Exam Present: dry, warm. Absent: rash <Alice Elizabeth - 05/28/19 16:22> - *Routine Neurological Exam Present: oriented X3, moving all extremities, normal speech <Alice Elizabeth - 05/28/19 16:22> - Routine Psychiatric Exam Present: normal affect, cooperative <Alice Elizabeth - 05/28/19 16:22> - Detailed Lower Extremity Exam Lower leg: Bilateral swelling <Alice Elizabeth - 05/28/19 16:22> Ankle: Bilateral swelling <Alice Elizabeth - 05/28/19 16:22> Comments: Moderate dorsal medial eminence noted bilaterally. Valgus rotation noted to the toes. Decreased dorsiflexion bilaterally. No pain to the sesamoid apparatus and with stretch of the lateral capsule. Stable first metatarsal cuneiform joint range of motion, non hypermobile first ray. Semi-rigid PIPJ contractures noted on digits 2-4. Adductovarus rotation noted to the fifth digit bilaterally. Palpable pedal pulses b/l LE. Multiple areas of hyperpigmentation to b/l LE. No open lesions. Nails 1-10 thick, yellow, dystrophic with subungal debris noted. <Birgit Davis - 05/28/19 17:04> Results - Labs Result Diagrams: 05/28/19 10:50 05/28/19 10:50 <Birgit Davis - 05/28/19 17:04> Labs: Abnormal lab results 05/28/19 05/28/19 05/28/19 Range/Units 10:50 10:50 10:50 WBC 14.1 H (4.8-10.8) K/mm3 RBC 4.24 L (4.60-6.20) M/mm3 Hgb 11.8 L (14.1-18.0) g/dL Hct 37.9 L (42.0-52.0) % MCHC 31.2 L (31.8-35.4) g/dL Neut # (Auto) 10.4 H (1.8-7.8) K/mm3 Anion Gap 18.2 H (5-15) mEq/L BUN 19 H (7-18) mg/dL Lactate (0.4-2.0) mmol/L Troponin I (0.00-0.06) ng/ml B-Natriuretic Peptide 250 H (0-100) pg/mL Globulin 3.6 H (1.3-3.2) gm/dl Albumin/Globulin Ratio 0.9 L (1.1-1.8) TSH (0.358-3.740) uIU/ml Free T4 Index (5.93-13.13) ug/dL 05/28/19 05/28/19 05/28/19 Range/Units 10:50 12:12 16:07 WBC (4.8-10.8) K/mm3 RBC (4.60-6.20) M/mm3 Hgb (14.1-18.0) g/dL Hct (42.0-52.0) % MCHC (31.8-35.4) g/dL Neut # (Auto) (1.8-7.8) K/mm3 Anion Gap (5-15) mEq/L BUN (7-18) mg/dL Lactate 2.1 H (0.4-2.0) mmol/L Troponin I 0.13 H (0.00-0.06) ng/ml B-Natriuretic Peptide (0-100) pg/mL Globulin (1.3-3.2) gm/dl Albumin/Globulin Ratio (1.1-1.8) TSH 0.26 L (0.358-3.740) uIU/ml Free T4 Index 3.2 L (5.93-13.13) ug/dL H & H 05/28/19 Range/Units 10:50 Hgb 11.8 L (14.1-18.0) g/dL Hct 37.9 L (42.0-52.0) % All other labs normal. <Birgit Davis - 05/28/19 17:04> Abnormal lab results 05/28/19 05/28/19 05/28/19 Range/Units 10:50 10:50 10:50 WBC 14.1 H (4.8-10.8) K/mm3 RBC 4.24 L (4.60-6.20) M/mm3 Hgb 11.8 L (14.1-18.0) g/dL Hct 37.9 L (42.0-52.0) % MCHC 31.2 L (31.8-35.4) g/dL Neut # (Auto) 10.4 H (1.8-7.8) K/mm3 Anion Gap 18.2 H (5-15) mEq/L BUN 19 H (7-18) mg/dL Lactate (0.4-2.0) mmol/L B-Natriuretic Peptide 250 H (0-100) pg/mL Globulin 3.6 H (1.3-3.2) gm/dl Albumin/Globulin Ratio 0.9 L (1.1-1.8) 05/28/19 Range/Units 12:12 WBC (4.8-10.8) K/mm3 RBC (4.60-6.20) M/mm3 Hgb (14.1-18.0) g/dL Hct (42.0-52.0) % MCHC (31.8-35.4) g/dL Neut # (Auto) (1.8-7.8) K/mm3 Anion Gap (5-15) mEq/L BUN (7-18) mg/dL Lactate 2.1 H (0.4-2.0) mmol/L B-Natriuretic Peptide (0-100) pg/mL Globulin (1.3-3.2) gm/dl Albumin/Globulin Ratio (1.1-1.8) H & H 05/28/19 Range/Units 10:50 Hgb 11.8 L (14.1-18.0) g/dL Hct 37.9 L (42.0-52.0) % All other labs normal. <Alice Elizabeth - 05/28/19 16:22> Assessment and Plan (1) CHF (congestive heart failure), NYHA class IV Current visit: Yes Status: Acute Qualifiers: Congestive heart failure type: combined Congestive heart failure chronicity: acute on chronic Qualified Code(s): I50.43 - Acute on chronic combined systolic (congestive) and diastolic (congestive) heart failure Category: Medical Code(s): I50.9 - Heart failure, unspecified (2) A-fib Current visit: No Status: Chronic Qualifiers: Atrial fibrillation type: chronic Category: Medical Code(s): I48.91 - Unspecified atrial fibrillation (3) Coronary artery disease Current visit: No Status: Chronic Category: Medical Code(s): I25.10 - Atherosclerotic heart disease of [place] coronary artery without angina pectoris (4) Diabetes Current visit: No Status: Chronic Category: Medical Code(s): E11.9 - Type 2 diabetes mellitus without complications (5) History of DVT (deep vein thrombosis) Current visit: No Status: Chronic Category: Medical Code(s): Z86.718 - Personal history of other venous thrombosis and embolism (6) Hyperlipidemia Current visit: No Status: Chronic Category: Medical Code(s): E78.5 - Hyperlipidemia, unspecified (7) Hypertension Current visit: No Status: Chronic Category: Medical Code(s): I10 - Essential (primary) hypertension (8) Obstructive sleep apnea Current visit: No Status: Chronic Category: Medical Code(s): G47.33 - Obstructive sleep apnea (adult) (pediatric) (9) Anemia Current visit: No Status: Ruled-out Qualifiers: Anemia type: other cause Other causes of anemia: acute posthemorrhagic Qualified Code(s): D62 - Acute posthemorrhagic anemia Category: Medical Code(s): D64.9 - Anemia, unspecified (10) Presence of IVC filter Current visit: Yes Status: Acute Category: Medical Code(s): Z95.828 - Presence of other vascular implants and grafts (11) Pulmonary embolus Current visit: Yes Status: Acute Category: Medical Code(s): I26.99 - Other pulmonary embolism without acute cor pulmonale (12) Onychogryphosis Start date: 05/28/19 Current visit: Yes Status: Acute Category: Medical Code(s): L60.2 - Onychogryphosis (13) Onychomycosis Start date: 05/28/19 Current visit: Yes Status: Acute Category: Medical Code(s): B35.1 - Tinea unguium (14) Lower extremity edema Start date: 05/28/19 Current visit: Yes Status: Acute Category: Medical Code(s): R60.0 - Localized edema (15) Acquired hallux valgus Start date: 05/28/19 Current visit: Yes Status: Acute Category: Medical Code(s): M20.10 - Hallux valgus (acquired), unspecified foot (16) Osteoarthritis Start date: 05/28/19 Current visit: Yes Status: Acute Category: Medical Code(s): M19.90 - Unspecified osteoarthritis, unspecified site (17) Diabetic foot Start date: 05/28/19 Current visit: Yes Status: Acute Category: Medical Code(s): E11.8 - Type 2 diabetes mellitus with unspecified complications <Alice Elizabeth - 05/28/19 14:11> (1) CHF (congestive heart failure), NYHA class IV Current visit: Yes Status: Acute Qualifiers: Congestive heart failure type: combined Congestive heart failure chronicity: acute on chronic Qualified Code(s): I50.43 - Acute on chronic combined systolic (congestive) and diastolic (congestive) heart failure Category: Medical Code(s): I50.9 - Heart failure, unspecified (2) A-fib Current visit: No Status: Chronic Qualifiers: Atrial fibrillation type: chronic Category: Medical Code(s): I48.91 - Unspecified atrial fibrillation (3) Coronary artery disease Current visit: No Status: Chronic Category: Medical Code(s): I25.10 - Atherosclerotic heart disease of [place] coronary artery without angina pectoris (4) Diabetes Current visit: No Status: Chronic Category: Medical Code(s): E11.9 - Type 2 diabetes mellitus without complications (5) History of DVT (deep vein thrombosis) Current visit: No Status: Chronic Category: Medical Code(s): Z86.718 - Personal history of other venous thrombosis and embolism (6) Hyperlipidemia Current visit: No Status: Chronic Category: Medical Code(s): E78.5 - Hyperlipidemia, unspecified (7) Hypertension Current visit: No Status: Chronic Category: Medical Code(s): I10 - Essential (primary) hypertension (8) Obstructive sleep apnea Current visit: No Status: Chronic Category: Medical Code(s): G47.33 - Obstructive sleep apnea (adult) (pediatric) (9) Anemia Current visit: No Status: Ruled-out Qualifiers: Anemia type: other cause Other causes of anemia: acute posthemorrhagic Qualified Code(s): D62 - Acute posthemorrhagic anemia Category: Medical Code(s): D64.9 - Anemia, unspecified (10) Presence of IVC filter Current visit: Yes Status: Acute Category: Medical Code(s): Z95.828 - Presence of other vascular implants and grafts (11) Pulmonary embolus Current visit: Yes Status: Acute Category: Medical Code(s): I26.99 - Other pulmonary embolism without acute cor pulmonale (12) Onychogryphosis Start date: 05/28/19 Current visit: Yes Status: Acute Category: Medical Code(s): L60.2 - Onychogryphosis (13) Onychomycosis Start date: 05/28/19 Current visit: Yes Status: Acute Category: Medical Code(s): B35.1 - Tinea unguium (14) Lower extremity edema Start date: 05/28/19 Current visit: Yes Status: Acute Category: Medical Code(s): R60.0 - Local ized edema (15) Acquired hallux valgus Start date: 05/28/19 Current visit: Yes Status: Acute Category: Medical Code(s): M20.10 - Hallux valgus (acquired), unspecified foot (16) Osteoarthritis Start date: 05/28/19 Current visit: Yes Status: Acute Category: Medical Code(s): M19.90 - Unspecified osteoarthritis, unspecified site (17) Diabetic foot Start date: 05/28/19 Current visit: Yes Status: Acute Category: Medical Code(s): E11.8 - Type 2 diabetes mellitus with unspecified complications (18) Hammertoes of both feet Current visit: Yes Status: Acute Category: Medical Code(s): M20.41 - Other hammer toe(s) (acquired), right foot; M20.42 - Other hammer toe(s) (acquired), left foot <Birgit Davis - 05/28/19 17:04> - Assessment and plan all Dx Assessment and Plan for all problems:: Physician Attestation I was present during all of the critical components of the office visit. The patient was seen, evaluated and examined by me at the bedside with Chanell Elizabeth. I have read the office note that was documented by the staff and/or [employer] and agree with the documentation. <Birgit Davis - 05/28/19 17:04> onychodystrophy, onychomycosis, onychogryphosis L60.2 Plan TOENAIL TRIM: 1. Nails were debrided xs 10 utilizing manual debridement with a nail nipper. 2. Patient tolerated the procedure well. 3. Recommend the use of jitendra board to file nails down and keep thinner. 4. Follow up in 3 months or as needed. 5. Patient should call me sooner if any questions or concerns arise. Plan Acquired hallux valgus We discussed conservative versus surgical treatment options. Conservative treatment options include change shoe wear, prefab or custom molded inserts, strapping, taping and padding. Patient can also take NSAIDs, ice and elevate for pain and swelling. Discussed that patient would benefit form wider and deeper shoe wear to accommodate the deformity. 1. Obtain WB 3 views b/l feet x-rays if needed 2. Continue wide shoes 3. Recommend Darco splint, toe spacers, dispensed a bunion sleeve today. 4. Follow up in 10-12 weeks for routine diabetic foot exam. Plan: 1. Nails trimmed 1-10 today. 2. Bunion splint dispensed today 3. Patient placed on routine diabetic foot care schedule for nail trim in 10-12 weeks 4. Order will be placed for new Diabetic shoes. <Alice Elizabeth - 05/28/19 16:22>
[2019-05-28 14:48] LABS: Free Thyroxine Index 3.2 ug/dL (5.93-13.13); Thyroid Stimulating Hormone 0.26 uIU/ml (0.358-3.740)
--- NOTE | 2019-05-28 19:02 | Cardiology Report ---
APPROVED REPORT Bilateral Lower Extremity Venous Study for DVT. [employer] Laborer: JOSE MIGUEL Indications Lower Extremity Edema: Bilateral Pulmonary Embolism History of Smoking history of right leg DVT, now with PE Risk Factors Prior Phlebitis/DVT Cardiac Disease Obesity CAD Patient had a DVT in RLE 04/2018 with IVC filter placed in late 2018. History of recurrent DVT. Past History DVT : Date : 04/2018 Pulmonary Embolism Date : 05/28/19 Vein Imaging CFV (R): compressive, spontaneous, phasic, augmentation FEM (R): Partially Compressible POP (R): compressive, spontaneous, phasic, augmentation PTV (R): compressive, spontaneous, phasic, augmentation GSV (R): Thrombus SSV (R): Thrombus Peroneals (R):Not Visualized GAS (R): Compressible CFV (L): compressive, spontaneous, phasic, augmentation FEM (L): compressive, spontaneous, phasic, augmentation POP (L): compressive, spontaneous, phasic, augmentation PTV (L): Compressible GSV (L): compressive, spontaneous, phasic, augmentation, SSV (L): Compressible GAS (L): Compressible Conclusion No evidence of DVT or superficial thrombophlebitis in the veins scanned of the left lower extremity. The right Great Saphenous Vein is dilated with thrombus and is non-compressible. 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 Electronically signed by : Devonte Salguero MD 05/28/2019 19:01:22
[2019-05-28 19:07] LABS: Albumin Level 3.3 gm/dL (3.4-5.0); Albumin/Globulin Ratio 0.9 (1.1-1.8); Anion Gap 14.4 mEq/L (5-15); Bilirubin,Total 0.2 mg/dL (0.2-1.0); Calcium 8.7 mg/dL (8.5-10.1); Globulin 3.5 gm/dl (1.3-3.2); Total Protein,Serum 6.8 gm/dL (6.4-8.2)
[2019-05-29 06:54] LABS: Anion Gap 14.2 mEq/L (5-15); Calcium 9.2 mg/dL (8.5-10.1)
--- NOTE | 2019-05-29 07:54 | Progress Note ---
Subjective Date: 05/29/19 Time: 07:51 Principal diagnosis: CHF, elevated troponins Interval history: 74 yo WM in bedside chair eating breakfast in NAD. Breathing better after significant diuresis overnight. Telemetry shows a. fib with mild RVR. EKG is a. fib with RBBB. Back on low dose cardizem gtt overnight due to recurrent tachycardia. Will increase bisoprolol to 10 mg BID and wean off cardizem gtt. Continue digoxin. Troponins elevated overnight. Prelim Echo shows LVEF in the 40-45% range with aortic sclerosis. Exam Vital signs and Labs for Last 24 Hours: Temp Pulse Resp BP Pulse Ox 97.8 F 105 H 22 115/60 98 05/29/19 06:00 05/29/19 06:00 05/29/19 06:00 05/29/19 06:00 05/29/19 06:00 Laboratory Results - last 24 hr 05/28/19 10:50: WBC 14.1 H, RBC 4.24 L, Hgb 11.8 L, Hct 37.9 L, MCV 89.5, MCH 28.0, MCHC 31.2 L, RDW 14.1, Plt Count 371, MPV 8.3, Neut % (Auto) 74.0, Lymph % (Auto) 18.4, [place] % (Auto) 4.5, Eos % (Auto) 2.8, Baso % (Auto) 0.3, Neut # (Auto) 10.4 H, Lymph # (Auto) 2.6, [place] # (Auto) 0.6, Eos # (Auto) 0.4, Baso # (Auto) 0.1 05/28/19 10:50: Sodium 141, Potassium 4.2, Chloride 104, Carbon Dioxide 23, Anion Gap 18.2 H, BUN 19 H, Creatinine 1.11, Estimated Creat Clear 57, Estimated GFR 64, Est GFR ( Amer) 78, Glucose 75, Calcium 8.8, Magnesium 1.7, Total Bilirubin 0.2, AST 26, ALT 48, Alkaline Phosphatase 73, Total Protein 7.0, Albumin 3.4, Globulin 3.6 H, Albumin/Globulin Ratio 0.9 L 05/28/19 10:50: Troponin I < 0.02 05/28/19 10:50: Troponin I Cancelled 05/28/19 10:50: B-Natriuretic Peptide 250 H 05/28/19 10:50: TSH 0.26 L, Free T4 Index 3.2 L, Thyroxine (T4) 8.3, T3 Uptake 39 05/28/19 12:12: Lactate 2.1 H 05/28/19 12:24: POC Glucose 98 05/28/19 16:07: Troponin I 0.13 H 05/28/19 16:33: Lactate 1.8 05/28/19 16:49: POC Glucose 268 H 05/28/19 18:49: Sodium 136, Potassium 4.4, Chloride 100, Carbon Dioxide 26, Anion Gap 14.4, BUN 18, Creatinine 1.36 H D, Estimated Creat Clear 46, Estimated GFR 51 L, Est GFR ( Amer) 62 D, Glucose 269 H D, Calcium 8.7, Magnesium 1.7, Total Bilirubin 0.2, AST 19 D, ALT 40, Alkaline Phosphatase 70, Total Protein 6.8, Albumin 3.3 L, Globulin 3.5 H, Albumin/Globulin Ratio 0.9 L 05/28/19 18:49: Troponin I 0.16 H 05/29/19 05:40: Sodium 136, Potassium 4.2, Chloride 100, Carbon Dioxide 26, Anion Gap 14.2, BUN 18, Creatinine 1.20, Estimated Creat Clear 52, Estimated GFR 59, Est GFR ( Amer) 71, Glucose 202 H D, Calcium 9.2, Magnesium 1.8 I & O for Last 24 hours: Intake & Output 05/26/19 05/27/19 05/28/19 05/29/19 11:59 11:59 11:59 11:59 Intake Total 840 / 840 Output Total 4655 / 4655 Balance -3815 / -3815 Weight 291 lb 3 oz - *Routine Respiratory Exam Present: rales. Absent: accessory muscle use, rhonchi, wheezes Comments: improved breath sounds with rales at base improved. - *Routine Cardiovascular Exam Present: tachycardia, irregularly irregular. Absent: murmur, gallop, rubs - *Routine Extremities Exam Present: edema. Absent: calf tenderness - *Routine Neurological Exam Present: alert, oriented X3, moving all extremities Progress Note: A&P (1) CHF (congestive heart failure), NYHA class IV Status: Acute Current Visit: Yes (2) A-fib Status: Chronic Current Visit: No (3) Coronary artery disease Status: Chronic Current Visit: No (4) Diabetes Status: Chronic Current Visit: No (5) History of DVT (deep vein thrombosis) Status: Chronic Current Visit: No (6) Hyperlipidemia Status: Chronic Current Visit: No (7) Hypertension Status: Chronic Current Visit: No (8) Obstructive sleep apnea Status: Chronic Current Visit: No (9) Anemia Status: Ruled-out Current Visit: No (10) Presence of IVC filter Status: Acute Current Visit: Yes (11) Class 3 severe obesity due to excess calories in adult Status: Chronic Current Visit: Yes (12) Lower extremity edema Status: Acute Current Visit: Yes (13) Pulmonary embolus Status: Acute Current Visit: Yes (14) Elevated troponin Status: Acute Current Visit: Yes Assessment and Plan for All Diagnoses:: 1. Continue IV lasix but at lower dosing, monitor renals 2. Increase bisoprolol and wean off cardizem. Continue digoxin. 3. recommend [facility] today to assess coronaries and bypass grafts 4. RLE thrombus, PE on CTA, now on lovenox and has IVC filter (placed 2018) 5. Enlarged thyroid with low TSH, defer to PCP 6. History of recurrent GI bleed in past, monitor for now
--- NOTE | 2019-05-29 08:41 | Progress Note ---
Internal Medicine - PN: Subj *Date: 05/29/19 *Time: 08:37 Interval history: Patient did well overnight. Had impressive response to diuresis approximately 4 L negative fluid balance in the past 24 hours. Continues to have tachyarrhythmia on telemetry after initiating digoxin and continuing diltiazem drip. Patient denies any chest pain this morning. Continues to have some shortness of breath though improved. Also has improvement in his edema. Overall states he feels better and is requesting to move rooms as he does not like the "tiny smothering room" in the ICU Exam Vital signs and Labs for Last 24 Hours: Temp Pulse Resp BP Pulse Ox 97.5 F L 108 H 20 128/63 94 L 05/29/19 07:57 05/29/19 07:57 05/29/19 07:57 05/29/19 07:57 05/29/19 07:57 Laboratory Results - last 24 hr 05/28/19 10:50: WBC 14.1 H, RBC 4.24 L, Hgb 11.8 L, Hct 37.9 L, MCV 89.5, MCH 28.0, MCHC 31.2 L, RDW 14.1, Plt Count 371, MPV 8.3, Neut % (Auto) 74.0, Lymph % (Auto) 18.4, [place] % (Auto) 4.5, Eos % (Auto) 2.8, Baso % (Auto) 0.3, Neut # (Auto) 10.4 H, Lymph # (Auto) 2.6, [place] # (Auto) 0.6, Eos # (Auto) 0.4, Baso # (Auto) 0.1 05/28/19 10:50: Sodium 141, Potassium 4.2, Chloride 104, Carbon Dioxide 23, Anion Gap 18.2 H, BUN 19 H, Creatinine 1.11, Estimated Creat Clear 57, Estimated GFR 64, Est GFR ( Amer) 78, Glucose 75, Calcium 8.8, Magnesium 1.7, Total Bilirubin 0.2, AST 26, ALT 48, Alkaline Phosphatase 73, Total Protein 7.0, Albumin 3.4, Globulin 3.6 H, Albumin/Globulin Ratio 0.9 L 05/28/19 10:50: Troponin I < 0.02 05/28/19 10:50: Troponin I Cancelled 05/28/19 10:50: B-Natriuretic Peptide 250 H 05/28/19 10:50: TSH 0.26 L, Free T4 Index 3.2 L, Thyroxine (T4) 8.3, T3 Uptake 39 05/28/19 12:12: Lactate 2.1 H 05/28/19 12:24: POC Glucose 98 05/28/19 16:07: Troponin I 0.13 H 05/28/19 16:33: Lactate 1.8 05/28/19 16:49: POC Glucose 268 H 05/28/19 18:49: Sodium 136, Potassium 4.4, Chloride 100, Carbon Dioxide 26, Anion Gap 14.4, BUN 18, Creatinine 1.36 H D, Estimated Creat Clear 46, Estimated GFR 51 L, Est GFR ( Amer) 62 D, Glucose 269 H D, Calcium 8.7, Magnesium 1.7, Total Bilirubin 0.2, AST 19 D, ALT 40, Alkaline Phosphatase 70, Total Protein 6.8, Albumin 3.3 L, Globulin 3.5 H, Albumin/Globulin Ratio 0.9 L 05/28/19 18:49: Troponin I 0.16 H 05/29/19 05:40: Sodium 136, Potassium 4.2, Chloride 100, Carbon Dioxide 26, Anion Gap 14.2, BUN 18, Creatinine 1.20, Estimated Creat Clear 52, Estimated GFR 59, Est GFR ( Amer) 71, Glucose 202 H D, Calcium 9.2, Magnesium 1.8 I & O for Last 24 hours: Intake & Output 05/26/19 05/27/19 05/28/19 05/29/19 23:59 23:59 23:59 23:59 Intake Total 720 / 720 120 / 120 Output Total 3450 / 3700 1205 / 1205 Balance -2730 / -2980 -1085 / -1085 Weight 132.08 kg Narrative: - Constitutional mild distress, morbidly obese - *Routine HEENT Exam Head: Present: normocephalic Eye: Present: EOMI, PERRL - *Routine Neck Exam Present: supple Absent: lymphadenopathy - *Routine Respiratory Exam Present: accessory muscle use, crackles (Bilateral posterior lung daniels in the bases). Absent: wheezes - *Routine Cardiovascular Exam Present: tachycardia, irregularly irregular, JVD. Absent: murmur - *Routine Abdominal Exam Present: soft (Protuberant), normoactive bowel sounds. Absent: tenderness - *Routine Extremities Exam Present: edema with interval improvement (2+ edema right lower extremity to his knee with well-healed scar from vein graft harvest, left leg with 2+ edema to the knee). Absent: cyanosis, clubbing - *Routine Skin Exam Present: pallor, warm. Absent: rash - *Routine Neurological Exam Present: alert, oriented X3, normal speech (Patient speech at baseline, nasally voice consistent with his chronic sinus issues) Assessment and Plan (1) CHF (congestive heart failure), NYHA class IV Current visit: Yes Status: Acute Qualifiers: Congestive heart failure type: combined Congestive heart failure chronicity: acute on chronic Qualified Code(s): I50.43 - Acute on chronic combined systolic (congestive) and diastolic (congestive) heart failure Category: Medical Code(s): I50.9 - Heart failure, unspecified (2) A-fib Current visit: No Status: Chronic Qualifiers: Atrial fibrillation type: chronic Category: Medical Code(s): I48.91 - Unspecified atrial fibrillation (3) Coronary artery disease Current visit: No Status: Chronic Category: Medical Code(s): I25.10 - Atherosclerotic heart disease of [place] coronary artery without angina pectoris (4) Diabetes Current visit: No Status: Chronic Qualifiers: Diabetes mellitus type: type 2 Category: Medical Code(s): E11.9 - Type 2 diabetes mellitus without complications (5) History of DVT (deep vein thrombosis) Current visit: No Status: Chronic Category: Medical Code(s): Z86.718 - Personal history of other venous thrombosis and embolism (6) Hyperlipidemia Current visit: No Status: Chronic Category: Medical Code(s): E78.5 - Hyperlipidemia, unspecified (7) Hypertension Current visit: No Status: Chronic Category: Medical Code(s): I10 - Essential (primary) hypertension (8) Obstructive sleep apnea Current visit: No Status: Chronic Category: Medical Code(s): G47.33 - Obstructive sleep apnea (adult) (pediatric) (9) Anemia Current visit: No Status: Ruled-out Qualifiers: Anemia type: other cause Other causes of anemia: acute posthemorrhagic Qualified Code(s): D62 - Acute posthemorrhagic anemia Category: Medical Code(s): D64.9 - Anemia, unspecified (10) Presence of IVC filter Current visit: Yes Status: Acute Category: Medical Code(s): Z95.828 - Presence of other vascular implants and grafts (11) Class 3 severe obesity due to excess calories in adult Current visit: Yes Status: Chronic Qualifiers: Serious obesity comorbidity presence: with serious comorbidity Body mass index: BMI 40.0-44.9 Qualified Code(s): E66.01 - Morbid (severe) obesity due to excess calories; Z68.41 - Body mass index (BMI) 40.0-44.9, adult Category: Medical Code(s): E66.01 - Morbid (severe) obesity due to excess calories (12) Lower extremity edema Start date: 05/28/19 Current visit: Yes Status: Acute Category: Medical Code(s): R60.0 - Localized edema (13) Pulmonary embolus Current visit: Yes Status: Acute Qualifiers: Pulmonary embolism type: single subsegmental (without acute cor pulmonale) Qualified Code(s): I26.93 - Single subsegmental pulmonary embolism without acute cor pulmonale Category: Medical Code(s): I26.99 - Other pulmonary embolism without acute cor pulmonale (14) Elevated troponin Current visit: Yes Status: Acute Category: Medical Code(s): R79.89 - Other specified abnormal findings of blood chemistry - Assessment and plan all Dx Assessment and Plan for all problems:: 74-year-old with atrial fibrillation and CHF exacerbation. Showing some improvement after aggressive diuresis. Cardiology consulted, appreciate recommendations. Anticipate patient going for diagnostic heart cath today. Will transition to beta-blockade for rate control and stop calcium channel blockers today. Continue diuresis with goal of -1 to 2 L a day. Condition remains guarded, prognosis fair. Full code. Echo obtained this morning, final result pending. Bilateral lower extremity duplexes performed, negative for DVTs on left, right lower extremity with DVT in distal femoral
--- NOTE | 2019-05-29 20:22 | Electrocardiograph Report ---
APPROVED REPORT Exam: Resting ECG HR:100 bpm ECG Measurements Heart Rate 100 AXES QRSd 152 QRS 109 QT 384 T61 QTc 495 <Conclusion> Atrial fibrillation with premature ventricular or aberrantly conducted complexes Right bundle branch block Abnormal ECG Electronically signed by : David Seymour, 05/29/2019 20:21:51
--- NOTE | 2019-05-29 20:23 | Cardiology Report ---
APPROVED REPORT [employer] P[employer] Inspector: MARISELA Indications POST CARDIAC CATH GROIN PAIN Conclusion No evidence of pseudoaneurysm, hematoma, or AV fistula of the right groin. Electronically signed by : Devonte Salguero MD 05/29/2019 20:23:20
--- NOTE | 2019-05-29 21:18 | Cardiology Report ---
APPROVED REPORT EXAM: Comprehensive 2D, Doppler, and color-flow Echocardiogram [employer]s Crafter: Anjali Unger RVT Ht: 5 ft 8 in Wt: 291lbs BSA: 2.40 BP: 127/72 mmHg Indications: Congestive Heart Failure, Atrial Fibrillation, Diabetes, Obesity, Hyperlipidemia, HTN,PE.DVT,CAD,Old NM's, CABG x 2, IVC filter 2018,EF of 40% on 10/10 echo Echo Enhancing Agent Indication: Endocardial border delineation Agent(s) / Amount(s) Used: Definity 2 cc 2D Dimensions LVOT 0.93 cm (M/F) 1.5-2.5 M-Mode Dimensions RVDd 3.09 cm (0.9-2.6)LVDd 5.46 cm (3.5-5.7) LVDs 4.15 cm (3.5-5.7)IVSd 0.77 cm (0.6-1.1) PWd 0.98 cm (0.6-1.1)EF (Teich) 47.30% FS 24.00% EDV (Teich) 145.00 mL ESV (Teich) 76.40 mL Aortic Valve LVOT Max 87.00 (70-110 cm/s)LVOT VTI 16.69 cm Left Ventricle Left atrium is mildly enlarged, left ventricle is normal size, mild concentric left ventricular hypertrophy, there is moderately reduced left ventricular systolic function, visually estimated ejection fraction 40%, there is marked hypokinesis involving the inferior inferior basal and posterior basal wall. Definity contrast was utilized to delineate the endocardial surfaces, there is no left ventricular thrombus seen. Diastolic parameters are inconclusive. Right Ventricle Right atrium and right ventricular normal size and contractility. Aortic Valve Aortic valve is thickened and calcified with severe restriction to leaflet mobility, the aortic outflow velocity is not accurately recorded to assess the severity of the aortic stenosis, if clinically indicated transesophageal echocardiogram is recommended. Mitral Valve Mitral valve leaflets are minimally thickened, there is mild mitral regurgitation. Tricuspid Valve Tricuspid valve is grossly normal, there is mild tricuspid regurgitation, tricuspid regurgitation jet velocity is inadequate for calculation of the right ventricular systolic pressure. Pulmonic Valve Pulmonic valve is poorly visualized. Great Vessels Aortic root is normal size. Pericardium No significant pericardial effusion noted. Conclusion 1. Mildly enlarged left atrium, normal left ventricular size, mild concentric left ventricular hypertrophy, visually estimated ejection fraction 40% with segmental wall motion abnormality described above, Definity contrast utilized to delineate the endocardial surfaces. There is no left ventricular thrombus seen. Diastolic parameters are inconclusive. 2. Thickened and calcified aortic valve, morphologically there appears to be severe aortic stenosis, the Doppler findings are inconclusive, if clinically indicated a transesophageal echocardiogram is recommended. 3. Mild mitral and tricuspid regurgitation. 4. No significant pericardial effusion noted. Electronically signed by : Blake Tariq, 05/29/2019 21:18:06
[2019-05-30 06:23] LABS: Basophils % 0.2 % (0.1-2.0); Eosinophils # 0.3 K/mm3 (0.0-0.4); Eosinophils % 2.4 % (0.1-12.0); Hematocrit 39.9 % (42.0-52.0); Hemoglobin 12.5 g/dL (14.1-18.0); Lymphocytes # 2.4 K/mm3 (0.7-4.5); Lymphocytes % 19.8 % (10-50); Mean Corpuscular HGB Conc 31.5 g/dL (31.8-35.4); Mean Corpuscular Volume 89.3 fl (80-94); Mean Platelet Volume 7.7 fl (7.4-10.4); Monocytes # 0.7 K/mm3 (0.1-1.0); Neutrophils # 8.8 K/mm3 (1.8-7.8); Neutrophils % 71.6 % (37.0-80.0); Platelet Count 382 K/mm3 (142-424); Red Blood Count 4.47 M/mm3 (4.60-6.20); Red Cell Distribution Width 14.3 % (11.5-17.5); White Blood Count 12.3 K/mm3 (4.8-10.8)
[2019-05-30 06:34] LABS: Calcium 9.3 mg/dL (8.5-10.1)
--- NOTE | 2019-05-30 08:05 | Progress Note ---
Internal Medicine - PN: Subj *Date: 05/30/19 *Time: 08:03 Interval history: Patient did well overnight. Is up in a chair, has eaten 100% of his breakfast. He complains of some dizziness and visual disturbances but these have been occurring over the past month or 2. He denies chest pain, dyspnea except when he gets up and moves around. Exam Vital signs and Labs for Last 24 Hours: Temp Pulse Resp BP Pulse Ox 98.0 F 103 H 20 119/52 L 94 L 05/30/19 04:00 05/30/19 06:00 05/30/19 06:00 05/30/19 06:00 05/30/19 06:00 Laboratory Results - last 24 hr 05/28/19 19:37: POC Glucose 236 H 05/29/19 05:24: POC Glucose 216 H 05/29/19 11:17: POC Glucose 260 H 05/29/19 12:57: Activated Clotting Time > 400 H* 05/29/19 16:49: POC Glucose 249 H 05/29/19 20:43: POC Glucose 276 H 05/30/19 05:40: POC Glucose 211 H 05/30/19 05:45: WBC 12.3 H, RBC 4.47 L, Hgb 12.5 L, Hct 39.9 L, MCV 89.3, MCH 28.1, MCHC 31.5 L, RDW 14.3, Plt Count 382, MPV 7.7, Neut % (Auto) 71.6, Lymph % (Auto) 19.8, [place] % (Auto) 6.0, Eos % (Auto) 2.4, Baso % (Auto) 0.2, Neut # (Auto) 8.8 H, Lymph # (Auto) 2.4, [place] # (Auto) 0.7, Eos # (Auto) 0.3, Baso # (Auto) 0.0 05/30/19 05:45: Sodium 139, Potassium 4.0, Chloride 102, Carbon Dioxide 27, Anion Gap 14.0, BUN 18, Creatinine 1.12, Estimated Creat Clear 56, Estimated GFR 64, Est GFR ( Amer) 77, Glucose 214 H, Calcium 9.3 I & O for Last 24 hours: Intake & Output 05/27/19 05/28/19 05/29/19 05/30/19 11:59 11:59 11:59 11:59 Intake Total 840 / 840 120 / 120 Output Total 5505 / 5705 1900 / 1900 Balance -4665 / -4865 -1780 / -1780 Weight 291 lb 3 oz Narrative: Patient is alert. Pleasant. Oriented x3. No cranial nerve deficits noted. No JVD. Oropharynx clear. Anterior lung daniels have good air movement. Heart rate regular. No murmurs. Morbid obesity limits accuracy of his exam. Baseline ankle edema. No pulse deficits. Able to move all extremities. Assessment and Plan (1) CHF (congestive heart failure), NYHA class IV Current visit: Yes Status: Acute Qualifiers: Congestive heart failure type: combined Congestive heart failure chronicity: acute on chronic Qualified Code(s): I50.43 - Acute on chronic combined systolic (congestive) and diastolic (congestive) heart failure Category: Medical Code(s): I50.9 - Heart failure, unspecified (2) A-fib Current visit: No Status: Chronic Qualifiers: Atrial fibrillation type: chronic Category: Medical Code(s): I48.91 - Unspecified atrial fibrillation (3) Coronary artery disease Current visit: No Status: Chronic Category: Medical Code(s): I25.10 - Atherosclerotic heart disease of [place] coronary artery without angina pectoris (4) Diabetes Current visit: No Status: Chronic Qualifiers: Diabetes mellitus type: type 2 Category: Medical Code(s): E11.9 - Type 2 diabetes mellitus without complications (5) History of DVT (deep vein thrombosis) Current visit: No Status: Chronic Category: Medical Code(s): Z86.718 - Personal history of other venous thrombosis and embolism (6) Hyperlipidemia Current visit: No Status: Chronic Category: Medical Code(s): E78.5 - Hyperlipidemia, unspecified (7) Hypertension Current visit: No Status: Chronic Category: Medical Code(s): I10 - Essential (primary) hypertension (8) Obstructive sleep apnea Current visit: No Status: Chronic Category: Medical Code(s): G47.33 - Obstructive sleep apnea (adult) (pediatric) (9) Anemia Current visit: No Status: Ruled-out Qualifiers: Anemia type: other cause Other causes of anemia: acute posthemorrhagic Qualified Code(s): D62 - Acute posthemorrhagic anemia Category: Medical Code(s): D64.9 - Anemia, unspecified (10) Presence of IVC filter Current visit: Yes Status: Acute Category: Medical Code(s): Z95.828 - Presence of other vascular implants and grafts (11) Pulmonary embolus Current visit: Yes Status: Acute Qualifiers: Pulmonary embolism type: single subsegmental (without acute cor pulmonale) Qualified Code(s): I26.93 - Single subsegmental pulmonary embolism without acute cor pulmonale Category: Medical Code(s): I26.99 - Other pulmonary embolism without acute cor pulmonale (12) Non-STEMI (non-ST elevated myocardial infarction) Current visit: Yes Status: Acute Category: Medical Code(s): I21.4 - Non-ST elevation (NSTEMI) myocardial infarction Patient doing well after stent placement yesterday. Continue dual antiplatelet therapy very cautiously given his history of a GI bleed with previous NOAC for atrial fibrillation necessitating an IVC filter, transfer to floor today for continued monitoring and further evaluation. CHF seems to be stable at this point EF 40%. Probable discharge tomorrow.
--- NOTE | 2019-05-30 11:07 | Progress Note ---
Subjective Date: 05/30/19 Time: 11:06 Principal diagnosis: CHF, elevated troponins Interval history: This is a 74-year-old gentleman who underwent left cardiac catheterization yesterday he had a drug-eluting stent to the [place] circumflex. He is on Brilinta and aspirin for dual antiplatelet therapy at this time. However we will have to switch the patient over to Plavix and aspirin as he will need triple therapy for his DVT/PE. His echocardiogram showed an ejection fraction of 40% as well as severe aortic stenosis. He denies any chest pain or pressure this morning. He states his shortness of breath has improved significantly today as compared to yesterday. He denies any edema. He denies any fever, chills, nausea, vomiting, diarrhea, PND or orthopnea. Exam Vital signs and Labs for Last 24 Hours: Temp Pulse Resp BP Pulse Ox 97.5 F L 102 H 20 152/74 H 95 05/30/19 08:00 05/30/19 08:39 05/30/19 08:00 05/30/19 08:00 05/30/19 08:00 Laboratory Results - last 24 hr 05/28/19 19:37: POC Glucose 236 H 05/29/19 05:24: POC Glucose 216 H 05/29/19 11:17: POC Glucose 260 H 05/29/19 12:57: Activated Clotting Time > 400 H* 05/29/19 16:49: POC Glucose 249 H 05/29/19 20:43: POC Glucose 276 H 05/30/19 05:40: POC Glucose 211 H 05/30/19 05:45: WBC 12.3 H, RBC 4.47 L, Hgb 12.5 L, Hct 39.9 L, MCV 89.3, MCH 28.1, MCHC 31.5 L, RDW 14.3, Plt Count 382, MPV 7.7, Neut % (Auto) 71.6, Lymph % (Auto) 19.8, [place] % (Auto) 6.0, Eos % (Auto) 2.4, Baso % (Auto) 0.2, Neut # (A uto) 8.8 H, Lymph # (Auto) 2.4, [place] # (Auto) 0.7, Eos # (Auto) 0.3, Baso # (Auto) 0.0 05/30/19 05:45: Sodium 139, Potassium 4.0, Chloride 102, Carbon Dioxide 27, Anion Gap 14.0, BUN 18, Creatinine 1.12, Estimated Creat Clear 56, Estimated GFR 64, Est GFR ( Amer) 77, Glucose 214 H, Calcium 9.3 I & O for Last 24 hours: Intake & Output 05/27/19 05/28/19 05/29/19 05/30/19 23:59 23:59 23:59 23:59 Intake Total 720 / 720 240 / 240 360 / 360 Output Total 3450 / 3700 2505 / 2505 1450 / 1450 Balance -2730 / -2980 -2265 / -2265 -1090 / -1090 Weight 291 lb 3 oz Narrative: Telemetry strip shows afib with a rate of 108. - Constitutional no acute distress, morbidly obese - *Routine HEENT Exam Head: Present: normocephalic, atraumatic Eye: Present: EOMI, PERRL ENT: Present: mucous membranes moist - *Routine Neck Exam Present: supple, full ROM, normal carotid upstroke. Absent: JVD, carotid bruit, lymphadenopathy - *Routine Respiratory Exam Present: CTA bilaterally - *Routine Cardiovascular Exam Present: Normal S1, Normal S2, tachycardia, irregularly irregular. Absent: murmur - *Routine Abdominal Exam Present: soft, normoactive bowel sounds. Absent: tenderness, distended - *Routine Extremities Exam Present: full ROM, pulses intact, normal capillary refill. Absent: cyanosis, clubbing, edema - *Routine Skin Exam Present: intact, warm. Absent: erythema, rash - *Routine Neurological Exam Present: alert, oriented X3, CN II-XII intact. Absent: sensory deficit, motor deficit - Detailed Eye Exam Eyelids: Left normal inspection Progress Note: A&P (1) Non-STEMI (non-ST elevated myocardial infarction) Status: Acute Current Visit: Yes (2) CHF (congestive heart failure), NYHA class IV Status: Acute Current Visit: Yes (3) A-fib Status: Chronic Current Visit: No (4) Coronary artery disease Status: Chronic Current Visit: No (5) Diabetes Status: Chronic Current Visit: No (6) History of DVT (deep vein thrombosis) Status: Chronic Current Visit: No (7) Hyperlipidemia Status: Chronic Current Visit: No (8) Hypertension Status: Chronic Current Visit: No (9) Obstructive sleep apnea Status: Chronic Current Visit: No (10) Anemia Status: Ruled-out Current Visit: No (11) Presence of IVC filter Status: Acute Current Visit: Yes (12) Pulmonary embolus Status: Acute Current Visit: Yes Assessment and Plan for All Diagnoses:: Plan: 1. The patient is status post stenting to his circumflex artery. The patient remains on Brilinta and aspirin for dual antiplatelet therapy at this time. After his evening dose of Brilinta carlyight will discontinue his Brilinta and start Plavix 75 mg p.o. daily tomorrow morning. 2. At this time the patient will remain on Lovenox for anticoagulation. Tomorrow after his IESHA we will get him switched over to oral anticoagulation. We will discuss the dose with Dr. Angel today to see if he would need to be on acute DVT/PE dosing of Xarelto or just daily dosing. 3. The patient had an echocardiogram which showed an ejection fraction of 40%. He does have severe aortic stenosis and a IESHA was recommended. We will set the patient up for a IESHA tomorrow afternoon with Dr. PEREZ around noon. 4. The patient remains tachycardic today. We will increase his bisoprolol to 10 mg p.o. twice daily. 5. His blood pressure is well controlled. 6. LDL goal is less than 55. 7. The patient does have a little right lower extremity thrombus and PE. He is currently on Lovenox. He does have an IVC filter in place. And as mentioned before we will get him on oral anticoagulation tomorrow following his IESHA. 8. Further recommendations were made pending the patient's response to treatment and the results of his IESHA tomorrow. Thank you for the opportunity to help her dissipate in the care of this patient.
[2019-05-31 07:01] LABS: Basophils % 0.3 % (0.1-2.0); Eosinophils # 0.4 K/mm3 (0.0-0.4); Eosinophils % 3.4 % (0.1-12.0); Hematocrit 40.9 % (42.0-52.0); Hemoglobin 12.8 g/dL (14.1-18.0); Lymphocytes # 2.5 K/mm3 (0.7-4.5); Lymphocytes % 19.4 % (10-50); Mean Corpuscular HGB Conc 31.2 g/dL (31.8-35.4); Mean Corpuscular Volume 89.2 fl (80-94); Mean Platelet Volume 7.8 fl (7.4-10.4); Monocytes # 0.7 K/mm3 (0.1-1.0); Monocytes % 5.6 % (1.7-9.3); Neutrophils # 9.1 K/mm3 (1.8-7.8); Neutrophils % 71.3 % (37.0-80.0); Platelet Count 343 K/mm3 (142-424); Red Blood Count 4.59 M/mm3 (4.60-6.20); White Blood Count 12.8 K/mm3 (4.8-10.8)
[2019-05-31 07:33] LABS: Anion Gap 15.2 mEq/L (5-15); Calcium 9.1 mg/dL (8.5-10.1)
--- NOTE | 2019-05-31 09:35 | Progress Note ---
Subjective Date: 05/31/19 Time: 09:31 Principal diagnosis: CHF, elevated troponins Interval history: 74 yo WM at bedside in NAD. No chest pains and breathing is better. Wants to go home. Exam Vital signs and Labs for Last 24 Hours: Temp Pulse Resp BP Pulse Ox 98.3 F 57 L 20 115/83 97 05/31/19 08:00 05/31/19 08:00 05/31/19 08:00 05/31/19 08:00 05/31/19 08:00 Laboratory Results - last 24 hr 05/30/19 11:10: POC Glucose 275 H 05/30/19 16:34: POC Glucose 303 H* 05/30/19 20:40: POC Glucose 231 H 05/31/19 06:17: POC Glucose 205 H 05/31/19 06:32: WBC 12.8 H, RBC 4.59 L, Hgb 12.8 L, Hct 40.9 L, MCV 89.2, MCH 27.8, MCHC 31.2 L, RDW 14.0, Plt Count 343, MPV 7.8, Neut % (Auto) 71.3, Lymph % (Auto) 19.4, [place] % (Auto) 5.6, Eos % (Auto) 3.4, Baso % (Auto) 0.3, Neut # (Auto) 9.1 H, Lymph # (Auto) 2.5, [place] # (Auto) 0.7, Eos # (Auto) 0.4, Baso # (Auto) 0.0 05/31/19 06:32: Sodium 138, Potassium 4.2, Chloride 102, Carbon Dioxide 25, Anion Gap 15.2 H, BUN 24 H D, Creatinine 1.16, Estimated Creat Clear 92, Estimated GFR 61, Est GFR ( Amer) 74, Glucose 215 H, Calcium 9.1 I & O for Last 24 hours: Intake & Output 05/28/19 05/29/19 05/30/19 05/31/19 11:59 11:59 11:59 11:59 Intake Total 840 / 840 480 / 480 568 / 568 Output Total 5505 / 5705 1900 / 1900 2400 / 2400 Balance -4665 / -4865 -1420 / -1420 -1832 / -1832 Weight 291 lb 3 oz 264 lb 8 oz Microbiology Reports for the Last 24 Hours: Microbiology 05/28/19 12:12 Blood Blood Culture - Preliminary NO GROWTH AFTER 48 HOURS 05/28/19 12:12 Blood Blood Culture - Preliminary NO GROWTH AFTER 48 HOURS - *Routine Respiratory Exam Present: CTA bilaterally, crackles, diminished air movement. Absent: accessory muscle use, rales, rhonchi, wheezes - *Routine Cardiovascular Exam Present: RRR, murmur. Absent: gallop, rubs - *Routine Abdominal Exam Present: soft. Absent: tenderness, distended, guarding - *Routine Extremities Exam Absent: edema, calf tenderness - *Routine Neurological Exam Present: alert, oriented X3, moving all extremities Progress Note: A&P (1) Non-STEMI (non-ST elevated myocardial infarction) Status: Acute Current Visit: Yes (2) CHF (congestive heart failure), NYHA class IV Status: Acute Current Visit: Yes (3) A-fib Status: Chronic Current Visit: No (4) Coronary artery disease Status: Chronic Current Visit: No (5) Diabetes Status: Chronic Current Visit: No (6) History of DVT (deep vein thrombosis) Status: Chronic Current Visit: No (7) Hyperlipidemia Status: Chronic Current Visit: No (8) Hypertension Status: Chronic Current Visit: No (9) Obstructive sleep apnea Status: Chronic Current Visit: No (10) Anemia Status: Ruled-out Current Visit: No (11) Presence of IVC filter Status: Acute Current Visit: Yes (12) Pulmonary embolus Status: Acute Current Visit: Yes (13) Aortic stenosis Status: Acute Current Visit: Yes (14) Stenosis of celiac artery Status: Acute Current Visit: Yes Assessment and Plan for All Diagnoses:: 1. Aortic stenosis on echo, severity unclear. IESHA today for further evaluation. Unless aortic stenosis is critical, pt should be able to be discharged home. 2. NSTEMI with EF of 40% and inferior basal and posterior basal hypokinesis, s/p KELLIE to circumflex. On DAPT with ASA and plavix. On BB, JUN, digoxin and statin. 3. History of A. fib, will not start anticoagulation due to history of recurrent GI bleed. 4. DVT/PE, age unclear. Pt has IVC filter. No anticoagulation due to high risk for recurrent GI bleed 5. 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 Will follow up as outpatient.
--- NOTE | 2019-05-31 12:57 | Progress Note ---
[facility] Anesthesia Checklist - Patient Identification Patient Identification: Arm Band, Verbal (Name & ) - Structural Data Admitted From: Inpatient Planned Operative Procedure/s: IESHA Consent for Planned Operative Procedure(s) Verified: Yes Verified Documents: Surgical Consent, History and Physical - NPO Status Verified Time NPO: 00:00 - Chart Verification Results Verified: CBC, BMP, PT, PTT, INR - Additional verifications Fingerstick Blood Glucose: 238 Anesthesia Reactions: No - Airway Assessment C-Spine Mobility Assessed: Yes (Thick neck, limited neck ROM) TMJ Mobility Assessed: Yes Dentition: Edentulous - Neurological Assessment Level of Consciousness: Awake, Alert, Appropriate, Follows Commands Hx Seizures: No Numbness or tingling in extremities: No - Anesthesia Plan Anesthesia Risk discussed: Yes Anesthesia Plan: Verified ASA Class: III Anesthesia Type: MAC [facility] History I have reviewed the patient's past medical history: Yes Medical History: Reports:: Atrial Fibrillation, Congestive Heart Failure, Coronary Artery Disease, Cerebrovascular Accident (x2 (right sided weakness, no vision changes)), Deep Vein Thrombosis, Diabetes Mellitus Type 2, Hyperlipidemia, Hypertension, Myocardial Infarction Denies:: Cancer, Diabetes Mellitus Type 1, MRSA *Have you ever received a pneumonia vaccine?: Yes *Have you received a flu vaccine this season?: Yes Other Medical History: Reports: Arthritis, Sinus Problems Comment:: obesity, ALICIA uses CPAP Anesthesia experience/problems:: no complications Other Surgeries: Yes: CABG (x5 vessel), Cardiac Catheterization, Cardiac Surgery, Colonoscopy, Coronary Stent, Open Heart Surgery, Sinus Surgery Amputation: No Fractures: No - *Social History Educational Level: Completed High School Smoking Status: Former smoker Tobacco Type: cigarettes # Packs/Day (cigarettes): 2 #Yrs smoked (if former smoker): 15 Alcohol Intake: never Substance Use Type: denies use *Occupational Status:: disabled Housing: house Household Members: none *Travel in the last 8 weeks: None Family Hx:: No significant family history
--- NOTE | 2019-05-31 13:59 | Discharge Summary ---
General - General Admission date:: 05/28/19 Discharge date: 05/31/19 HPI HPI: Mr. Lynch once a 74-year-old male who initially presented to clinic this morning with worsening shortness of breath and palpitations over the past 1 to 2 weeks. Assessment in clinic showed concern for irregularly irregular tachycardia with EKG concerning for A. fib with RVR. Given dyspnea, report orthopnea, and tachyarrhythmia, ambulance was called to transport patient for direct admission to the hospital for further management. Cardiology was consulted to assist with further treatment. Of note patient has multiple comorbidities, per history, including recent GI bleeds necessitating cessation of his anticoagulation for A. fib, placement of an IVC filter, and status post colonoscopy revealing diverticulosis. Patient's atrial fibrillation has gradually become uncontrolled with a recent admission last year for significant bradycardia that resolved with holding his beta- araseli and reducing Cardizem dosing. Patient does have a cardiomyopathy by echocardiogram last year with an ejection fraction of approximately 40% with wall motion abnormalities consistent with prior IN and bypass surgery. The patient states his CPAP machine has been out of order over the last week and he has noticed increasing episodes of fast heart rate with increased lower extremity edema and increased shortness of breath, significantly worse with laying flat necessitating use of multiple pillows to sleep comfortably. On admission he was initiated on diuretics with significant diuresis of approximately a liter and initial improvement in respiratory status. He was also started on Cardizem to treat his A. fib with RVR. Upon assessment this afternoon, patient appears more comfortable and no longer in extremis. Was sitting comfortably in bedside chair with son in the room. Both were updated on the plan. Objective Vital signs: Temp Pulse Resp BP Pulse Ox 97.8 F 93 H 18 101/63 L 95 05/31/19 12:00 05/31/19 13:30 05/31/19 13:30 05/31/19 13:30 05/31/19 13:30 Results Labs on day of discharge: Labs from last 24 hours 05/31/19 05/31/19 05/31/19 11:04 06:32 06:32 WBC 12.8 H RBC 4.59 L Hgb 12.8 L Hct 40.9 L MCV 89.2 MCH 27.8 MCHC 31.2 L RDW 14.0 Plt Count 343 MPV 7.8 Neut % (Auto) 71.3 Lymph % (Auto) 19.4 [place] % (Auto) 5.6 Eos % (Auto) 3.4 Baso % (Auto) 0.3 Neut # (Auto) 9.1 H Lymph # (Auto) 2.5 [place] # (Auto) 0.7 Eos # (Auto) 0.4 Baso # (Auto) 0.0 Sodium 138 Potassium 4.2 Chloride 102 Carbon Dioxide 25 Anion Gap 15.2 H BUN 24 H D Creatinine 1.16 Estimated Creat Clear 92 Estimated GFR 61 Est GFR ( Amer) 74 Glucose 215 H POC Glucose 238 H Calcium 9.1 05/31/19 05/30/19 05/30/19 06:17 20:40 16:34 WBC RBC Hgb Hct MCV MCH MCHC RDW Plt Count MPV Neut % (Auto) Lymph % (Auto) [place] % (Auto) Eos % (Auto) Baso % (Auto) Neut # (Auto) Lymph # (Auto) [place] # (Auto) Eos # (Auto) Baso # (Auto) Sodium Potassium Chloride Carbon Dioxide Anion Gap BUN Creatinine Estimated Creat Clear Estimated GFR Est GFR ( Amer) Glucose POC Glucose 205 H 231 H 303 H* Calcium Preliminary micro results at discharge 05/28/19 12:12 Blood Culture - Preliminary Blood NO GROWTH AFTER 48 HOURS 05/28/19 12:12 Blood Culture - Preliminary Blood NO GROWTH AFTER 48 HOURS DS: Diagnosis - Discharge Diagnosis (1) Non-STEMI (non-ST elevated myocardial infarction) Status: Acute (2) CHF (congestive heart failure), NYHA class IV Status: Acute (3) A-fib Status: Chronic (4) Coronary artery disease Status: Chronic (5) Diabetes Status: Chronic (6) History of DVT (deep vein thrombosis) Status: Chronic (7) Hyperlipidemia Status: Chronic (8) Hypertension Status: Chronic (9) Obstructive sleep apnea Status: Chronic (10) Anemia Status: Ruled-out (11) Presence of IVC filter Status: Acute (12) Pulmonary embolus Status: Acute (13) Aortic stenosis Status: Acute (14) Stenosis of celiac artery Status: Acute Discharge Plan - Patient Discharge Instructions ACTIVITY: Ambulate as tolerated DIET: continue same diet Patient Instructions: Type 2 Diabetes, DI for Hammer Toe, DI for Heart Failure, DI for Pulmonary Embolism, DI for Bunion, DI for Osteoarthritis, DI for Surgical Site Infection, DI for Peripheral Edema -- Bilateral, Low-Sodium Diet, DI for Nail Bed Injury, DI for Onychomycosis - Follow up Plan Follow up with: Juan Pablo Da Silva MD [Primary Care Provider] - Vicente Angel MD [Staff Physician] - Disposition: Home, Self-Senior Care Medications: Home Medications Medication Instructions Recorded Confirmed Type Insulin Aspart [Novolog Flexpen] 0 units SQ ACHS 02/26/18 05/28/19 History Umeclidinium Brm/Vilanterol Tr 1 each IH DAILY 02/26/18 05/28/19 History [Anoro Ellipta 62.5-25 Mcg INH] lisinopriL [Lisinopril 20mg Tab] 20 mg PO BID 02/26/18 05/28/19 History Montelukast Sodium [Montelukast 10 mg PO DAILY 09/13/18 05/28/19 History 10mg Tab] dilTIAZem HCL [Cardizem 180mg ER 180 mg PO BID 04/11/19 05/28/19 History Cap] Aspirin [Aspir 81] 81 mg PO DAILY 05/28/19 05/28/19 History Azelastine HCl [Azelastine Nasal 137 mcg NS BID 05/28/19 05/28/19 History [employer] 30mL Bottle] Furosemide [Furosemide 40MG tAB] 40 mg PO DAILY 05/28/19 05/28/19 History Metformin HCl [Metformin 1000mg 1,000 mg PO BID 05/28/19 05/28/19 History Tablets] [place]-3 Fatty Acids [Fish Oil] 300 mg PO TID 05/28/19 05/28/19 History allopurinoL [Allopurinol 100mg 100 mg PO BID 05/28/19 05/28/19 History tablet] Fluticasone Propionate 2 sprays IN DAILY 05/29/19 05/29/19 History Atorvastatin Calcium [Lipitor 40mg 40 mg PO HS 30 Days #30 tab 05/31/19 Rx Tablet] Clopidogrel Bisulfate [Plavix 75mg 75 mg PO DAILY 30 Days #30 tab 05/31/19 Rx Tab] Digoxin [Digoxin 0.125mg Tablet] 125 mcg PO DAILY 30 Days #30 tab 05/31/19 Rx bisoproloL fumarate [Zebeta 5mg 10 mg PO BID 30 Days #60 tab 05/31/19 Rx tablet] Prescriptions/Medication Reconciliation: New bisoproloL fumarate [Zebeta 5mg tablet] 10 mg PO BID 30 Days #60 tab Digoxin [Digoxin 0.125mg Tablet] 125 mcg PO DAILY 30 Days #30 tab Atorvastatin Calcium [Lipitor 40mg Tablet] 40 mg PO HS 30 Days #30 tab Clopidogrel Bisulfate [Plavix 75mg Tab] 75 mg PO DAILY 30 Days #30 tab Continued Umeclidinium Brm/Vilanterol Tr [Anoro Ellipta 62.5-25 Mcg INH] 1 each IH DAILY lisinopriL [Lisinopril 20mg Tab] 20 mg PO BID Montelukast Sodium [Montelukast 10mg Tab] 10 mg PO DAILY [place]-3 Fatty Acids [Fish Oil] 300 mg PO TID Fluticasone Propionate 2 sprays IN DAILY Insulin Aspart [Novolog Flexpen] 0 units SQ ACHS Azelastine HCl [Azelastine Nasal [employer] 30mL Bottle] 137 mcg NS BID allopurinoL [Allopurinol 100mg tablet] 100 mg PO BID Furosemide [Furosemide 40MG tAB] 40 mg PO DAILY Metformin HCl [Metformin 1000mg Tablets] 1,000 mg PO BID Aspirin [Aspir 81] 81 mg PO DAILY Discontinued dilTIAZem HCL [Cardizem 180mg ER Cap] 180 mg PO BID - Problem Reconciliation Problems Reviewed?: Yes
--- NOTE | 2019-05-31 16:17 | Cardiology Report ---
APPROVED REPORT EXAM: Comprehensive 2D, Doppler, and color-flow Echocardiogram Senior Test Engineer: Elissa Lima RDCS Ht: 5 ft 9 in Wt: 291lbs BSA: 2.42 BP: 127/72 mmHg Indications: Aortic Valve Disease, Congestive Heart Failure , Hyperlipidemia, Obesity, Atrial Fibrillation, [place], HTN, PE, DVT, IVC FILTER, DM Procedure After obtaining informed consent, patient underwent transesophageal echo in the [employer]. Transesophageal probe was inserted and advanced into esophagus without difficulty by Dr. Isaiah Ross. Throughout the procedure, the blood pressure, pulse oximetry, cardiac rhythm, and rate were monitored. The patient tolerated the procedure without adverse effects. Recovery from conscious sedation was uneventful and vital signs were stable. Left Ventricle Left ventricle is normal size, mild concentric left ventricular hypertrophy, visually estimated ejection fraction is approximately 45% in the obtained views. Right Ventricle Right ventricle is mildly enlarged with normal contractility. Atria Left atrium is moderately enlarged, left atrial appendage is free of thrombus, there is poor appendage flow by spectral Doppler. Right atrium is mildly enlarged. Intra-atrial septum is intact, there is no flow across the interatrial septum, agitated saline contrast reveals identify intracardiac shunt. Aortic Valve Aortic valve is thickened and calcified, with restriction in the leaflet mobility, morphologically there is moderate aortic stenosis. There is mild aortic insufficiency. Mitral Valve Mitral valve leaflets are minimally thickened, there is mild to moderate mitral regurgitation. Tricuspid Valve Tricuspid valve is minimally thickened, there is mild to moderate tricuspid regurgitation. Pulmonic Valve Pulmonic valve is grossly normal. Great Vessels Aortic root is normal size. Nonmobile atheromatous plaque seen in the arch and descending thoracic aorta. Pericardium No significant pericardial effusion noted. Conclusion 1. Biatrial enlargement, normal left ventricular size, mild concentric left ventricular hypertrophy, visually estimated ejection fraction 45% in the obtained views. 2. Thickened and calcified aortic valve with moderate aortic stenosis, there is mild aortic insufficiency. 3. Mildly enlarged right ventricle with normal contractility. 4. Mild to moderate mitral and tricuspid regurgitation. 5. No significant pericardial effusion noted. Electronically signed by : Blake Tariq, 05/31/2019 16:16:40
== END 2019-05-31 17:31 | disposition home or self-care (01) | DRG 246 ==
LOC: 2ND → OBSVTOIN 10:28 → 2ND 10:54 → ICU 18:36 → 2ND 05-31 02:23
PROVIDERS: ADMIT Internal Medicine Adolescent Medicine; ATTEND Internal Medicine Adolescent Medicine
CPT/HCPCS: 36415; 71020; 71046; 71275; 80048; 80053; 82962; 83605; 83735; 83880; 84436; 84443; 84479; 84484; 85025; 85347; 87040; 87070; 87077; 87186; 87205; 92928; 93005; 93306; 93312; 93459; 93926; 93970; 94761; 99152; 99153; C1725; C1760; C1769; C1876; C1894; C9600; J1644; Q9957; Q9967

== ENCOUNTER → 2019-06-06 11:27 | Outpatient (CLI) | payer MEDICARE, SELFPAY ==
[2019-06-06 14:17] LABS: Basophils % 0.3 % (0.1-2.0); Eosinophils # 0.1 K/mm3 (0.0-0.4); Eosinophils % 1.5 % (0.1-12.0); Hematocrit 39.9 % (42.0-52.0); Hemoglobin 12.7 g/dL (14.1-18.0); Lymphocytes # 1.5 K/mm3 (0.7-4.5); Mean Corpuscular HGB Conc 31.8 g/dL (31.8-35.4); Mean Corpuscular Hemoglobin 27.3 pg (27.0-31.2); Mean Corpuscular Volume 85.9 fl (80-94); Mean Platelet Volume 8.5 fl (7.4-10.4); Monocytes # 0.4 K/mm3 (0.1-1.0); Monocytes % 4.7 % (1.7-9.3); Neutrophils # 6.7 K/mm3 (1.8-7.8); Neutrophils % 76.5 % (37.0-80.0); Platelet Count 264 K/mm3 (142-424); Red Blood Count 4.64 M/mm3 (4.60-6.20); Red Cell Distribution Width 14.2 % (11.5-17.5); White Blood Count 8.7 K/mm3 (4.8-10.8)
[2019-06-06 15:09] LABS: Alanine Aminotransferase 26 U/L (21-72); Albumin Level 3.1 g/dL (3.4-5.0); Albumin/Globulin Ratio 0.8 (1.1-1.8); Alkaline Phosphatase 68 U/L (46-116); Aspartate Amino Transferase 21 U/L (15-37); Bilirubin,Total 0.3 mg/dL (0.2-1.0); Blood Urea Nitrogen 25 mg/dL (7-18); Calcium 8.6 mg/dL (8.5-10.1); Carbon Dioxide 18 mmol/L (21.0-32.0); Chloride 106 mmol/L (98-107); Creatine Kinase 83 U/L (39-308); Creatinine,Serum 1.45 mg/dL (0.70-1.30); Digoxin 0.75 ng/mL (0.90-2.00); Estimated Glomerular Filt Rate 47 ml/min (>60); GFR (African American) 57 ML/MIN (>60); Globulin 3.7 gm/dl (1.3-3.2); Glucose 105 mg/dL (74-106); Magnesium 1.5 mg/dL (1.4-2.2); Sodium 142 mmol/L (137-145); Total Protein,Serum 6.8 g/dL (6.4-8.2)
== END ==
PROVIDERS: Visit Provider Nurse Practitioner Family
DX: I50.21 Acute systolic (congestive) heart failure (principal); I48.91 Unspecified atrial fibrillation
CPT/HCPCS: 36415; 80053; 80162; 82550; 83735; 85025

== ENCOUNTER → 2019-06-13 10:30 | Outpatient (CLI) | payer MEDICARE, SELFPAY ==
[2019-06-13 13:49] LABS: Potassium 4.5 mmoL/L (3.5-5.1)
[2019-06-13 14:27] LABS: Chloride 100 mmol/L (98-107); Sodium 136 mmol/L (136-145)
[2019-06-13 14:30] LABS: Anion Gap 15.5 mEq/L (5-15); Blood Urea Nitrogen 15 mg/dl (9-20); Carbon Dioxide 25 mmol/L (22.0-30.0); Estimated Glomerular Filt Rate 65 ml/min (>60); GFR (African American) 79 ML/MIN (>60)
[2019-06-13 14:31] LABS: Calcium 9.6 mg/dl (8.4-10.2); Glucose 169 mg/dl (74-100); Magnesium 1.4 mg/dl (1.6-2.3)
== END ==
PROVIDERS: Visit Provider Nurse Practitioner Family
DX: I50.21 Acute systolic (congestive) heart failure (principal)
CPT/HCPCS: 36415; 80048; 80162; 83735

== ENCOUNTER → 2020-11-10 09:58 | Outpatient (CLI) | payer MEDICARE, MEDICAID, SELFPAY ==
--- NOTE | 2020-11-10 10:06 | CT_ITS ---
PROCEDURE: CT CHEST WO CON CLINCAL INDICATION: LUNG MASS COMPARISON: CT CT ANGIO CHEST from 05/28/2019 TECHNIQUE: Unenhanced CT chest with axial, coronal, and sagittal multiplanar reformations. Dose modulation, automated exposure control, and/or iterative reconstruction were used for dose reduction. FINDINGS: Images are slightly degraded due to motion artifact. LUNGS:Post therapeutic changes are noted in the right upper lobe. There is focal areas of scarring noted in the right upper lobe with subpleural atelectasis. This is unchanged compared to the prior study. No new focal lung nodules. No lobar consolidation, pleural effusions or pneumothorax. Minor bibasal atelectasis is noted. Calcified granuloma in the right upper lobe. No suspicious lung nodules. Airway: The central airways are patent. HEART / GREAT VESSELS Heart:The heart is normal size without pericardial effusion. Vessels: Atherosclerotic calcifications are present in the aorta and multiple coronary arteries. Midline sternotomy and coronary arterial bypass grafts are noted. Left subclavian transvenous pacemaker noted. MEDIASTINUM Mediastinum: Few calcified lymph nodes noted in the mediastinum. No evidence of hilar or mediastinal lymphadenopathy. UPPER ABDOMEN: Abdomen:The visualized upper abdominal solid organs are unremarkable within the limitations of unenhanced study. The visualized colon demonstrates multiple uncomplicated colonic diverticula. Small hiatus hernia is noted. BONES Bones: Multilevel degenerative changes of the visualized thoracic spine. Thyroid: There is evidence of a focal nodule with calcification noted in the visualized supraclavicular region posterior to the right lobe of thyroid gland measuring 1.6 centimeters, unchanged compared to prior study. This most likely represents a thyroid nodule. Lymph node should be considered. The left lobe of thyroid gland is unremarkable. IMPRESSION: Post therapeutic changes noted in the right upper lobe. No evidence of residual/recurrent disease. No significant interval change compared to prior study. Dictated by: Serenity Nesbitt 11/10/2020 13:26 Serenity Nesbitt in OV 11/10/2020 13:26
== END ==
PROVIDERS: PCP Internal Medicine Adolescent Medicine; Visit Provider Internal Medicine Critical Care Medicine
DX: R91.8 Other nonspecific abnormal finding of lung field (principal)
CPT/HCPCS: 71250

== ENCOUNTER → 2021-01-30 18:08 | Outpatient (CLI) | payer MEDICARE, MEDICAID, SELFPAY ==
[2021-01-30 18:57] LABS: Basophils # 0.1 K/mm3 (0-0.2); Basophils % 0.6 % (0.1-2.0); Eosinophils # 0.6 K/mm3 (0.0-0.4); Eosinophils % 7.4 % (0.1-12.0); Hematocrit 44.1 % (42.0-52.0); Hemoglobin 14.1 g/dL (14.1-18.0); Lymphocytes # 1.5 K/mm3 (0.7-4.5); Lymphocytes % 17.6 % (10-50); Mean Corpuscular Hemoglobin 32.1 pg (27.0-31.2); Mean Corpuscular Volume 100.3 fl (80-94); Mean Platelet Volume 10.4 fl (7.4-10.4); Monocytes # 0.5 K/mm3 (0.1-1.0); Monocytes % 5.4 % (1.7-9.3); Neutrophils # 5.9 K/mm3 (1.8-7.8); Platelet Count 289 K/mm3 (142-424); Red Cell Distribution Width 14.5 % (11.5-17.5); White Blood Count 8.5 K/mm3 (4.8-10.8)
[2021-01-30 19:18] LABS: 25-OH Vitamin D, Total 28.8 ng/mL (30-100)
[2021-01-30 19:54] LABS: Hemoglobin A1C 7.4 % (4.0-6.0)
[2021-01-30 20:11] LABS: Alanine Aminotransferase 30 U/L (12-78); Albumin Level 3.5 g/dl (3.5-5.0); Albumin/Globulin Ratio 1.2 (1.1-1.8); Alkaline Phosphatase 82 U/L (38-126); Anion Gap 13.5 mEq/L (5-15); Aspartate Amino Transferase 31 U/L (17-59); Bilirubin,Total 0.5 mg/dl (0.2-1.3); Blood Urea Nitrogen 12 mg/dl (9-20); Calcium 9.2 mg/dl (8.4-10.2); Carbon Dioxide 26 mmol/L (22.0-30.0); Chloride 105 mmol/L (98-107); Chol/HDL Ratio 5.5 (1-3.5); Cholesterol 159 mg/dl (140-200); Estimated Glomerular Filt Rate 82 ml/min (>60); GFR (African American) 99 ML/MIN (>60); Glucose 131 mg/dl (74-100); HDL Cholesterol 29 mg/dl (40-60); Potassium 4.5 mmoL/L (3.5-5.1); Sodium 140 mmol/L (136-145); Total Protein,Serum 6.5 g/dl (6.3-8.2); Triglycerides 178 mg/dl (30-150); VLDL Cholesterol 36 mg/dL (0-40)
[2021-01-30 20:22] LABS: Direct LDL Cholesterol 101.32 mg/dL (100-129)
== END ==
PROVIDERS: Visit Provider Nurse Practitioner Family
DX: Z00.00 Encounter for general adult medical examination without abnormal findings (principal); I25.10 Atherosclerotic heart disease of native coronary artery without angina pectoris; I48.20 Chronic atrial fibrillation, unspecified; E11.69 Type 2 diabetes mellitus with other specified complication; E78.5 Hyperlipidemia, unspecified; E55.9 Vitamin D deficiency, unspecified; I63.9 Cerebral infarction, unspecified; Z79.4 Long term (current) use of insulin
CPT/HCPCS: 80053; 80061; 82306; 83036; 85025